=== PATIENT | male | born 1935 | race Caucasian/White ===

== ENCOUNTER 2018-05-05 16:23 | Inpatient (IN) | payer OTHER ==
--- NOTE | 2018-05-05 17:10 | PDOC ---
Attending Attestation - Resident Resident Name: Susy Witt - ED Attending Attestation I have performed the following: I have examined & evaluated the patient, The case was reviewed & discussed with the resident, I agree w/resident's findings & plan, Exceptions are as noted - HPI HPI: 05/05/18 18:12 Patient is a 82 M, with PMHx of essential tremor, DM, who presents s/p fall. Patient states that at 3:45 pm he was walking and fell on his right hip. He states that he was unable to get up on his own and called 911. Patient currently reports difficulty moving right side, secondary to pain. Pt denies any head injury, loc, neck pain, back pain, numbness/tingling/weakness, cp, sob , f/c. Allergies: NSAIDS PCP: Prince Balderas - Physicial Exam PE: 05/05/18 18:13 GENERAL: The patient is awake, alert, and fully oriented, Nontoxic - in no acute distress. HEAD: Normocephalic, atraumatic. EYES: extraocular movements intact, sclera anicteric, conjunctiva clear. NECK: Normal range of motion, supple ABDOMEN: Soft, nontender, No guarding, no rebound.No CVA tenderness EXTREMITIES: Palpable pulses. Left side --> FROM Right side --> no pain on log roll, no ttp, +pain with passive flexion/extension, no brusing noted. - Medical Decision Making 05/05/18 17:06 ham r/o fx with xray if nondiagnostic but still in pain will obtain CT 05/05/18 19:06 xray noted for femoral neck fx will admit for further management of his hip fx Heart Score/ECG Review - ECG Impressions Comment:: 05/05/18 18:18 Twelve-lead EKG was performed and reviewed by me. There is normal sinus rhythm with a normal rate. rate of 72 abnormal r wave progression no st changes suggestive of acut ischemia
[2018-05-05] MEDS ORDERED: morphine CARPU-JECT 2 MG/1 ML DISP.SYRIN IVPUSH ONE (17:11)
[2018-05-05] MEDS ORDERED: MORPHINE SULFATE 2 MG/ML VIAL ONE (17:15)
--- NOTE | 2018-05-05 17:19 | PDOC ---
History of Present Illness - General Chief Complaint: Injury Stated Complaint: INJURY Time Seen by Provider: 05/05/18 16:41 History Source: Patient Exam Limitations: No Limitations - History of Present Illness Initial Comments: 05/05/18 17:14 Pt is a 82yo m with PMH of DM and essential tremor presenting to ED because he fell on his right hip. Pt said that he was outside and fell on his right hip at a quarter to 4. He was unable to get up and so he called the ambulance. Pt said he could not move is L or R leg at the time. He denies hitting his head, losing consciousness. He denies pain in any other joint besides his R hip. He denies numbness, tingling, loss of bladder/bowel, pain in the back, neck pain, headache , knee pain, ankle pain, shortness of breath, chest pain. He attributes his fall to his tremors. He is not on any blood thinners PMH: see hpi PSH: R and L knee arthroplasty Meds: see med rec Allergies: PCN, Naprosyn, Sulindac, indomethacin, ASA Social: denies tobacco, alcohol, illicit drug use Past History - Past Medical History Allergies/Adverse Reactions: Allergies Allergy/AdvReac Type Severity Reaction Status Date / Time indomethacin Allergy Verified 05/05/18 17:05 naproxen [From Naprosyn] Allergy Verified 05/05/18 17:05 Penicillins Allergy Verified 05/05/18 17:05 sulindac Allergy Verified 05/05/18 17:05 Home Medications: Ambulatory Orders Cetyl Alc/Stearyl Alc/Pg/Sls [Cetaphil Cream] 1 applic TD BID 05/05/18 Colchicine 0.6 mg PO BID 05/05/18 Glipizide [Glipizide ER] 5 mg PO DAILY 05/05/18 Glipizide [Glipizide ER] 10 mg PO DAILY 05/05/18 Pioglitazone HCl [Actos] 30 mg PO DAILY 05/05/18 Primidone [Mysoline -] 250 mg PO HS 05/05/18 Primidone [Mysoline] 125 mg PO AM 05/05/18 Simvastatin 40 mg PO DAILY 05/05/18 Topiramate 75 mg PO BID 05/05/18 Triamterene/Hydrochlorothiazid [Triamterene-Hctz 37.5-25 mg Cp] 1 tab PO DAILY 05/05/18 COPD: No Diabetes: Yes Hypercholesterolemia: Yes Other medical history: gout, essential tremors - Suicide/Smoking/Psychosocial Hx Smoking History: Never smoked *Physical Exam - Vital Signs Last Vital Signs Temp Pulse Resp BP Pulse Ox 98.3 F 71 18 125/66 98 05/05/18 16:29 05/05/18 16:29 05/05/18 16:29 05/05/18 16:29 05/05/18 16:29 - Physical Exam Cardiovascular: positive: Regular Rhythm, Regular Rate, S1, S2 Vascular Pulses: Femoral (R): 2+, Femoral (L): 2+, Carotid (R): 2+, Carotid (L) : 2+, Dorsalis-Pedis (R): 2+, Doralis-Pedis (L): 2+ Musculoskeletal: positive: Other (R hip tenderness). negative: CVA Tenderness Extremity: positive: Normal Capillary Refill, Tender (tender to palpation in R hip joint), Pelvis Stable. negative: Normal Range of Motion (Unable to move R leg, would not let me passively move R leg) Neurologic: positive: art librarian II-XII NML intact, Fully Oriented, Normal Mood/Affect , Normal Response. negative: Motor Strength 5/5 (unable to fully evaluate R leg motor strength due to inability to move. Pt can move ankle and feet. ) Deep Tendon Reflexes: Knee (L): 2+, Knee (R): 2+ ED Treatment Course - LABORATORY CBC & Chemistry Diagram: 05/05/18 18:55 05/05/18 18:55 - RADIOLOGY Radiology Studies Ordered: Category Date Time Status HIP & PELVIS-LEFT [RAD] Stat Radiology 05/05/18 17:11 Ordered Medical Decision Making - Medical Decision Making 05/05/18 17:21 Pt is a 82yo m with PMH of DM and essential tremor presenting to ED because he fell on his right hip. Concern for hip fracture. Will order Xray Xray: femoral neck fracture. will admit ortho consulted *DC/Admit/Observation/Transfer Diagnosis at time of Disposition: Femoral neck fracture Qualifiers: Encounter type: initial encounter Fracture type: closed Laterality: left Qualified Code(s): S72.002A - Fracture of unspecified part of neck of left femur , initial encounter for closed fracture - Discharge Dispostion Decision to Admit order: Yes - Referrals - Patient Instructions - Post Discharge Activity
[2018-05-05 19:07] LABS: BASO % 0.3 % (0-2.0); EOS % 5.9 % (0-4.5); HEMATOCRIT 38.6 % (35.4-49); HEMOGLOBIN 12.8 GM/dL (11.7-16.9); LYMPH % 27.2 % (8-40); MCH 30.6 pg (25.7-33.7); MCHC 33.1 g/dl (32.0-35.9); MEAN CELL VOLUME 92.5 fl (80-96); MEAN PLT VOLUME 9.1 fl (7.5-11.1); MONO % 9.4 % (3.8-10.2); NEUT % 57.2 % (42.8-82.8); PLATELET COUNT 223 K/MM3 (134-434); RBC 4.18 M/mm3 (4.00-5.60); RDW 13.6 % (11.9-15.9); WHITE BLOOD COUNT 5.5 K/mm3 (4.0-10.0)
--- NOTE | 2018-05-05 19:39 | PN ---
Teaching Attending Note Name of Resident: Sriram Caldera ATTENDING PHYSICIAN STATEMENT I saw and evaluated the patient. I reviewed the resident's note and discussed the case with the resident. I agree with the resident's findings and plan as documented. SUBJECTIVE: Patient is an 82 year old man with PMHx of essential tremor, hyperlipidemia, ? gout, bilateral total knee replacement and NIDDM, who presents after a fall with right hip pain. Patient states that at 3:45 pm he was walking and fell on his right hip. He states that he was unable to get up on his own and called 911. Patient currently reports difficulty moving right side, secondary to pain. He denies any head injury, loc, neck pain, back pain, numbness/tingling/weakness , cp, or sob. OBJECTIVE: Alert Vital Signs Period Temp Pulse Resp BP Sys/Hill Pulse Ox Last 24 Hr 98.3 F 71 18 125/66 98 HEENT: No Jaundice, eye redness or discharge, PERRLA, EOMI. Normocephalic, atraumatic. External ears are normal and hearing is grossly intact. No nasal discharge. Neck: Supple, nontender. No palpable adenopathy or thyromegaly. No JVD Chest: Good effort. Clear to auscultation and percussion. Heart: Regular. No S3, rub or murmur Abdomen: Not distended, soft, nontender and no HSM. No rebound or guarding. Normoactive bowel sounds. Ext: External rotation of right leg. Distal sensory and motor function intact. Tender right hip and limited ROM. Peripheral pulses intact. No leg edema. Skin: Warm and dry. No petechiae, rash or ecchymosis. Neuro: Alert. Oriented x3. CN 2-12 grossly intact. Sensation grossly intact in all four extremities and DTR are symmetric. Home Medications Medication Instructions Recorded Cetyl Alc/Stearyl Alc/Pg/Sls 1 applic TD BID 05/05/18 [Cetaphil Cream] Colchicine 0.6 mg PO 05/05/18 Glipizide [Glipizide ER] 5 mg PO DAILY 05/05/18 Glipizide [Glipizide ER] 10 mg PO DAILY 05/05/18 Pioglitazone HCl [Actos] 30 mg PO DAILY 05/05/18 Primidone [Mysoline -] 250 mg PO HS 05/05/18 Simvastatin 40 mg PO DAILY 05/05/18 Topiramate 25 mg PO BID 05/05/18 Triamterene/Hydrochlorothiazid 1 tab PO DAILY 05/05/18 [Triamterene-Hctz 37.5-25 mg Cp] Abnormal Lab Results 05/05/18 18:55 Eosinophils % 5.9 H ASSESSMENT AND PLAN: 1. Fall/Right femoral neck fracture - Features consistent with a mechanical fall. Ortho consulted. Pain control with IV morphine, getting INR, CXR and EKG. NPO after midnight. Check uric acid. 2. DM - For now, we will hold the home diabetes drugs and implement sliding scale insulin regimen. Provide comprehensive diabetes care with patient teaching and counseling about the importance of euglycemia, eye care and foot care. 3. DVT prophylaxis - Lovenox 40 mg SQ q 24 hours. 4. Advance directives - Full code
[2018-05-05 20:30] LABS: ALBUMIN 3.9 g/dl (3.4-5.0); ALK PHOS 66 U/L (45-117); ANION GAP 12 MMOL/L (8-16); BILIRUBIN,TOTAL 0.2 mg/dL (0.2-1.0); BLOOD UREA NITROGEN 40 mg/dL (7-18); CHLORIDE 105 mmol/L (98-107); CO2 27 mmol/L (21-32); CREATININE 1.4 mg/dL (0.7-1.3); GLUCOSE,RANDOM 116 mg/dL (74-106); POTASSIUM 4.7 mmol/L (3.5-5.1); SGOT/AST 21 U/L (15-37); SGPT/ALT 28 U/L (12-78); SODIUM 144 mmol/L (136-145); TOT PROT 7.5 g/dl (6.4-8.2)
[2018-05-05] MEDS ORDERED: MORPHINE SULFATE 2 MG/ML VIAL IVPUSH PRN (20:38)
[2018-05-05] MEDS ORDERED: SODIUM CHLORIDE 1,000 ML IV SCH (20:45)
[2018-05-05 20:47] LABS: INR 1.04 (0.83-1.09); PROTHROMBIN TIME (PATIENT) 11.7 SEC (9.7-13.0)
--- NOTE | 2018-05-05 21:06 | HP ---
CHIEF COMPLAINT: Fall, right hip pain PCP: Dr. Balderas HISTORY OF PRESENT ILLNESS: 82 yo male with PMH NIDDM and essential tremor, presented to the ED s/p mechanical fall in the parking lot where he lives. He states he was getting out of his car around 16:00 and tripped into the grass. He was alone and the fall was unwitnessed, though he says he did not lose consciousness or hit his head. He said he landed on his right hip and states he immediate knew he "had done some damage" as he could not move the leg or get up due to pain. A neighbor noted him on the ground and came out to help. EMS was called at that time. Pt has baseline peripheral neuropathy in his feet b/l but denies any additional decreased sensation or parasthesias. He says his pain is currently a 6 out of 10 and that the morphine has helped. ER course was notable for: (1) Right Hip Radiograph noted with slightly displaced fracture of femoral neck (2) Morphine 2 mg IV (3) Recent Travel: none PAST MEDICAL HISTORY: NIDDM Essential Tremor PAST SURGICAL HISTORY: B/L knee replacements Social History: Smoking: denies Alcohol: Moderate Drugs: denies Family History: Allergies indomethacin Allergy (Verified 05/05/18 17:05) naproxen [From Naprosyn] Allergy (Verified 05/05/18 17:05) Penicillins Allergy (Verified 05/05/18 17:05) sulindac Allergy (Verified 05/05/18 17:05) HOME MEDICATIONS: Home Medications Medication Instructions Recorded Cetyl Alc/Stearyl Alc/Pg/Sls 1 applic TD BID 05/05/18 [Cetaphil Cream] Colchicine 0.6 mg PO BID 05/05/18 Glipizide [Glipizide ER] 5 mg PO DAILY 05/05/18 Glipizide [Glipizide ER] 10 mg PO DAILY 05/05/18 Pioglitazone HCl [Actos] 30 mg PO DAILY 05/05/18 Primidone [Mysoline -] 250 mg PO HS 05/05/18 Primidone [Mysoline] 125 mg PO AM 05/05/18 Simvastatin 40 mg PO DAILY 05/05/18 Topiramate 75 mg PO BID 05/05/18 Triamterene/Hydrochlorothiazid 1 tab PO DAILY 05/05/18 [Triamterene-Hctz 37.5-25 mg Cp] REVIEW OF SYSTEMS CONSTITUTIONAL: Absent: fever, chills, diaphoresis, generalized weakness, malaise, loss of appetite, weight change HEENT: Absent: rhinorrhea, nasal congestion, throat pain, throat swelling, difficulty swallowing, mouth swelling, ear pain, eye pain, visual changes CARDIOVASCULAR: Absent: chest pain, syncope, palpitations, irregular heart rate, lightheadedness , peripheral edema RESPIRATORY: Absent: cough, shortness of breath, dyspnea with exertion, orthopnea, wheezing, stridor, hemoptysis GASTROINTESTINAL: Absent: abdominal pain, abdominal distension, nausea, vomiting, diarrhea, constipation, melena, hematochezia GENITOURINARY: Absent: dysuria, frequency, urgency, hesitancy, hematuria, flank pain, genital pain MUSCULOSKELETAL: Right hip pain Absent: myalgia, arthralgia, joint swelling, back pain, neck pain SKIN: Absent: rash, itching, pallor HEMATOLOGIC/IMMUNOLOGIC: Absent: easy bleeding, easy bruising, lymphadenopathy, frequent infections ENDOCRINE: Absent: unexplained weight gain, unexplained weight loss, heat intolerance, cold intolerance NEUROLOGIC: Absent: headache, focal weakness or paresthesias, dizziness, unsteady gait, seizure, mental status changes, bladder or bowel incontinence PSYCHIATRIC: Absent: anxiety, depression, suicidal or homicidal ideation, hallucinations. PHYSICAL EXAMINATION Vital Signs - 24 hr 05/05/18 16:29 Temperature 98.3 F Pulse Rate 71 Respiratory 18 Rate Blood Pressure 125/66 O2 Sat by Pulse 98 Oximetry (%) GENERAL: A&O, no acute distress HEAD: Normocephalic, atraumatic. EYES: PERRL, EOMI, no scleral icterus EARS, NOSE, THROAT: oropharynx clear without exudates. Moist mucous membranes. NECK: supple without lymphadenopathy LUNGS: CTA b/l, no crackles or wheezes HEART: Regular rate and rhythm, normal S1 and S2 without murmur, rub or gallop. ABDOMEN: Soft, nontender to palpation, normoactive bowel sounds MUSCULOSKELETAL: Right hip pain with movement. minimal pain on palpation, Right leg externally rotated. No CVA tenderness. UPPER EXTREMITIES: 2+ pulses, warm, well-perfused. No cyanosis. No clubbing. No peripheral edema. LOWER EXTREMITIES: 2+ pulses, warm, well-perfused. No calf tenderness. No peripheral edema. Decreased sensation distal b/l legs NEUROLOGICAL: Cranial nerves II-XII grossly intact. Normal speech. 5/5 strength on LLE, RLE exam limited due to pain. PSYCHIATRIC: Cooperative. Good eye contact. Appropriate mood and affect. SKIN: Warm, dry, normal turgor, no rashes or lesions noted Laboratory Results - last 24 hr 05/05/18 05/05/18 05/05/18 18:55 18:55 19:31 WBC 5.5 RBC 4.18 Hgb 12.8 Hct 38.6 MCV 92.5 MCH 30.6 MCHC 33.1 RDW 13.6 Plt Count 223 MPV 9.1 Absolute Neuts (auto) 3.2 Neutrophils % 57.2 Lymphocytes % 27.2 Monocytes % 9.4 Eosinophils % 5.9 H Basophils % 0.3 Nucleated RBC % 0 PT with INR 11.70 INR 1.04 PTT (Actin FS) Sodium 144 Potassium 4.7 Chloride 105 Carbon Dioxide 27 Anion Gap 12 BUN 40 H Creatinine 1.4 H Creat Clearance w eGFR 48.52 Random Glucose 116 H Calcium 9.0 Total Bilirubin 0.2 AST 21 ALT 28 Alkaline Phosphatase 66 Total Protein 7.5 Albumin 3.9 05/05/18 19:55 WBC RBC Hgb Hct MCV MCH MCHC RDW Plt Count MPV Absolute Neuts (auto) Neutrophils % Lymphocytes % Monocytes % Eosinophils % Basophils % Nucleated RBC % PT with INR INR PTT (Actin FS) 25.2 Sodium Potassium Chloride Carbon Dioxide Anion Gap BUN Creatinine Creat Clearance w eGFR Random Glucose Calcium Total Bilirubin AST ALT Alkaline Phosphatase Total Protein Albumin ASSESSMENT/PLAN: 82 yo male with PMH NIDDM and essential tremor admitted to Med/Surg following Right hip fracture s/p mechanical fall. Right Hip Fracture -Pt s/p mechanical fall into the grass where he landed on his right side -Hip Radiograph noted with slightly displaced fracture of the femoral neck -ED discussed case with ortho who will place on the OR schedule for AM -Pain control with Morphine 2mg IV Q4 Preop Optimization for Surgical Repair in AM -Type and Screen -CXR noted with no acute lung pathology -ECG -Pain control with Morphine as above -NPO after midnight -Ortho consulted, will put on OR schedule for AM NIDDM -Pt has NIDDM with some peripheral neuropathy -Follow up quarterly with podiatry at [facility] for nail and foot care -unsure of pt's last A1C -A1C has never been checked here as per EMR, will order A1C ALISIA vs CKD secondary to NIDDM -BUN/Cr 40/1.4, ratio suggestive of prerenal pathophysiology -Pt with NIDDM and peripheral neuropathy could also suggest renal Hx Gout? -Pt denies any PMH other than mentioned above, though he is on Colchicine verified by pharmacy -Pt not having any acute gout flareups currently -Will check current uric acid level DVT Prophylaxis -Heparin 5000 units SQ TID FEN -Fluids: NS @ 50 cc/hr -Electrolytes: No electrolyte abnormalities, BMP in AM -Nutrition: NPO after midnight in case of elective repair in AM. Pt CAN eat tonight in ED or get a tray on the floor prior to midnight Disposition Med/Surg Visit type - Emergency Visit Emergency Visit: Yes ED Registration Date: 05/05/18 Care time: The patient presented to the Emergency Department on the above date and was hospitalized for further evaluation of their emergent condition. - New Patient This patient is new to me today: Yes Date on this admission: 05/05/18 - Critical Care Critical Care patient: No Hospitalist Screening - Colonoscopy Questionnaire Colonoscopy Questionnaire: Colonoscopy Questionnaire - Patient: 50 - 75 years old and never had a screening colonoscopy: No History of colon or rectal polyps, or CA: No History of IBD, Crohn's disease or UC: No History of abdominal radiation therapy as a child: No - Relative: 1 with colon or rectal CA, or polyps at age 60 or younger: No Colon or rectal CA diagnosed at age 45 or younger: No Multiple relatives with colon or rectal CA: No - Outcome: Screening Result: Negative Screen
[2018-05-05] MEDS: INSULIN SLIDING SCALE (NOVOLOG) 1 VIAL SQ SCH (21:58)
[2018-05-05] MEDS: HEPARIN NA (PORCINE) 5,000 UNITS/ML 1ML VIAL SQ SCH (22:08)
[2018-05-05 22:57] VITALS: BMI 23.8
[2018-05-06] MEDS ORDERED: ACETAMINOPHEN 325 MG TABLET (FP) PO ONE (00:47)
[2018-05-06 02:27] LABS: URINE APPEARANCE CLEAR; URINE BILIRUBIN NEGATIVE (<2.0 mg/dL); URINE COLOR STRAW; URINE GLUCOSE (UA) NEGATIVE (NEGATIVE); URINE KETONE NEGATIVE (NEGATIVE); URINE LEUK ESTERASE NEGATIVE (NEGATIVE); URINE NITRITE NEGATIVE (NEGATIVE); URINE PROTEIN NEGATIVE (NEGATIVE); URINE UROBILINOGEN NEGATIVE mg/dL (0.2-1.0)
[2018-05-06] MEDS: HEPARIN NA (PORCINE) 5,000 UNITS/ML 1ML VIAL SQ SCH (06:34)
[2018-05-06] MEDS: INSULIN SLIDING SCALE (NOVOLOG) 1 VIAL SQ SCH ×3 (06:36→17:23)
[2018-05-06] MEDS ORDERED: PRIMIDONE 250 MG TABLET PO SCH ×2 (07:00→22:00)
[2018-05-06 08:32] LABS: HEMATOCRIT 36.8 % (35.4-49); HEMOGLOBIN 12.1 GM/dL (11.7-16.9); MCH 30.3 pg (25.7-33.7); MCHC 32.9 g/dl (32.0-35.9); MEAN CELL VOLUME 92.2 fl (80-96); MEAN PLT VOLUME 8.8 fl (7.5-11.1); PLATELET COUNT 182 K/MM3 (134-434); RBC 3.99 M/mm3 (4.00-5.60); RDW 13.3 % (11.9-15.9); WHITE BLOOD COUNT 7.7 K/mm3 (4.0-10.0)
[2018-05-06 09:06] LABS: ANION GAP 10 MMOL/L (8-16); BLOOD UREA NITROGEN 31 mg/dL (7-18); CALCIUM 8.7 mg/dL (8.5-10.1); CHLORIDE 108 mmol/L (98-107); CO2 25 mmol/L (21-32); CREATININE 1.1 mg/dL (0.7-1.3); GLUCOSE,RANDOM 117 mg/dL (74-106); MAGNESIUM 1.8 mg/dL (1.8-2.4); PHOSPHOROUS 3.1 mg/dL (2.5-4.9); POTASSIUM 3.9 mmol/L (3.5-5.1); SODIUM 143 mmol/L (136-145)
[2018-05-06] MEDS ORDERED: COLCHICINE 0.6 MG TABLET (FP) PO SCH (10:00)
[2018-05-06] MEDS ORDERED: TRIAMTERENE AND HCTZ - 37.5 MG/25 MG CAPSULE PO SCH (10:00)
[2018-05-06] MEDS ORDERED: TOPIRAMATE 25 MG TABLET (FP) PO SCH (10:00)
--- NOTE | 2018-05-06 11:45 | CON.ORTH ---
Consult Reason for Consultation:: right hip fx - Alcohol/Substance Use Hx Alcohol Use: No - Smoking History Smoking history: Never smoked Home Medications - Allergies Allergies/Adverse Reactions: Allergies Allergy/AdvReac Type Severity Reaction Status Date / Time indomethacin Allergy Verified 05/05/18 17:05 naproxen [From Naprosyn] Allergy Verified 05/05/18 17:05 Penicillins Allergy Verified 05/05/18 17:05 sulindac Allergy Verified 05/05/18 17:05 - Home Medications Home Medications: Ambulatory Orders Cetyl Alc/Stearyl Alc/Pg/Sls [Cetaphil Cream] 1 applic TD BID 05/05/18 Colchicine 0.6 mg PO BID 05/05/18 Glipizide [Glipizide ER] 5 mg PO DAILY 05/05/18 Glipizide [Glipizide ER] 10 mg PO DAILY 05/05/18 Pioglitazone HCl [Actos] 30 mg PO DAILY 05/05/18 Primidone [Mysoline -] 250 mg PO HS 05/05/18 Primidone [Mysoline] 125 mg PO AM 05/05/18 Simvastatin 40 mg PO DAILY 05/05/18 Topiramate 75 mg PO BID 05/05/18 Triamterene/Hydrochlorothiazid [Triamterene-Hctz 37.5-25 mg Cp] 1 tab PO DAILY 05/05/18 Physical Exam for Ortho Vital Signs: Vital Signs Temperature 98.7 F 05/06/18 08:25 Pulse Rate 60 05/06/18 08:25 Respiratory Rate 20 05/06/18 08:25 Blood Pressure 122/65 05/06/18 08:25 O2 Sat by Pulse Oximetry (%) 99 05/06/18 09:00 Labs: CBC, BMP 05/06/18 07:15 05/06/18 07:15 INR, PTT INR 1.04 (0.83-1.09) 05/05/18 19:31 - Lower Extremity Hip: Yes: Right, Decreased ROM, Leg Externally Rotated, Leg Shortened, Pain, Swelling Imaging - Results X-ray: Report Reviewed, Image Reviewed Assessment/Plan 82 yo male with PMH NIDDM and essential tremor, presented to the ED s/p mechanical fall in the parking lot where he lives. He states he was getting out of his car around 16:00 and tripped into the grass. He was alone and the fall was unwitnessed, though he says he did not lose consciousness or hit his head. He said he landed on his right hip and states he immediate knew he "had done some damage" as he could not move the leg or get up due to pain. A neighbor noted him on the ground and came out to help. EMS was called at that time. Pt has baseline peripheral neuropathy in his feet b/l but denies any additional decreased sensation or parasthesias. He says his pain is currently a 6 out of 10 and that the morphine has helped. a/p right femoral neck fx Risks and benefits were d/w pt in detail OR for right hip marion surgical clearance NPO OR today d/w Dr. Gomes
--- NOTE | 2018-05-06 12:05 | EKG ---
Test Reason : Blood Pressure : / mmHG Vent. Rate : 072 BPM Atrial Rate : 072 BPM P-R Int : 190 ms QRS Dur : 078 ms QT Int : 378 ms P-R-T Axes : 055 008 038 degrees QTc Int : 413 ms NORMAL SINUS RHYTHM SEPTAL INFARCT , AGE UNDETERMINED ABNORMAL ECG NO PREVIOUS ECGS AVAILABLE Confirmed by ELAINE CAMP MD ([id number]) on 05/06/2018 12:04:58 PM Referred By: Confirmed By:ELAINE CAMP MD
[2018-05-06] MEDS ORDERED: BUPIVACAINE HCL/PF 0.5% (5MG/ML) 10 ML VIAL ONE (12:25)
[2018-05-06] MEDS ORDERED: MIDAZOLAM HCL 2 MG/2 ML SINGLE DOSE VIAL ONE (12:38)
[2018-05-06] MEDS ORDERED: PROPOFOL 20 ML ONE (12:41)
[2018-05-06] MEDS ORDERED: ceFAZolin SODIUM 1 GM VIAL IVPB ONE (13:01)
[2018-05-06] MEDS ORDERED: ROCURONIUM BROMIDE 50 MG/5 ML VIAL ONE (13:05)
[2018-05-06] MEDS ORDERED: ePHEDrine SULFATE 50 MG/1 ML AMPULE ONE (13:34)
[2018-05-06] MEDS ORDERED: VANCOMYCIN 1,000 MG VIAL (RESTRICTED TO ID ONLY) IVPB ONE (14:15)
[2018-05-06] MEDS ORDERED: SODIUM CHLORIDE 1,000 ML IV SCH (14:36)
[2018-05-06] MEDS ORDERED: ONDANSETRON 4 MG/2 ML VIAL IVPUSH PRN (14:59)
[2018-05-06] MEDS ORDERED: LACTATED RINGERS SOLUTION 1,000 ML IV SCH (15:00)
--- NOTE | 2018-05-06 15:48 | SPEC ---
DATE OF OPERATION: 05/06/2018 PREOPERATIVE DIAGNOSIS: Right displaced femoral neck fracture. POSTOPERATIVE DIAGNOSIS: Right displaced femoral neck fracture. PROCEDURE: Right hip hemiarthroplasty. SURGICAL ATTENDING: Mina Gomes MD FLORICULTURE TEACHER: DONNY Cm ANESTHESIA: General. CLOSURE: A Diana hip system with a No. 9 Accolade II femoral stem, a standard 51 bipolar, No. 1 Vicryl for fascia, 0 and 2-0 for subcutaneous and 3-0 Monocryl subcuticular, with skin glue for skin. ESTIMATED BLOOD LOSS: Less than 100 mL. COMPLICATIONS: None. CONDITION: To recovery room in stable condition. DESCRIPTION OF OPERATIVE PROCEDURE: The patient was taken to the operating room on May 05, 2018. Spinal anesthesia was administered by the anesthesiologist. IV antibiotic was administered prophylactically prior to the case. The patient was placed in the lateral decubitus position with all prominences well padded. The right hip area was prepped and draped in the usual sterile fashion. A 10- to 12-cm longitudinal incision over the posterolateral aspect of the greater trochanter Hemostasis was achieved using Bovie cautery. Sharp dissection was carried down to the level of the fascia, which was opened the entire length of the incision. The fibers of the gluteus gwen were spread in the direction of origin, exposing the greater trochanter. A Charnley retractor was placed in this layer and care was taken not to injure the sciatic nerve. The short external rotators were detached from their insertion to the greater trochanter and peeled off the capsule. A T-capsulotomy was then performed with the "T" extending down to the level of the labrum but not cutting the labrum. The femoral head was removed from the acetabulum by use of a corkscrew. It was measured to decide the appropriate size of the acetabular component. A trial reduction with the appropriate size acetabulum achieved good suction fit. Next, our attention was directed to the femur. The proximal femur was prepared using a box chisel, serial broaches and awls until the appropriate size broach achieved a good fit and fill with the appropriate version. Trial reduction with the bipolar revealed excellent stability. It was stable at 90 degrees of flexion and marked adduction. There was a positive hang test, negative telescoping and good stability in external rotation and extension. The trial component was removed. A real Accolade II stem and bipolar were then malleted into place and cold welded together. The hip was then reduced. Range of motion, stability and limb lengths were as described previously. The incision was copiously irrigated with antibiotic. Vancomycin powder was then placed into the hip joint. The capsule was then closed using 0 Vicryl suture. The fascia was then closed using no. 1 Vicryl, 0 and 2-0 subcutaneous, and 3-0 Monocryl subcuticular with skin glue for the skin. A sterile pressure dressing was applied. The patient was placed in the supine position with bilateral SCDs and an abduction pillow, and x-rays revealed excellent position of the components. The patient was transferred to recovery in stable condition. There were no complications. Estimated blood loss was less than 100 mL. Marcus CLAY/[id number]
[2018-05-06] MEDS: MORPHINE SULFATE 2 MG/ML VIAL IVPUSH PRN (16:02)
[2018-05-06] MEDS ORDERED: INSULIN SLIDING SCALE (NOVOLOG) 1 VIAL SQ SCH (16:30)
--- NOTE | 2018-05-06 16:31 | PN ---
Physical Exam: SUBJECTIVE: Patient seen and examined at bedside. No acute events overnight. Pt still complains of R hip pain due to injury. OBJECTIVE: Vital Signs Temperature 97.8 F 05/06/18 15:58 Pulse Rate 62 05/06/18 15:58 Respiratory Rate 20 18 15:58 Blood Pressure 125/71 05/06/18 15:58 O2 Sat by Pulse Oximetry (%) 97 05/06/18 15:58 GENERAL: A&O, no acute distress HEAD: Normocephalic, atraumatic. EYES: PERRL, EOMI, no scleral icterus EARS, NOSE, THROAT: oropharynx clear without exudates. Moist mucous membranes. NECK: supple without lymphadenopathy LUNGS: CTA b/l, no crackles or wheezes HEART: Regular rate and rhythm, normal S1 and S2 without murmur, rub or gallop. ABDOMEN: Soft, nontender to palpation, normoactive bowel sounds MUSCULOSKELETAL: Right hip pain with movement. minimal pain on palpation, Right leg externally rotated. No CVA tenderness. UPPER EXTREMITIES: 2+ pulses, warm, well-perfused. No cyanosis. No clubbing. No peripheral edema. LOWER EXTREMITIES: 2+ pulses, warm, well-perfused. No calf tenderness. No peripheral edema. Decreased sensation distal b/l legs NEUROLOGICAL: Cranial nerves II-XII grossly intact. Normal speech. 5/5 strength on LLE, RLE exam limited due to pain. PSYCHIATRIC: Cooperative. Good eye contact. Appropriate mood and affect. SKIN: Warm, dry, normal turgor, no rashes or lesions noted CBC, BMP 05/06/18 07:15 05/06/18 07:15 Hepatic Panel Total Bilirubin 0.2 mg/dL (0.2-1.0) 05/05/18 18:55 AST 21 U/L (15-37) 05/05/18 18:55 ALT 28 U/L (12-78) 05/05/18 18:55 Alkaline Phosphatase 66 U/L (45-117) 05/05/18 18:55 Albumin 3.9 g/dl (3.4-5.0) 05/05/18 18:55 Active Medications Aspirin (Asa -) 325 mg PO DAILY@0800 [facility] Atorvastatin Calcium (Lipitor -) 20 mg PO HS [facility] Colchicine (Colcrys -) 0.6 mg PO BID [facility] Fentanyl (Sublimaze Injection -) 50 mcg IVPUSH [id number] PRN PRN Reason: PAIN-PACU ORDER X 4 DOSES ONLY Cefazolin Sodium (Ancef 1 Gm Premixed Ivpb -) 1 gm in 50 mls @ 100 mls/hr IVPB Q8H [facility] Stop: 05/07/18 05:29 Sodium Chloride (Normal Saline -) 1,000 mls @ 50 mls/hr IV ASDIR [facility] Stop: 05/06/18 20:44 Last Admin: 05/06/18 15:22 Dose: 50 mls/hr Lactated Ringer's (Lactated Ringers Solution) 1,000 mls @ 75 mls/hr IV ASDIR [facility] Insulin Aspart (Novolog Vial Sliding Scale -) 1 vial SQ TIDAC [facility]; Protocol Morphine Sulfate (Morphine Sulfate) 2 mg IVPUSH Q4H PRN PRN Reason: PAIN LEVEL 6-10 Last Admin: 05/06/18 16:02 Dose: 2 mg Ondansetron HCl (Zofran Injection) 4 mg IVPUSH Q6H PRN PRN Reason: NAUSEA AND/OR VOMITING Primidone (Mysoline -) 125 mg PO AM [facility] Primidone (Mysoline -) 250 mg PO HS [facility] Topiramate (Topamax -) 75 mg PO BID [facility] IMAGING: R hip Xray: slightly displaced fx of femoral neck CXR: No acute lung pathology. ASSESSMENT/PLAN: 82F with PMH NIDDM and essential tremor admitted to Med/Surg following Right hip fracture s/p mechanical fall. #Right Hip Fracture; s/p R hip marion -f/u post-op surg recs -Morphine 2 mg IV Q4 for pain -PT -IS #NIDDM; Pt reports compliance with DM meds. HgbA1c 7.9% -BGMs -ISS -hold home meds #Essential Tremor -Topiramate 25 mg PO QD -Primidone 250 mg 1/2 tab qAM and 1 tab qHS #HLD -Atorvastatin 20 mg PO HS #ALISIA. 1.1 today. Resolved -BUN/Cr 40/1.4, ratio suggestive of prerenal pathophysiology -Pt with NIDDM and peripheral neuropathy could also suggest renal #DVT Prophylaxis -Heparin 5000U SQ TID #FEN -Fluids: LR @ 75 cc/hr -Electrolytes: No electrolyte abnormalities, BMP in AM -Nutrition: Diabetic diet Disposition -Med/Surg -Rehab likely after d/c Visit type - Emergency Visit Emergency Visit: Yes ED Registration Date: 05/05/18 Care time: The patient presented to the Emergency Department on the above date and was hospitalized for further evaluation of their emergent condition. - New Patient This patient is new to me today: Yes Date on this admission: 05/06/18 - Critical Care Critical Care patient: No
--- NOTE | 2018-05-06 18:13 | PN ---
Teaching Attending Note Name of Resident: Pamela Jackson ATTENDING PHYSICIAN STATEMENT I saw and evaluated the patient. I reviewed the resident's note and discussed the case with the resident. I agree with the resident's findings and plan as documented. SUBJECTIVE: No fever or chills . No abd pain , has R hip pain when he moves. denies any SOB or CP on exertion , can walk 2-3 blocks and cimb at lease 2 lfihgt of stairs without having to stop. exercises in gym and lifts weights OBJECTIVE: NAD Cv: RRR, no MRg Lungs: CTAB Ext: R hip tenderness , R LE is shorter and externally rotated. DP 2+ b/l. ASSESSMENT AND PLAN: 82 y/o man with h/o essential tremor, hyperlipidemia, possible gout, bilateral total knee replacement and Dm who presented with R hip pain after a mechanical fall. 1- R Femoral neck Fx: - pain control - to OR today - pre-op risk stratification : the patient has h/o Dm , and HLP, but has no h/ o CAD , no exertional CP, no signs of arrhythmias, ACS or CHF. his EKG shows NSR with no ischemic changes. the patient has good functional capacity and METS of 10. this procedure is an intermediate risk procedure. the patient has a low risk for robb-op cardiac complications for this intermediate risk procedure and no further cardiac w/u is indicated at this time 2- h/o DM SSI . hold po meds 3- HLP: statin therapy dispo : need rehab at dc
[2018-05-06] MEDS ORDERED: ceFAZolin SODIUM 1 GM VIAL ONE (20:41)
[2018-05-06] MEDS ORDERED: DEXTROSE 5%-WATER - 50 ML IVPB ONE (20:42)
[2018-05-06] MEDS: CEFAZOLIN 1 GM in DEXTROSE 5%-WATER - 50 ML IVPB SCH (20:45)
[2018-05-06] MEDS ORDERED: PT OWN MED DRAWER 7, Y5N ONE (20:54)
[2018-05-06] MEDS ORDERED: CEFAZOLIN 1 GM/D5W 50 ML IVPB SCH (21:00)
[2018-05-06] MEDS ORDERED: CEFAZOLIN 1 GM/D5W 1 GM/50 ML BAG IVPB SCH (21:00)
[2018-05-06] MEDS: ATORVASTATIN CA 20 MG TABLET (FP) PO SCH (21:03)
[2018-05-06] MEDS: TOPIRAMATE 25 MG TABLET (FP) PO SCH (21:03)
[2018-05-06] MEDS: COLCHICINE 0.6 MG TABLET (FP) PO SCH (21:04)
[2018-05-06] MEDS: PRIMIDONE 250 MG TABLET PO SCH (21:04)
[2018-05-06] MEDS ORDERED: ATORVASTATIN CA 20 MG TABLET (FP) PO SCH (22:00)
[2018-05-07] MEDS: MORPHINE SULFATE 2 MG/ML VIAL IVPUSH PRN ×2 (01:26→11:32)
[2018-05-07] MEDS ORDERED: DEXTROSE 5%-WATER - 50 ML IVPB ONE (05:20)
[2018-05-07] MEDS ORDERED: ceFAZolin SODIUM 1 GM VIAL ONE (05:20)
[2018-05-07] MEDS: CEFAZOLIN 1 GM in DEXTROSE 5%-WATER - 50 ML IVPB SCH (05:24)
[2018-05-07] MEDS ORDERED: PT OWN MED DRAWER 7, Y5N ONE ×2 (06:37→20:56)
[2018-05-07] MEDS: PRIMIDONE 250 MG TABLET PO SCH ×2 (06:42→21:13)
[2018-05-07] MEDS: INSULIN SLIDING SCALE (NOVOLOG) 1 VIAL SQ SCH ×3 (06:43→17:16)
[2018-05-07] MEDS ORDERED: ASPIRIN 325 MG TABLET PO SCH (08:00)
[2018-05-07] MEDS: ASPIRIN 325 MG TABLET PO SCH (08:29)
[2018-05-07] MEDS: HEPARIN NA (PORCINE) 5,000 UNITS/ML 1ML VIAL SQ SCH ×3 (08:29→21:12)
[2018-05-07 08:31] LABS: HEMATOCRIT 35.8 % (35.4-49); HEMOGLOBIN 11.7 GM/dL (11.7-16.9); MCH 30.2 pg (25.7-33.7); MCHC 32.8 g/dl (32.0-35.9); MEAN CELL VOLUME 92.3 fl (80-96); MEAN PLT VOLUME 8.6 fl (7.5-11.1); PLATELET COUNT 168 K/MM3 (134-434); RBC 3.88 M/mm3 (4.00-5.60); RDW 13.5 % (11.9-15.9); WHITE BLOOD COUNT 8.9 K/mm3 (4.0-10.0)
[2018-05-07 09:04] LABS: ANION GAP 2 MMOL/L (8-16); BLOOD UREA NITROGEN 19 mg/dL (7-18); CALCIUM 8.3 mg/dL (8.5-10.1); CHLORIDE 106 mmol/L (98-107); CO2 30 mmol/L (21-32); CREATININE 1.3 mg/dL (0.7-1.3); GLUCOSE,RANDOM 185 mg/dL (74-106); POTASSIUM 4.3 mmol/L (3.5-5.1); SODIUM 138 mmol/L (136-145)
[2018-05-07] MEDS: TOPIRAMATE 25 MG TABLET (FP) PO SCH ×2 (10:29→21:12)
[2018-05-07] MEDS: COLCHICINE 0.6 MG TABLET (FP) PO SCH ×2 (10:29→21:12)
--- NOTE | 2018-05-07 12:19 | PN ---
Progress Note, Physician Chief Complaint: day #1 s/p right hip hemiarthroplasty - Current Medication List Current Medications: Active Medications Aspirin (Asa -) 325 mg PO DAILY@0800 [facility] Last Admin: 05/07/18 08:29 Dose: 325 mg Atorvastatin Calcium (Lipitor -) 20 mg PO HS [facility] Last Admin: 05/06/18 21:03 Dose: 20 mg Colchicine (Colcrys -) 0.6 mg PO BID [facility] Last Admin: 05/07/18 10:29 Dose: 0.6 mg Fentanyl (Sublimaze Injection -) 50 mcg IVPUSH [id number] PRN PRN Reason: PAIN-PACU ORDER X 4 DOSES ONLY Heparin Sodium (Porcine) (Heparin -) 5,000 unit SQ TID [facility] Last Admin: 05/07/18 08:29 Dose: 5,000 unit Insulin Aspart (Novolog Vial Sliding Scale -) 1 vial SQ TIDAC [facility]; Protocol Last Admin: 05/07/18 11:38 Dose: 1 units Morphine Sulfate (Morphine Sulfate) 2 mg IVPUSH Q4H PRN PRN Reason: PAIN LEVEL 6-10 Last Admin: 05/07/18 11:32 Dose: 2 mg Ondansetron HCl (Zofran Injection) 4 mg IVPUSH Q6H PRN PRN Reason: NAUSEA AND/OR VOMITING Primidone (Mysoline -) 125 mg PO AM [facility] Last Admin: 05/07/18 06:42 Dose: 125 mg Primidone (Mysoline -) 250 mg PO HS [facility] Last Admin: 05/06/18 21:04 Dose: 250 mg Topiramate (Topamax -) 75 mg PO BID [facility] Last Admin: 05/07/18 10:29 Dose: 75 mg - Objective Vital Signs: Vital Signs Temperature 97.8 F 05/07/18 08:00 Pulse Rate 77 05/07/18 08:00 Respiratory Rate 16 05/07/18 08:00 Blood Pressure 115/65 05/07/18 08:00 O2 Sat by Pulse Oximetry (%) 98 05/07/18 09:00 Labs: CBC, BMP 05/07/18 07:50 05/07/18 07:50 INR, PTT INR 1.04 (0.83-1.09) 05/05/18 19:31 Assessment/Plan doing well s/p GA for right hip surgery. Pain has been under good control with morphine; no anesthetic issues/complications
--- NOTE | 2018-05-07 12:30 | PN ---
Progress Note (short form) - Note Progress Note: Pt seen and examined. He is on POD #1 s/p right hip marion. Doing well. Some pain , not severe. AVSS H/H stable PE RLE looks good, dressing CDI NVI, good ROM at the right toes, foot, ankle. Imp Overall doing well on POD #1 s/p right hip marion surgery Rec P.T. PWB right LE DC planning, SNF likely F/U as an out pt
--- NOTE | 2018-05-07 16:43 | PN ---
Physical Exam: SUBJECTIVE: Patient seen and examined at bedside. No acute events overnight. Pt complains of pain in R leg, but pain has been controlled overnight. OBJECTIVE: Vital Signs Temperature 100.6 F H 05/07/18 14:57 Pulse Rate 83 05/07/18 14:57 Respiratory Rate 16 05/07/18 14:57 Blood Pressure 119/60 05/07/18 14:57 O2 Sat by Pulse Oximetry (%) 98 05/07/18 09:00 GENERAL: A&O, no acute distress HEAD: Normocephalic, atraumatic. EYES: PERRL, EOMI, no scleral icterus EARS, NOSE, THROAT: oropharynx clear without exudates. Moist mucous membranes. NECK: supple without lymphadenopathy LUNGS: CTA b/l, no crackles or wheezes HEART: Regular rate and rhythm, normal S1 and S2 without murmur, rub or gallop. ABDOMEN: Soft, nontender to palpation, normoactive bowel sounds MUSCULOSKELETAL: Right hip pain with movement. minimal pain on palpation, Right leg externally rotated. No CVA tenderness. UPPER EXTREMITIES: 2+ pulses, warm, well-perfused. No cyanosis. No clubbing. No peripheral edema. LOWER EXTREMITIES: 2+ pulses, warm, well-perfused. No calf tenderness. No peripheral edema. Decreased sensation distal b/l legs. Surgical dressing on R hip c/d/i with no drainage or bleeding. NEUROLOGICAL: Cranial nerves II-XII grossly intact. Normal speech. 5/5 strength on LLE, RLE exam limited due to pain. PSYCHIATRIC: Cooperative. Good eye contact. Appropriate mood and affect. SKIN: Warm, dry, normal turgor, no rashes or lesions noted CBC, BMP 05/07/18 07:50 05/07/18 07:50 Active Medications Aspirin (Asa -) 325 mg PO DAILY@0800 [facility] Last Admin: 05/07/18 08:29 Dose: 325 mg Atorvastatin Calcium (Lipitor -) 20 mg PO HS [facility] Last Admin: 05/06/18 21:03 Dose: 20 mg Colchicine (Colcrys -) 0.6 mg PO BID [facility] Last Admin: 05/07/18 10:29 Dose: 0.6 mg Fentanyl (Sublimaze Injection -) 50 mcg IVPUSH [id number] PRN PRN Reason: PAIN-PACU ORDER X 4 DOSES ONLY Heparin Sodium (Porcine) (Heparin -) 5,000 unit SQ TID [facility] Last Admin: 05/07/18 13:41 Dose: 5,000 unit Insulin Aspart (Novolog Vial Sliding Scale -) 1 vial SQ TIDAC [facility]; Protocol Last Admin: 05/07/18 11:38 Dose: 1 units Morphine Sulfate (Morphine Sulfate) 2 mg IVPUSH Q4H PRN PRN Reason: PAIN LEVEL 6-10 Last Admin: 05/07/18 11:32 Dose: 2 mg Ondansetron HCl (Zofran Injection) 4 mg IVPUSH Q6H PRN PRN Reason: NAUSEA AND/OR VOMITING Primidone (Mysoline -) 125 mg PO AM [facility] Last Admin: 05/07/18 06:42 Dose: 125 mg Primidone (Mysoline -) 250 mg PO HS [facility] Last Admin: 05/06/18 21:04 Dose: 250 mg Topiramate (Topamax -) 75 mg PO BID [facility] Last Admin: 05/07/18 10:29 Dose: 75 mg IMAGING: R hip Xray: slightly displaced fx of femoral neck CXR: No acute lung pathology. ASSESSMENT/PLAN: 82F with PMH NIDDM and essential tremor admitted to Med/Surg following Right hip fx, s/p R hip marion, POD #1. #Right Hip Fracture; s/p R hip marion, POD #1. -f/u post-op surg recs -Morphine 2 mg IV Q4 for pain -PT -IS #NIDDM; Pt reports compliance with DM meds. HgbA1c 7.9% -BGMs -ISS -hold home meds #Essential Tremor -Topiramate 25 mg PO QD -Primidone 250 mg 1/2 tab qAM and 1 tab qHS #HLD -Atorvastatin 20 mg PO HS #ALISIA. Resolved -BUN/Cr 40/1.4, ratio suggestive of prerenal pathophysiology -encourage oral hydration #hx of gout -colchicine 0.6 mg BID #DVT Prophylaxis -Heparin 5000U SQ TID #FEN -Fluids: LR @ 75 cc/hr -Electrolytes: No electrolyte abnormalities, BMP in AM -Nutrition: Diabetic diet Disposition -Med/Surg -Rehab likely after d/c Visit type - Emergency Visit Emergency Visit: Yes ED Registration Date: 05/05/18 Care time: The patient presented to the Emergency Department on the above date and was hospitalized for further evaluation of their emergent condition. - New Patient This patient is new to me today: No - Critical Care Critical Care patient: No
--- NOTE | 2018-05-07 16:56 | PN ---
Teaching Attending Note Name of Resident: Pamela Jackson ATTENDING PHYSICIAN STATEMENT I saw and evaluated the patient. I reviewed the resident's note and discussed the case with the resident. I agree with the resident's findings and plan as documented. SUBJECTIVE: No fever or chills . No abd pain . no SOB. NO CP. pain in R hip when moved OBJECTIVE: NAD Cv: RRR, no MRg Lungs: CTAB Ext: R hip tenderness , R LE is shorter and externally rotated. DP 2+ b/l. ASSESSMENT AND PLAN: 82 y/o man with h/o essential tremor, hyperlipidemia, possible gout, bilateral total knee replacement and Dm who presented with R hip pain after a mechanical fall. 1- R Femoral neck Fx: s/p R hip hemiarthroplasty - pain control , add tylenol and oxy in addition to morphine. dc morphine in am - PT - DVT px - fever this am , likely post op . monitor 2- ALISIA: improved . dc IVF . asha hydration 3-h/o DM SSI . hold po meds 4- HLP: statin therapy dispo :can dc when rehab bed is available .
[2018-05-07] MEDS ORDERED: ACETAMINOPHEN 325 MG TABLET (FP) PO PRN (16:59)
[2018-05-07] MEDS ORDERED: MORPHINE SULFATE 2 MG/ML VIAL IVPUSH PRN (17:00)
[2018-05-07] MEDS: ATORVASTATIN CA 20 MG TABLET (FP) PO SCH (21:12)
[2018-05-08] MEDS: PRIMIDONE 250 MG TABLET PO SCH ×2 (06:32→21:56)
[2018-05-08] MEDS: HEPARIN NA (PORCINE) 5,000 UNITS/ML 1ML VIAL SQ SCH ×3 (06:33→21:53)
[2018-05-08] MEDS: oxyCODONE HCL 5 MG TABLET PO PRN ×2 (06:33→21:57)
[2018-05-08] MEDS: INSULIN SLIDING SCALE (NOVOLOG) 1 VIAL SQ SCH ×3 (07:00→16:19)
[2018-05-08 07:38] LABS: HEMATOCRIT 35.5 % (35.4-49); HEMOGLOBIN 11.7 GM/dL (11.7-16.9); MCH 30.2 pg (25.7-33.7); MCHC 32.9 g/dl (32.0-35.9); MEAN PLT VOLUME 8.3 fl (7.5-11.1); PLATELET COUNT 167 K/MM3 (134-434); RBC 3.86 M/mm3 (4.00-5.60); RDW 13.3 % (11.9-15.9); WHITE BLOOD COUNT 10.5 K/mm3 (4.0-10.0)
[2018-05-08] MEDS: ASPIRIN 325 MG TABLET PO SCH (08:40)
[2018-05-08] MEDS: TOPIRAMATE 25 MG TABLET (FP) PO SCH ×2 (09:49→21:53)
[2018-05-08] MEDS: COLCHICINE 0.6 MG TABLET (FP) PO SCH ×2 (09:50→21:53)
--- NOTE | 2018-05-08 15:27 | PN ---
Progress Note (short form) - Note Progress Note: Subjective: fever , no chills. pain is better. No cough . Objective: Vital Signs: Last Vital Signs Temp Pulse Resp BP Pulse Ox 98.2 F 74 17 118/50 98 05/08/18 08:27 05/08/18 08:27 05/08/18 08:27 05/08/18 08:27 05/08/18 09:00 Laboratory Results - last 24 hr 05/07/18 05/07/18 05/08/18 16:23 21:23 06:05 WBC RBC Hgb Hct MCV MCH MCHC RDW Plt Count MPV POC Glucometer 190 210 171 05/08/18 05/08/18 07:00 11:29 WBC 10.5 H RBC 3.86 L Hgb 11.7 Hct 35.5 MCV 92.0 MCH 30.2 MCHC 32.9 RDW 13.3 Plt Count 167 MPV 8.3 POC Glucometer 271 Physical Exam: NAD Cv: RRR, 2/6 SM at RUSB. Lungs: CTAB Ext: R hip tenderness, surgical dressing on R lateral hip. DP 2+ DP 2+ b/l. ASSESSMENT AND PLAN: 82 y/o man with h/o essential tremor, hyperlipidemia, possible gout, bilateral total knee replacement and Dm who presented with R hip pain after a mechanical fall. 1- R Femoral neck Fx: s/p R hip hemiarthroplasty - pain control ,dc morphine . cont tylenol and oxycodone - PT - fever > 24 hr after sx., check UA and cxray . check US to r/o DVT - DVT PX 2- ALISIA: improved . oral hydration 3-H/o DM SSI . hold po meds. 4- HLP: statin therapy dispo : Monitor for fever . Cm to arrange for rehab when stable Visit type - Emergency Visit Emergency Visit: Yes ED Registration Date: 05/05/18 Care time: The patient presented to the Emergency Department on the above date and was hospitalized for further evaluation of their emergent condition. - New Patient This patient is new to me today: No - Critical Care Critical Care patient: No
[2018-05-08] MEDS: ATORVASTATIN CA 20 MG TABLET (FP) PO SCH (21:53)
[2018-05-08] MEDS ORDERED: PT OWN MED DRAWER 7, Y5N ONE (21:56)
[2018-05-08] MEDS: DOCUSATE SODIUM 100 MG CAPSULE (FP) PO PRN (22:03)
[2018-05-08 22:12] LABS: URINE APPEARANCE CLEAR; URINE BILIRUBIN NEGATIVE (<2.0 mg/dL); URINE COLOR YELLOW; URINE GLUCOSE (UA) 1+ (NEGATIVE); URINE KETONE NEGATIVE (NEGATIVE); URINE LEUK ESTERASE NEGATIVE (NEGATIVE); URINE NITRITE NEGATIVE (NEGATIVE); URINE UROBILINOGEN NEGATIVE mg/dL (0.2-1.0)
[2018-05-08 22:14] LABS: URINE PROTEIN 1+ (NEGATIVE)
[2018-05-08 22:15] LABS: URINE MUCUS RARE
[2018-05-08] MEDS: ACETAMINOPHEN 325 MG TABLET (FP) PO PRN (22:30)
[2018-05-09] MEDS: oxyCODONE HCL 5 MG TABLET PO PRN (05:55)
[2018-05-09] MEDS: HEPARIN NA (PORCINE) 5,000 UNITS/ML 1ML VIAL SQ SCH ×3 (05:56→21:16)
[2018-05-09] MEDS: INSULIN SLIDING SCALE (NOVOLOG) 1 VIAL SQ SCH ×4 (06:27→21:16)
[2018-05-09] MEDS: PRIMIDONE 250 MG TABLET PO SCH ×2 (06:28→21:16)
[2018-05-09 07:52] LABS: BASO % 0.3 % (0-2.0); EOS % 1.7 % (0-4.5); HEMATOCRIT 31.3 % (35.4-49); HEMOGLOBIN 10.4 GM/dL (11.7-16.9); LYMPH % 13.9 % (8-40); MCH 30.3 pg (25.7-33.7); MEAN CELL VOLUME 91.8 fl (80-96); MONO % 10.4 % (3.8-10.2); NEUT % 73.7 % (42.8-82.8); PLATELET COUNT 159 K/MM3 (134-434); RBC 3.41 M/mm3 (4.00-5.60); RDW 13.2 % (11.9-15.9); WHITE BLOOD COUNT 9.2 K/mm3 (4.0-10.0)
[2018-05-09] MEDS: ASPIRIN 325 MG TABLET PO SCH (08:09)
[2018-05-09 08:31] LABS: ANION GAP 10 MMOL/L (8-16); BLOOD UREA NITROGEN 28 mg/dL (7-18); CHLORIDE 106 mmol/L (98-107); CO2 25 mmol/L (21-32); CREATININE 1.4 mg/dL (0.7-1.3); GLUCOSE,RANDOM 189 mg/dL (74-106); POTASSIUM 3.7 mmol/L (3.5-5.1); SODIUM 141 mmol/L (136-145)
[2018-05-09] MEDS: COLCHICINE 0.6 MG TABLET (FP) PO SCH ×2 (09:36→23:00)
[2018-05-09] MEDS: TOPIRAMATE 25 MG TABLET (FP) PO SCH ×2 (09:36→21:16)
[2018-05-09] MEDS: ACETAMINOPHEN 325 MG TABLET (FP) PO PRN ×2 (09:40→21:15)
[2018-05-09] MEDS ORDERED: SODIUM CHLORIDE 1,000 ML IV SCH (11:45)
[2018-05-09] MEDS: POLYETHYLENE GLYCOL 3350 119 GM BTL PO SCH (12:19)
--- NOTE | 2018-05-09 13:51 | PN ---
Physical Exam: SUBJECTIVE: Patient seen and examined at bedside, appears slightly confused. Fever to 102.9 overnight Hip/surgical pain under control. Now complains of left sacral pain. OBJECTIVE: Vital Signs Period Temp Pulse Resp BP Sys/Hill Pulse Ox Last 24 Hr 98.6 F-102.9 F 73-90 18-20 92-123/54-68 98 GENERAL: A&Ox3, NAD HEAD: NC/AT EYES: PERRLA, EOMI, no scleral icterus EARS, NOSE, THROAT: oropharynx clear without exudates. Moist mucous membranes. NECK: supple without lymphadenopathy LUNGS: CTA b/l, no crackles or wheezes HEART: Regular rate and rhythm, S1S2, mild systolic murmur at right sternal border ABDOMEN: Soft, NT/ND, normoactive bowel sounds MUSCULOSKELETAL: Right hip pain with movement, minimal pain on palpation, right leg externally rotated. No sacral ulcer. UPPER EXTREMITIES: 2+ pulses, warm, well-perfused. No cyanosis. No clubbing. No peripheral edema. LOWER EXTREMITIES: 2+ pulses, warm, well-perfused. No calf tenderness. No peripheral edema. Decreased sensation distal b/l legs. Surgical dressing on R hip c/d/i with no drainage or bleeding NEUROLOGICAL: CN II-XII grossly intact. Normal speech. 5/5 strength x RUE, LUE , LLE; RLE exam limited due to pain. PSYCHIATRIC: Cooperative. Good eye contact. Appropriate mood and affect. Slightly confused. SKIN: Warm, dry, normal turgor, no rashes or lesions noted Laboratory Results - last 24 hr 05/08/18 05/08/18 05/08/18 16:15 21:45 22:01 WBC RBC Hgb Hct MCV MCH MCHC RDW Plt Count MPV Absolute Neuts (auto) Neutrophils % Lymphocytes % Monocytes % Eosinophils % Basophils % Nucleated RBC % Sodium Potassium Chloride Carbon Dioxide Anion Gap BUN Creatinine Creat Clearance w eGFR POC Glucometer 239 210 Random Glucose Calcium Urine Color Yellow Urine Appearance Clear Urine pH 5.0 D Ur Specific [place] 1.025 Urine Protein 1+ H Urine Glucose (UA) 1+ H Urine Ketones Negative Urine Blood 1+ H Urine Nitrite Negative Urine Bilirubin Negative Urine Urobilinogen Negative Ur Leukocyte Esterase Negative Urine WBC (Auto) <1 Urine RBC (Auto) 1 Urine Mucus Rare 05/09/18 05/09/18 05/09/18 05:45 07:00 07:00 WBC 9.2 RBC 3.41 L Hgb 10.4 L Hct 31.3 L MCV 91.8 MCH 30.3 MCHC 33.0 RDW 13.2 Plt Count 159 MPV 9.0 Absolute Neuts (auto) 6.8 Neutrophils % 73.7 D Lymphocytes % 13.9 D Monocytes % 10.4 H Eosinophils % 1.7 Basophils % 0.3 Nucleated RBC % 0 Sodium 141 Potassium 3.7 Chloride 106 Carbon Dioxide 25 Anion Gap 10 BUN 28 H Creatinine 1.4 H Creat Clearance w eGFR 48.52 POC Glucometer 182 Random Glucose 189 H Calcium 8.0 L Urine Color Urine Appearance Urine pH Ur Specific [place] Urine Protein Urine Glucose (UA) Urine Ketones Urine Blood Urine Nitrite Urine Bilirubin Urine Urobilinogen Ur Leukocyte Esterase Urine WBC (Auto) Urine RBC (Auto) Urine Mucus 05/09/18 11:40 WBC RBC Hgb Hct MCV MCH MCHC RDW Plt Count MPV Absolute Neuts (auto) Neutrophils % Lymphocytes % Monocytes % Eosinophils % Basophils % Nucleated RBC % Sodium Potassium Chloride Carbon Dioxide Anion Gap BUN Creatinine Creat Clearance w eGFR POC Glucometer 305 Random Glucose Calcium Urine Color Urine Appearance Urine pH Ur Specific [place] Urine Protein Urine Glucose (UA) Urine Ketones Urine Blood Urine Nitrite Urine Bilirubin Urine Urobilinogen Ur Leukocyte Esterase Urine WBC (Auto) Urine RBC (Auto) Urine Mucus Active Medications Generic Name Dose Route Start Last Admin Trade Name Rober PRN Reason Stop Dose Admin Acetaminophen 650 mg 05/08/18 22:37 05/09/18 09:40 Tylenol - PO 650 mg Q6H PRN Administration PAIN OR FEVER Aspirin 325 mg 05/07/18 08:00 05/09/18 08:09 Asa - PO 325 mg DAILY@0800 [facility] Administration Atorvastatin Calcium 20 mg 05/06/18 22:00 05/08/18 21:53 Lipitor - PO 20 mg HS [facility] Administration Colchicine 0.6 mg 05/06/18 22:00 05/09/18 09:36 Colcrys - PO 0.6 mg BID [facility] Administration Docusate Sodium 100 mg 05/07/18 17:00 05/08/18 22:03 Colace - PO 100 mg Q12H PRN Administration CONSTIPATION Fentanyl 50 mcg 05/06/18 14:59 Sublimaze Injection - IVPUSH [id number] PRN PAIN-PACU ORDER X 4 DOSES ONLY Heparin Sodium (Porcine) 5,000 unit 05/07/18 08:00 05/09/18 05:56 Heparin - SQ 5,000 unit TID [facility] Administration Sodium Chloride 1,000 mls @ 100 mls/hr 05/09/18 11:45 05/09/18 12:18 Normal Saline - IV 100 mls/hr ASDIR [facility] Administration Sodium Chloride 1,000 mls @ 75 mls/hr 05/09/18 14:00 Normal Saline - IV ASDIR [facility] Insulin Aspart 1 vial 05/06/18 16:30 05/09/18 11:52 Novolog Vial Sliding Scale - SQ 6 units TIDAC [facility] Administration Protocol Oxycodone HCl 5 mg 05/07/18 16:59 05/09/18 05:55 Roxicodone - PO 5 mg Q4H PRN Administration PAIN LEVEL 4 - 6 Polyethylene Glycol 17 gm 05/09/18 11:45 05/09/18 12:19 Miralax (For Daily Use) - PO 17 gm DAILY [facility] Administration Primidone 125 mg 05/07/18 07:00 05/09/18 06:28 Mysoline - PO 125 mg AM [facility] Administration Primidone 250 mg 05/06/18 22:00 05/08/18 21:56 Mysoline - PO 250 mg HS [facility] Administration Senna 2 tab 05/09/18 11:41 Senna - PO HS PRN CONSTIPATION Topiramate 75 mg 05/06/18 22:00 05/09/18 09:36 Topamax - PO 75 mg BID [facility] Administration ASSESSMENT/PLAN: 82 y/o M w/ PMHx NIDDM, essential tremor admitted 2/2 R hip fx, s/p R hip marion, POD #3. #Right Hip Fracture; s/p R hip marion, POD #3. - f/u post-op surg recs - oxycodone 2 mg IV Q4 for pain - PT - IS - d/c will be to SNF, SW is on board and facility placement ready - spiking intermittent fevers, BCx and UCx sent #NIDDM - POC glucose at 305 - repeat HbA1c pending - BGMs - ISS - hold home meds #Essential Tremor - Topiramate 25 mg PO QD - Primidone 250 mg 1/2 tab qAM and 1 tab qHS #HLD - Atorvastatin 20 mg PO HS #ALISIA - Cr 1.4 --> 1.1 --> 1.3 --> 1.4 - NS @ 75 - encourage oral hydration #hx of gout -colchicine 0.6 mg BID #DVT Prophylaxis - Heparin 5000U SQ TID #FEN - Fluids: NS @ 75 cc/hr - Electrolytes: No electrolyte abnormalities, BMP in AM - Nutrition: Diabetic diet #Dispo - Med/Surg - SNF after d/c, SW is on board and facility placement ready Visit type - Emergency Visit Emergency Visit: No - New Patient This patient is new to me today: Yes Date on this admission: 05/09/18 - Critical Care Critical Care patient: No
[2018-05-09] MEDS: SODIUM CHLORIDE 1,000 ML IV SCH (14:23)
--- NOTE | 2018-05-09 17:52 | PN ---
Teaching Attending Note Name of Resident: Teodoro Dixon ATTENDING PHYSICIAN STATEMENT I saw and evaluated the patient. I reviewed the resident's note and discussed the case with the resident. I agree with the resident's findings and plan as documented. SUBJECTIVE: cont to have fever. no abd pain, dysuria, [place], or diarrhea. has constipation OBJECTIVE: NAD. MMM Cv: RRR, 2/6 SM at RUSB. Lungs: CTAB Ext: R hip tenderness, surgical dressing on R lateral hip. DP 2+ DP 2+ b/l. ASSESSMENT AND PLAN: 82 y/o man with h/o essential tremor, hyperlipidemia, possible gout, bilateral total knee replacement and Dm who presented with R hip pain after a mechanical fall. 1- R Femoral neck Fx: s/p R hip hemiarthroplasty - pain control . cont tylenol and oxycodone - PT - for fever : UA and cxray neg, NO DVT on US. snet blood cx - DVT PX 2- ALISIA: resume IVF 3-H/o DM : increase SSI dose and ass HS coverage . check A1c 4- HLP: statin therapy Dispo: for SNF when ready for dc pending resolution of fever and prelim blood cx
[2018-05-09] MEDS ORDERED: PT OWN MED DRAWER 7, Y5N ONE (21:14)
[2018-05-09] MEDS: ATORVASTATIN CA 20 MG TABLET (FP) PO SCH (21:16)
[2018-05-10] MEDS ORDERED: PT OWN MED DRAWER 7, Y5N ONE ×4 (06:20→21:37)
[2018-05-10] MEDS: INSULIN SLIDING SCALE (NOVOLOG) 1 VIAL SQ SCH ×4 (06:51→21:48)
[2018-05-10] MEDS: HEPARIN NA (PORCINE) 5,000 UNITS/ML 1ML VIAL SQ SCH ×3 (06:52→21:49)
[2018-05-10] MEDS: PRIMIDONE 250 MG TABLET PO SCH ×2 (06:52→21:49)
[2018-05-10 07:46] LABS: ANION GAP 8 MMOL/L (8-16); BLOOD UREA NITROGEN 30 mg/dL (7-18); CALCIUM 7.8 mg/dL (8.5-10.1); CHLORIDE 105 mmol/L (98-107); CO2 26 mmol/L (21-32); GLUCOSE,RANDOM 193 mg/dL (74-106); POTASSIUM 3.8 mmol/L (3.5-5.1); SODIUM 139 mmol/L (136-145)
[2018-05-10 07:49] LABS: CREATININE 1.3 mg/dL (0.7-1.3)
[2018-05-10 08:07] LABS: BASO % 0.6 % (0-2.0); EOS % 3.8 % (0-4.5); HEMATOCRIT 26.2 % (35.4-49); HEMOGLOBIN 8.6 GM/dL (11.7-16.9); LYMPH % 19.5 % (8-40); MCH 30.1 pg (25.7-33.7); MCHC 32.6 g/dl (32.0-35.9); MEAN CELL VOLUME 92.2 fl (80-96); MEAN PLT VOLUME 8.8 fl (7.5-11.1); MONO % 10.6 % (3.8-10.2); NEUT % 65.5 % (42.8-82.8); PLATELET COUNT 166 K/MM3 (134-434); RBC 2.85 M/mm3 (4.00-5.60); RDW 13.5 % (11.9-15.9); WHITE BLOOD COUNT 7.6 K/mm3 (4.0-10.0)
[2018-05-10] MEDS: ASPIRIN 325 MG TABLET PO SCH (09:38)
[2018-05-10] MEDS: TOPIRAMATE 25 MG TABLET (FP) PO SCH ×2 (09:38→21:49)
[2018-05-10] MEDS: COLCHICINE 0.6 MG TABLET (FP) PO SCH ×2 (09:39→21:50)
[2018-05-10] MEDS: POLYETHYLENE GLYCOL 3350 119 GM BTL PO SCH ×2 (09:39→21:52)
[2018-05-10] MEDS: oxyCODONE HCL 5 MG TABLET PO PRN (10:07)
[2018-05-10] MEDS ORDERED: BISACODYL 10 MG SUPP.RECT RC ONE (12:06)
--- NOTE | 2018-05-10 14:32 | CON.ID ---
Consult Consult Specialty:: infectious diseases Reason for Consultation:: fevers - History of Present Illness Chief Complaint: fall,rt hip pain History of Present Illness: 82 yo male with PMH NIDDM and essential tremor, presented to the ED s/p mechanical fall in the parking lot where he lives. patient was found to have a fracture of the right hip and was brought to the hospital patient was found to have hip fracture and was seen by ortho. patient was then taken to the OR and patient underwent rt hip replacement post op patient was dooing well and i was called to see the patient for ongoing fevers,which the patient has been having for last couple of days patient feels well and has no complaints he is spiking a fever once or twice and then he remains normal patient has no complaints and is very cheerful - History Source History Provided By: Patient Limitations to Obtaining History: No Limitations - Alcohol/Substance Use Hx Alcohol Use: No - Smoking History Smoking history: Never smoked Home Medications - Allergies Allergies/Adverse Reactions: Allergies Allergy/AdvReac Type Severity Reaction Status Date / Time indomethacin Allergy Verified 05/05/18 17:05 naproxen [From Naprosyn] Allergy Verified 05/05/18 17:05 Penicillins Allergy Verified 05/05/18 17:05 sulindac Allergy Verified 05/05/18 17:05 - Home Medications Home Medications: Ambulatory Orders Glipizide [Glipizide ER] 5 mg PO DAILY 05/05/18 Glipizide [Glipizide ER] 10 mg PO DAILY 05/05/18 Pioglitazone HCl [Actos] 30 mg PO DAILY 05/05/18 Primidone [Mysoline] 125 mg PO AM 05/05/18 RX: Colchicine 0.6 mg PO BID 05/05/18 RX: Primidone [Mysoline -] 250 mg PO HS 05/05/18 RX: Simvastatin 40 mg PO DAILY 05/05/18 RX: Topiramate 75 mg PO BID 05/05/18 Triamterene/Hydrochlorothiazid [Triamterene-Hctz 37.5-25 mg Cp] 1 tab PO DAILY 05/05/18 Review of Systems - Review of Systems Constitutional: reports: Fever Eyes: reports: No Symptoms HENT: reports: No Symptoms, Ocular Prosthesis Cardiovascular: reports: No Symptoms Respiratory: reports: No Symptoms Gastrointestinal: reports: No Symptoms Genitourinary: reports: No Symptoms Musculoskeletal: reports: Joint Pain (rt hip) Integumentary: reports: No Symptoms Neurological: reports: No Symptoms Endocrine: reports: No Symptoms Hematology/Lymphatic: reports: No Symptoms Psychiatric: reports: No Symptoms Physical Exam Vital Signs: Vital Signs Temperature 99.6 F 05/10/18 06:00 Pulse Rate 79 05/10/18 06:00 Respiratory Rate 20 05/10/18 06:00 Blood Pressure 116/58 05/10/18 06:00 O2 Sat by Pulse Oximetry (%) 98 05/08/18 21:00 Constitutional: Yes: Well Nourished, No Distress, Calm Eyes: Yes: Conjunctiva Clear Cardiovascular: Yes: Regular Rate and Rhythm Respiratory: Yes: Regular, Poor Air Entry (left side), Other Gastrointestinal: Yes: Normal Bowel Sounds, Soft Musculoskeletal: Yes: WNL Extremities: Yes: Other Integumentary: Yes: Other Wound/Incision: Yes: Dressing Dry and Intact Neurological: Yes: Alert, Oriented Psychiatric: Yes: Alert, Oriented Labs: CBC, BMP 05/10/18 06:00 Imaging - Results Chest X-ray: Report Reviewed, Image Reviewed Ultrasound: Report Reviewed, Image Reviewed Assessment/Plan spiking fevers ,after looking and examining the patient i do not see any overt infection in the patient patient is maintaining normal vitals and wbc. this could be due poor inspiratory effort but he has good air entry rt hip fracture dm hld fever plan will not start any abx at this time continue to monitor his fever watch for any signs of wound infection incentive yeni if he continues to ahve fever then will have to see next steps
[2018-05-10 14:36] LABS: HEMATOCRIT 26.6 % (35.4-49); HEMOGLOBIN 8.7 GM/dL (11.7-16.9); MCH 30.5 pg (25.7-33.7); MCHC 32.9 g/dl (32.0-35.9); MEAN CELL VOLUME 92.6 fl (80-96); MEAN PLT VOLUME 8.9 fl (7.5-11.1); PLATELET COUNT 206 K/MM3 (134-434); RBC 2.87 M/mm3 (4.00-5.60); RDW 13.4 % (11.9-15.9); WHITE BLOOD COUNT 6.6 K/mm3 (4.0-10.0)
--- NOTE | 2018-05-10 15:26 | PN ---
Physical Exam: SUBJECTIVE: Patient seen and examined at bedside. Fever to 101.5 yesterday, pain controlled. Complains of constipation x 1 week. Denies n/v, cp, sob. OBJECTIVE: Vital Signs Period Temp Pulse Resp BP Sys/Hill Pulse Ox Last 24 Hr 98.2 F-101.5 F 79-102 20-20 116-143/58-84 GENERAL: A&Ox3, NAD HEAD: NC/AT EYES: PERRLA, EOMI, no scleral icterus EARS, NOSE, THROAT: oropharynx clear without exudates. Moist mucous membranes. NECK: supple without lymphadenopathy LUNGS: CTA b/l, no crackles or wheezes HEART: Regular rate and rhythm, S1S2, mild systolic murmur at right sternal border ABDOMEN: Soft, NT/ND, normoactive bowel sounds MUSCULOSKELETAL: Right hip pain with movement, minimal pain on palpation, right leg externally rotated. No sacral ulcer. UPPER EXTREMITIES: 2+ pulses, warm, well-perfused. No cyanosis. No clubbing. No peripheral edema. LOWER EXTREMITIES: 2+ pulses, warm, well-perfused. No calf tenderness. No peripheral edema. Surgical dressing on R hip c/d/i with no drainage or bleeding NEUROLOGICAL: CN II-XII grossly intact. Normal speech. 5/5 strength x RUE, LUE , LLE; RLE exam limited due to pain. PSYCHIATRIC: Cooperative. Good eye contact. Appropriate mood and affect. Slightly confused. SKIN: Warm, dry, normal turgor, no rashes or lesions noted Laboratory Results - last 24 hr 05/09/18 05/09/18 05/09/18 07:00 16:40 21:07 WBC RBC Hgb Hct MCV MCH MCHC RDW Plt Count MPV Absolute Neuts (auto) Neutrophils % Lymphocytes % Monocytes % Eosinophils % Basophils % Nucleated RBC % Sodium Potassium Chloride Carbon Dioxide Anion Gap BUN Creatinine Creat Clearance w eGFR POC Glucometer 277 280 Random Glucose Hemoglobin A1c % 7.5 H D Calcium 05/10/18 05/10/18 05/10/18 06:00 06:00 06:49 WBC 7.6 RBC 2.85 L Hgb 8.6 L Hct 26.2 L D MCV 92.2 MCH 30.1 MCHC 32.6 RDW 13.5 Plt Count 166 MPV 8.8 Absolute Neuts (auto) 5.0 Neutrophils % 65.5 Lymphocytes % 19.5 D Monocytes % 10.6 H Eosinophils % 3.8 D Basophils % 0.6 Nucleated RBC % 0 Sodium 139 Potassium 3.8 Chloride 105 Carbon Dioxide 26 Anion Gap 8 BUN 30 H Creatinine 1.3 Creat Clearance w eGFR 52.85 POC Glucometer 202 Random Glucose 193 H Hemoglobin A1c % Calcium 7.8 L 05/10/18 05/10/18 11:57 14:20 WBC 6.6 RBC 2.87 L Hgb 8.7 L Hct 26.6 L MCV 92.6 MCH 30.5 MCHC 32.9 RDW 13.4 Plt Count 206 D MPV 8.9 Absolute Neuts (auto) Neutrophils % Lymphocytes % Monocytes % Eosinophils % Basophils % Nucleated RBC % Sodium Potassium Chloride Carbon Dioxide Anion Gap BUN Creatinine Creat Clearance w eGFR POC Glucometer 237 Random Glucose Hemoglobin A1c % Calcium Active Medications Generic Name Dose Route Start Last Admin Trade Name Freq PRN Reason Stop Dose Admin Acetaminophen 650 mg 05/08/18 22:37 05/09/18 21:15 Tylenol - PO 650 mg Q6H PRN Administration PAIN OR FEVER Aspirin 325 mg 05/07/18 08:00 05/10/18 09:38 Asa - PO 325 mg DAILY@0800 DAYAMI Administration Atorvastatin Calcium 20 mg 05/06/18 22:00 05/09/18 21:16 Lipitor - PO 20 mg HS DAYAMI Administration Colchicine 0.6 mg 05/06/18 22:00 05/10/18 09:39 Colcrys - PO 0.6 mg BID DAYAMI Administration Docusate Sodium 100 mg 05/07/18 17:00 05/08/18 22:03 Colace - PO 100 mg Q12H PRN Administration CONSTIPATION Heparin Sodium (Porcine) 5,000 unit 05/07/18 08:00 05/10/18 14:57 Heparin - SQ 5,000 unit TID DAYAMI Administration Sodium Chloride 1,000 mls @ 75 mls/hr 05/09/18 14:00 05/09/18 14:23 Normal Saline - IV 75 mls/hr ASDIR DAYAMI Administration Insulin Aspart 1 vial 05/09/18 22:00 05/10/18 11:58 Novolog Vial Sliding Scale - SQ 4 units ACHS DAYAMI Administration Protocol Oxycodone HCl 5 mg 05/07/18 16:59 05/10/18 10:07 Roxicodone - PO 5 mg Q4H PRN Administration PAIN LEVEL 4 - 6 Polyethylene Glycol 17 gm 05/10/18 22:00 Miralax (For Daily Use) - PO BID DAYAMI Primidone 125 mg 05/07/18 07:00 05/10/18 06:52 Mysoline - PO 125 mg AM DAYAMI Administration Primidone 250 mg 05/06/18 22:00 05/09/18 21:16 Mysoline - PO 250 mg HS DAYAMI Administration Senna 2 tab 05/09/18 11:41 Senna - PO HS PRN CONSTIPATION Topiramate 75 mg 05/06/18 22:00 05/10/18 09:38 Topamax - PO 75 mg BID DAYAMI Administration ASSESSMENT/PLAN: 82 y/o M w/ PMHx NIDDM, essential tremor admitted 2/2 R hip fx, s/p R hip marion, POD #4. #Right Hip Fracture; s/p R hip marion, POD #4. - spiking intermittent fevers, 101.5 yesterday - BCx and UCx sent - oxycodone 2 mg IV Q4 for pain - ID consulted (Dr. Bryant) - d/c will be to SNF, SW is on board and facility placement ready #anemia - Hgb fell to 8.6 from 10.4 yesterday, afternoon repeat Hgb 8.7 - constipation may be concealing LGIB - requesting re-evaluation by Dr. Goems for bleeding at surgical site - FOBT pending #constipation - no BM x 7 days - miralax BID - bisacodyl suppository #NIDDM - repeat HbA1c = 7.5 - BGMs - ISS - hold home meds #Essential Tremor - Topiramate 25 mg PO QD - Primidone 250 mg 1/2 tab qAM and 1 tab qHS #HLD - Atorvastatin 20 mg PO HS #ALISIA - Cr 1.4 --> 1.1 --> 1.3 --> 1.4 - NS @ 75 - encourage oral hydration #hx of gout -colchicine 0.6 mg BID #DVT Prophylaxis - Heparin 5000U SQ TID #FEN - Fluids: NS @ 75 cc/hr - Electrolytes: No electrolyte abnormalities, BMP in AM - Nutrition: Diabetic diet #Dispo - Med/Surg - SNF after d/c, SW is on board and facility placement ready Visit type - Emergency Visit Emergency Visit: No - New Patient This patient is new to me today: No - Critical Care Critical Care patient: No
--- NOTE | 2018-05-10 16:20 | PN ---
Progress Note (short form) - Note Progress Note: AFEBRILE, VSS COMFORTABLE BANDAGES DRY AND INTACT CALF SOFT AND NT NVI IMP: DOING WELL PLAN: DC TO SNF WHEN MEDICALLY OK FOR PT
--- NOTE | 2018-05-10 18:05 | PN ---
Teaching Attending Note Name of Resident: Teodoro Dixon ATTENDING PHYSICIAN STATEMENT I saw and evaluated the patient. I reviewed the resident's note and discussed the case with the resident. I agree with the resident's findings and plan as documented. SUBJECTIVE: last fever 10 pm . No cogh , pain is manageable. OBJECTIVE: NAD. MMM Cv: RRR, 2/6 SM at RUSB. Lungs: CTAB Ext: R hip tenderness, surgical dressing on R lateral hip. DP 2+ DP 2+ b/l. ASSESSMENT AND PLAN: 82 y/o man with h/o essential tremor, hyperlipidemia, possible gout, bilateral total knee replacement and Dm who presented with R hip pain after a mechanical fall. 1- R Femoral neck Fx: s/p R hip hemiarthroplasty - cont tylenol and oxycodone. - PT - for fever : no evidence of infection so far. follow blood cx . ID consult - DVT PX 2- ALISIA: cont IVF 3-H/o DM: cont SSI A1c 7.5 4- HLP: statin therapy Dispo: for SNF when ready for dc pending resolution of fever and blood cx. hopefully tomorrow
[2018-05-10] MEDS: SODIUM CHLORIDE 1,000 ML IV SCH (18:22)
[2018-05-10] MEDS ORDERED: INSULIN (NOVOLOG) ASPART 100 UNITS/ML 10ML VIAL ONE (21:38)
[2018-05-10] MEDS: ACETAMINOPHEN 325 MG TABLET (FP) PO PRN (21:47)
[2018-05-10] MEDS: SENNOSIDES 8.6MG TABLET (FP) PO PRN (21:48)
[2018-05-10] MEDS: ATORVASTATIN CA 20 MG TABLET (FP) PO SCH (21:50)
[2018-05-11] MEDS: HEPARIN NA (PORCINE) 5,000 UNITS/ML 1ML VIAL SQ SCH ×3 (06:10→23:11)
[2018-05-11] MEDS: INSULIN SLIDING SCALE (NOVOLOG) 1 VIAL SQ SCH ×4 (06:10→23:11)
[2018-05-11] MEDS: PRIMIDONE 250 MG TABLET PO SCH ×2 (06:10→23:10)
[2018-05-11 07:52] LABS: BASO % 0.6 % (0-2.0); EOS % 6.4 % (0-4.5); HEMATOCRIT 23.1 % (35.4-49); HEMOGLOBIN 7.7 GM/dL (11.7-16.9); LYMPH % 20.2 % (8-40); MCH 30.3 pg (25.7-33.7); MCHC 33.2 g/dl (32.0-35.9); MEAN CELL VOLUME 91.2 fl (80-96); MEAN PLT VOLUME 8.9 fl (7.5-11.1); MONO % 7.6 % (3.8-10.2); NEUT % 65.2 % (42.8-82.8); PLATELET COUNT 187 K/MM3 (134-434); RBC 2.54 M/mm3 (4.00-5.60); RDW 13.3 % (11.9-15.9); WHITE BLOOD COUNT 6.8 K/mm3 (4.0-10.0)
[2018-05-11] MEDS: ASPIRIN 325 MG TABLET PO SCH (08:24)
[2018-05-11 08:40] LABS: ANION GAP 11 MMOL/L (8-16); BLOOD UREA NITROGEN 30 mg/dL (7-18); CALCIUM 7.8 mg/dL (8.5-10.1); CHLORIDE 106 mmol/L (98-107); CO2 23 mmol/L (21-32); CREATININE 1.1 mg/dL (0.7-1.3); GLUCOSE,RANDOM 239 mg/dL (74-106); POTASSIUM 3.7 mmol/L (3.5-5.1); SODIUM 140 mmol/L (136-145)
--- NOTE | 2018-05-11 09:05 | PN ---
Teaching Attending Note Name of Resident: Teodoro Dixon ATTENDING PHYSICIAN STATEMENT I saw and evaluated the patient. I reviewed the resident's note and discussed the case with the resident. I agree with the resident's findings and plan as documented. SUBJECTIVE: Patient is comfortable with no acute distress, no shortness of breath. nO headache , no nausea or vomiting. OBJECTIVE: Vital Signs Temperature 99.6 F 05/11/18 07:44 Pulse Rate 81 05/11/18 07:44 Respiratory Rate 20 05/11/18 07:44 Blood Pressure 108/53 05/11/18 07:44 O2 Sat by Pulse Oximetry (%) 98 05/08/18 21:00 CBCD WBC 6.8 K/mm3 (4.0-10.0) 05/11/18 06:30 RBC 2.54 M/mm3 (4.00-5.60) L 05/11/18 06:30 Hgb 7.7 GM/dL (11.7-16.9) L 05/11/18 06:30 Hct 23.1 % (35.4-49) L 05/11/18 06:30 MCV 91.2 fl (80-96) 05/11/18 06:30 MCHC 33.2 g/dl (32.0-35.9) 05/11/18 06:30 RDW 13.3 % (11.9-15.9) 05/11/18 06:30 Plt Count 187 K/MM3 (134-434) 05/11/18 06:30 MPV 8.9 fl (7.5-11.1) 05/11/18 06:30 CMP Sodium 140 mmol/L (136-145) 05/11/18 06:30 Potassium 3.7 mmol/L (3.5-5.1) 05/11/18 06:30 Chloride 106 mmol/L (98-107) 05/11/18 06:30 Carbon Dioxide 23 mmol/L (21-32) 05/11/18 06:30 Anion Gap 11 MMOL/L (8-16) 05/11/18 06:30 BUN 30 mg/dL (7-18) H 05/11/18 06:30 Creatinine 1.1 mg/dL (0.7-1.3) 05/11/18 06:30 Creat Clearance w eGFR > 60 (>60) 05/11/18 06:30 Random Glucose 239 mg/dL (74-106) H D 05/11/18 06:30 Calcium 7.8 mg/dL (8.5-10.1) L 05/11/18 06:30 Total Bilirubin 0.2 mg/dL (0.2-1.0) 05/05/18 18:55 AST 21 U/L (15-37) 05/05/18 18:55 ALT 28 U/L (12-78) 05/05/18 18:55 Alkaline Phosphatase 66 U/L (45-117) 05/05/18 18:55 Total Protein 7.5 g/dl (6.4-8.2) 05/05/18 18:55 Albumin 3.9 g/dl (3.4-5.0) 05/05/18 18:55 CARDIAC ENZYMES Creatine Kinase 146 IU/L (39-308) 05/06/18 07:15 Current Medications Generic Name Dose Route Start Last Admin Trade Name Freq PRN Reason Stop Dose Admin Acetaminophen 650 mg 05/08/18 22:37 05/10/18 21:47 Tylenol - PO 650 mg Q6H PRN Administration PAIN OR FEVER Aspirin 325 mg 05/07/18 08:00 05/11/18 08:24 Asa - PO 325 mg DAILY@0800 DAYAMI Administration Atorvastatin Calcium 20 mg 05/06/18 22:00 05/10/18 21:50 Lipitor - PO 20 mg HS DAYAMI Administration Colchicine 0.6 mg 05/06/18 22:00 05/10/18 21:50 Colcrys - PO 0.6 mg BID DAYAMI Administration Docusate Sodium 100 mg 05/07/18 17:00 05/08/18 22:03 Colace - PO 100 mg Q12H PRN Administration CONSTIPATION Heparin Sodium (Porcine) 5,000 unit 05/07/18 08:00 05/11/18 06:10 Heparin - SQ 5,000 unit TID DAYAMI Administration Sodium Chloride 1,000 mls @ 75 mls/hr 05/09/18 14:00 05/10/18 18:22 Normal Saline - IV 75 mls/hr ASDIR DAYAMI Administration Insulin Aspart 1 vial 05/09/18 22:00 05/11/18 06:10 Novolog Vial Sliding Scale - SQ 6 units ACHS DAYAMI Administration Protocol Polyethylene Glycol 17 gm 05/10/18 22:00 05/10/18 21:52 Miralax (For Daily Use) - PO 17 grams BID DAYAMI Administration Primidone 125 mg 05/07/18 07:00 05/11/18 06:10 Mysoline - PO 125 mg AM DAYAMI Administration Primidone 250 mg 05/06/18 22:00 05/10/18 21:49 Mysoline - PO 250 mg HS DAYAMI Administration Senna 2 tab 05/09/18 11:41 05/10/18 21:48 Senna - PO 2 tab HS PRN Administration CONSTIPATION Topiramate 75 mg 05/06/18 22:00 05/10/18 21:49 Topamax - PO 75 mg BID DAYAMI Administration Home Medications Medication Instructions Recorded Colchicine 0.6 mg PO BID 05/05/18 Glipizide [Glipizide ER] 5 mg PO DAILY 05/05/18 Glipizide [Glipizide ER] 10 mg PO DAILY 05/05/18 Pioglitazone HCl [Actos] 30 mg PO DAILY 05/05/18 Primidone [Mysoline -] 250 mg PO HS 05/05/18 Primidone [Mysoline] 125 mg PO AM 05/05/18 Simvastatin 40 mg PO DAILY 05/05/18 Topiramate 75 mg PO BID 05/05/18 Triamterene/Hydrochlorothiazid 1 tab PO DAILY 05/05/18 [Triamterene-Hctz 37.5-25 mg Cp] Microbiology 05/09/18 12:25 Blood - Peripheral Venous Blood Culture - Preliminary NO GROWTH OBTAINED AFTER 24 HOURS, INCUBATION TO CONTINUE FOR 4 DAYS. 05/09/18 12:40 Blood - Peripheral Venous Blood Culture - Preliminary NO GROWTH OBTAINED AFTER 24 HOURS, INCUBATION TO CONTINUE FOR 4 DAYS. PE: per resident's note ASSESSMENT AND PLAN: 82 y/o man with h/o essential tremor, hyperlipidemia, possible gout, bilateral total knee replacement and Dm who presented with R hip pain after a mechanical fall. # Acute Right Femoral neck Fx: s/p R hip hemiarthroplasty continue pain control with tylenol and oxycodone. PT evaluation # Anemia will monitor , Iron studies to evaluate the patient. # ALISIA: improving 1.4-->1.0 now s/p IVF # Essential Tremor: On Mysoline continue #H/o DM: cont SSI , hGA1c 7.5 , will place him back to his home meds. Glipizide and Actos # HLP: statin therapy continue with Lipitor # Hx of Gout on colchicine continue Dispo: for SNF when ready medically DVT PX: Heparin sq
--- NOTE | 2018-05-11 09:14 | PN ---
Progress Note (short form) - Note Progress Note: AFEBRILE NOW. WAS 102 AT 10PM BUT AFEBRILE THE REST OF THE DAY. WBC WNL BANDAGES DRY AND INTACT CALF SOFT AND NT NVI IMP: DOING WELL PLAN: DC TO SNF IDF CLEARED BY MEDICINE
[2018-05-11] MEDS: TOPIRAMATE 25 MG TABLET (FP) PO SCH ×2 (10:18→23:11)
[2018-05-11] MEDS: COLCHICINE 0.6 MG TABLET (FP) PO SCH ×2 (10:18→23:10)
[2018-05-11] MEDS: POLYETHYLENE GLYCOL 3350 119 GM BTL PO SCH ×2 (10:19→23:11)
[2018-05-11] MEDS ORDERED: INSULIN (NOVOLOG) ASPART 100 UNITS/ML 10ML VIAL ONE (11:11)
--- NOTE | 2018-05-11 12:49 | PN ---
Physical Exam: SUBJECTIVE: Patient seen and examined at bedside. Fever to 102 last night. Pain controlled. First BM in 8 days this morning, Pt did not examine for blood. Denies n/v, cp, sob. OBJECTIVE: Vital Signs Period Temp Pulse Resp BP Sys/Hill Pulse Ox Last 24 Hr 98.2 F-102 F 81-102 20-20 105-143/53-84 GENERAL: A&Ox3, NAD HEAD: NC/AT EYES: PERRLA, EOMI, no scleral icterus EARS, NOSE, THROAT: oropharynx clear without exudates. Moist mucous membranes. NECK: supple without lymphadenopathy LUNGS: CTA b/l, no crackles or wheezes HEART: Regular rate and rhythm, S1S2, mild systolic murmur at right sternal border ABDOMEN: Soft, NT/ND, normoactive bowel sounds MUSCULOSKELETAL: Right hip pain with movement, minimal pain on palpation, right leg externally rotated. No sacral ulcer. UPPER EXTREMITIES: 2+ pulses, warm, well-perfused. No cyanosis. No clubbing. No peripheral edema. LOWER EXTREMITIES: 2+ pulses, warm, well-perfused. No calf tenderness. No peripheral edema. Surgical dressing on R hip c/d/i with no drainage or bleeding NEUROLOGICAL: CN II-XII grossly intact. Normal speech. 5/5 strength x RUE, LUE , LLE; RLE exam limited due to pain. PSYCHIATRIC: Cooperative. Good eye contact. Appropriate mood and affect. Slightly confused. SKIN: Warm, dry, normal turgor, no rashes or lesions noted Laboratory Results - last 24 hr 05/10/18 05/10/18 05/10/18 14:20 17:15 21:42 WBC 6.6 RBC 2.87 L Hgb 8.7 L Hct 26.6 L MCV 92.6 MCH 30.5 MCHC 32.9 RDW 13.4 Plt Count 206 D MPV 8.9 Absolute Neuts (auto) Neutrophils % Lymphocytes % Monocytes % Eosinophils % Basophils % Nucleated RBC % Sodium Potassium Chloride Carbon Dioxide Anion Gap BUN Creatinine Creat Clearance w eGFR POC Glucometer 251 345 Random Glucose Calcium 05/11/18 05/11/18 05/11/18 05:52 06:30 06:30 WBC 6.8 RBC 2.54 L Hgb 7.7 L Hct 23.1 L MCV 91.2 MCH 30.3 MCHC 33.2 RDW 13.3 Plt Count 187 MPV 8.9 Absolute Neuts (auto) 4.5 Neutrophils % 65.2 Lymphocytes % 20.2 Monocytes % 7.6 Eosinophils % 6.4 H Basophils % 0.6 Nucleated RBC % 0 Sodium 140 Potassium 3.7 Chloride 106 Carbon Dioxide 23 Anion Gap 11 BUN 30 H Creatinine 1.1 Creat Clearance w eGFR > 60 POC Glucometer 289 Random Glucose 239 H D Calcium 7.8 L 05/11/18 11:23 WBC RBC Hgb Hct MCV MCH MCHC RDW Plt Count MPV Absolute Neuts (auto) Neutrophils % Lymphocytes % Monocytes % Eosinophils % Basophils % Nucleated RBC % Sodium Potassium Chloride Carbon Dioxide Anion Gap BUN Creatinine Creat Clearance w eGFR POC Glucometer 226 Random Glucose Calcium Active Medications Generic Name Dose Route Start Last Admin Trade Name Freq PRN Reason Stop Dose Admin Acetaminophen 650 mg 05/08/18 22:37 05/10/18 21:47 Tylenol - PO 650 mg Q6H PRN Administration PAIN OR FEVER Aspirin 325 mg 05/07/18 08:00 05/11/18 08:24 Asa - PO 325 mg DAILY@0800 DAYAMI Administration Atorvastatin Calcium 20 mg 05/06/18 22:00 05/10/18 21:50 Lipitor - PO 20 mg HS DAYAMI Administration Colchicine 0.6 mg 05/06/18 22:00 05/11/18 10:18 Colcrys - PO 0.6 mg BID DAYAMI Administration Docusate Sodium 100 mg 05/07/18 17:00 05/08/18 22:03 Colace - PO 100 mg Q12H PRN Administration CONSTIPATION Heparin Sodium (Porcine) 5,000 unit 05/07/18 08:00 05/11/18 06:10 Heparin - SQ 5,000 unit TID DAYAMI Administration Sodium Chloride 1,000 mls @ 75 mls/hr 05/09/18 14:00 05/10/18 18:22 Normal Saline - IV 75 mls/hr ASDIR DAYAMI Administration Insulin Aspart 1 vial 05/09/18 22:00 05/11/18 11:23 Novolog Vial Sliding Scale - SQ 4 units ACHS DAYAMI Administration Protocol Oxycodone HCl 5 mg 05/11/18 11:49 Roxicodone - PO Q4H PRN PAIN LEVEL 4 - 6 Polyethylene Glycol 17 gm 05/10/18 22:00 05/11/18 10:19 Miralax (For Daily Use) - PO Not Given BID DAYAMI Primidone 125 mg 05/07/18 07:00 05/11/18 06:10 Mysoline - PO 125 mg AM DAYAMI Administration Primidone 250 mg 05/06/18 22:00 05/10/18 21:49 Mysoline - PO 250 mg HS DAYAMI Administration Senna 2 tab 05/09/18 11:41 05/10/18 21:48 Senna - PO 2 tab HS PRN Administration CONSTIPATION Topiramate 75 mg 05/06/18 22:00 05/11/18 10:18 Topamax - PO 75 mg BID DAYAMI Administration ASSESSMENT/PLAN: 82 y/o M w/ PMHx NIDDM, essential tremor admitted 2/2 R hip fx, s/p R hip marion, POD #4. #Right Hip Fracture; s/p R hip marion, POD #5. - spiking intermittent fevers, 102 yesterday - No growth yet on BCx - oxycodone 5 mg PO Q4 for pain - ID consulted (Dr. Bryant) - UCx re-sent and R hip radiograph per Dr. Bryant - d/c will be to SNF, SW is on board and facility placement ready #anemia - Hgb fell to 7.7, afternoon repeat pending, transfuse if <7 - constipation may be concealing LGIB - no intervention from orthopedics - FOBT pending #constipation - 1st BM in 8 days this morning - miralax BID #NIDDM - repeat HbA1c = 7.5 - BGMs - ISS - hold home meds #Essential Tremor - Topiramate 25 mg PO QD - Primidone 250 mg 1/2 tab qAM and 1 tab qHS #HLD - Atorvastatin 20 mg PO HS #ALISIA - Cr 1.1, stable/resolved - NS @ 75 - encourage oral hydration #hx of gout -colchicine 0.6 mg BID #DVT Prophylaxis - Heparin 5000U SQ TID #FEN - Fluids: NS @ 75 cc/hr - Electrolytes: No electrolyte abnormalities, BMP in AM - Nutrition: Diabetic diet #Dispo - Med/Surg - SNF after d/c, SW is on board and facility placement ready Visit type - Emergency Visit Emergency Visit: No - New Patient This patient is new to me today: No - Critical Care Critical Care patient: No
[2018-05-11] MEDS: oxyCODONE HCL 5 MG TABLET PO PRN (13:04)
[2018-05-11] MEDS: ACETAMINOPHEN 325 MG TABLET (FP) PO PRN ×2 (13:05→23:10)
--- NOTE | 2018-05-11 14:07 | PN ---
Progress Note, Physician History of Present Illness: patient spiked fever again clinically looks very stable still no specific cause why patient is spiking no issues - Current Medication List Current Medications: Active Medications Acetaminophen (Tylenol -) 650 mg PO Q6H PRN PRN Reason: PAIN OR FEVER Last Admin: 05/11/18 13:05 Dose: 650 mg Aspirin (Asa -) 325 mg PO DAILY@0800 [facility] Last Admin: 05/11/18 08:24 Dose: 325 mg Atorvastatin Calcium (Lipitor -) 20 mg PO HS [facility] Last Admin: 05/10/18 21:50 Dose: 20 mg Colchicine (Colcrys -) 0.6 mg PO BID [facility] Last Admin: 05/11/18 10:18 Dose: 0.6 mg Docusate Sodium (Colace -) 100 mg PO Q12H PRN PRN Reason: CONSTIPATION Last Admin: 05/08/18 22:03 Dose: 100 mg Heparin Sodium (Porcine) (Heparin -) 5,000 unit SQ TID [facility] Last Admin: 05/11/18 06:10 Dose: 5,000 unit Sodium Chloride (Normal Saline -) 1,000 mls @ 75 mls/hr IV ASDIR [facility] Last Admin: 05/10/18 18:22 Dose: 75 mls/hr Insulin Aspart (Novolog Vial Sliding Scale -) 1 vial SQ ACHS [facility]; Protocol Last Admin: 05/11/18 11:23 Dose: 4 units Oxycodone HCl (Roxicodone -) 5 mg PO Q4H PRN PRN Reason: PAIN LEVEL 4 - 6 Last Admin: 05/11/18 13:04 Dose: 5 mg Polyethylene Glycol (Miralax (For Daily Use) -) 17 gm PO BID [facility] Last Admin: 05/11/18 10:19 Dose: Not Given Primidone (Mysoline -) 125 mg PO AM [facility] Last Admin: 05/11/18 06:10 Dose: 125 mg Primidone (Mysoline -) 250 mg PO HS [facility] Last Admin: 05/10/18 21:49 Dose: 250 mg Senna (Senna -) 2 tab PO HS PRN PRN Reason: CONSTIPATION Last Admin: 05/10/18 21:48 Dose: 2 tab Topiramate (Topamax -) 75 mg PO BID [facility] Last Admin: 05/11/18 10:18 Dose: 75 mg - Objective Vital Signs: Vital Signs Temperature 98.8 F 05/11/18 09:00 Pulse Rate 52 L 05/11/18 09:00 Respiratory Rate 20 05/11/18 09:00 Blood Pressure 106/57 05/11/18 09:00 O2 Sat by Pulse Oximetry (%) 96 05/11/18 09:00 Constitutional: Yes: No Distress, Calm Cardiovascular: Yes: Regular Rate and Rhythm Respiratory: Yes: Regular, CTA Bilaterally Gastrointestinal: Yes: Normal Bowel Sounds, Soft Musculoskeletal: Yes: WNL Extremities: Yes: Other Wound/Incision: Yes: Dressing Dry and Intact Neurological: Yes: Alert, Oriented Psychiatric: Yes: Alert, Oriented Labs: CBC, BMP 05/11/18 06:30 05/11/18 06:30 INR, PTT INR 1.04 (0.83-1.09) 05/05/18 19:31 - ....Imaging Chest X-ray: Report Reviewed, Image Reviewed Assessment/Plan patient still spiking clinically no evidence signs of infection 82F with PMH NIDDM and essential tremor admitted to Med/Surg following Right hip fx, s/p R hip marion, POD #1. rt hip fracture dm hld fever plan i think we should do urine on the patient and also imaging study of the operated hip continue incentive yeni rest as per the team will not start any abx at this time patient needs to be afebrile
[2018-05-11] MEDS: SODIUM CHLORIDE 1,000 ML IV SCH (16:32)
[2018-05-11 17:10] LABS: BASO % 0.4 % (0-2.0); EOS % 7.8 % (0-4.5); HEMATOCRIT 23.3 % (35.4-49); HEMOGLOBIN 7.9 GM/dL (11.7-16.9); LYMPH % 15.6 % (8-40); MCH 30.9 pg (25.7-33.7); MCHC 33.7 g/dl (32.0-35.9); MEAN CELL VOLUME 91.7 fl (80-96); MEAN PLT VOLUME 9.1 fl (7.5-11.1); MONO % 9.8 % (3.8-10.2); NEUT % 66.4 % (42.8-82.8); PLATELET COUNT 198 K/MM3 (134-434); RBC 2.54 M/mm3 (4.00-5.60); RDW 13.4 % (11.9-15.9); WHITE BLOOD COUNT 6.4 K/mm3 (4.0-10.0)
[2018-05-11] MEDS ORDERED: PT OWN MED DRAWER 7, Y5N ONE (21:10)
[2018-05-11] MEDS: DOCUSATE SODIUM 100 MG CAPSULE (FP) PO PRN (23:10)
[2018-05-11] MEDS: SENNOSIDES 8.6MG TABLET (FP) PO PRN (23:10)
[2018-05-11] MEDS: ATORVASTATIN CA 20 MG TABLET (FP) PO SCH (23:11)
[2018-05-12] MEDS ORDERED: PT OWN MED DRAWER 7, Y5N ONE ×2 (06:34→21:51)
[2018-05-12] MEDS: PRIMIDONE 250 MG TABLET PO SCH ×2 (06:53→22:27)
[2018-05-12] MEDS: HEPARIN NA (PORCINE) 5,000 UNITS/ML 1ML VIAL SQ SCH ×3 (06:53→22:25)
[2018-05-12] MEDS: SODIUM CHLORIDE 1,000 ML IV SCH (06:53)
[2018-05-12] MEDS: INSULIN SLIDING SCALE (NOVOLOG) 1 VIAL SQ SCH ×4 (06:59→22:34)
[2018-05-12 07:22] LABS: BASO % 0.3 % (0-2.0); EOS % 7.6 % (0-4.5); HEMATOCRIT 24.6 % (35.4-49); HEMOGLOBIN 8.1 GM/dL (11.7-16.9); LYMPH % 11.4 % (8-40); MCH 30.2 pg (25.7-33.7); MCHC 32.9 g/dl (32.0-35.9); MEAN CELL VOLUME 91.8 fl (80-96); MEAN PLT VOLUME 8.8 fl (7.5-11.1); MONO % 8.5 % (3.8-10.2); NEUT % 72.2 % (42.8-82.8); PLATELET COUNT 221 K/MM3 (134-434); RBC 2.68 M/mm3 (4.00-5.60); RDW 13.6 % (11.9-15.9); WHITE BLOOD COUNT 8.6 K/mm3 (4.0-10.0)
[2018-05-12] MEDS: ASPIRIN 325 MG TABLET PO SCH (08:00)
[2018-05-12 08:21] LABS: CHLORIDE 109 mmol/L (98-107); POTASSIUM 4.6 mmol/L (3.5-5.1); SODIUM 139 mmol/L (136-145)
--- NOTE | 2018-05-12 08:27 | PN ---
Teaching Attending Note Name of Resident: Teodoro Dixon ATTENDING PHYSICIAN STATEMENT I saw and evaluated the patient. I reviewed the resident's note and discussed the case with the resident. I agree with the resident's findings and plan as documented. SUBJECTIVE: Patient is feeling better today. No further fever noted. all the w/u is negative so far. OBJECTIVE: Vital Signs Temperature 99.9 F H 05/12/18 05:00 Pulse Rate 78 05/12/18 05:00 Respiratory Rate 20 05/12/18 05:00 Blood Pressure 100/44 05/12/18 05:00 O2 Sat by Pulse Oximetry (%) 96 05/11/18 21:00 CBCD WBC 8.6 K/mm3 (4.0-10.0) 05/12/18 06:30 RBC 2.68 M/mm3 (4.00-5.60) L 05/12/18 06:30 Hgb 8.1 GM/dL (11.7-16.9) L 05/12/18 06:30 Hct 24.6 % (35.4-49) L 05/12/18 06:30 MCV 91.8 fl (80-96) 05/12/18 06:30 MCHC 32.9 g/dl (32.0-35.9) 05/12/18 06:30 RDW 13.6 % (11.9-15.9) 05/12/18 06:30 Plt Count 221 K/MM3 (134-434) 05/12/18 06:30 MPV 8.8 fl (7.5-11.1) 05/12/18 06:30 CMP Sodium 140 mmol/L (136-145) 05/11/18 06:30 Potassium 3.7 mmol/L (3.5-5.1) 05/11/18 06:30 Chloride 106 mmol/L (98-107) 05/11/18 06:30 Carbon Dioxide 23 mmol/L (21-32) 05/11/18 06:30 Anion Gap 11 MMOL/L (8-16) 05/11/18 06:30 BUN 30 mg/dL (7-18) H 05/11/18 06:30 Creatinine 1.1 mg/dL (0.7-1.3) 05/11/18 06:30 Creat Clearance w eGFR > 60 (>60) 05/11/18 06:30 Random Glucose 239 mg/dL (74-106) H D 05/11/18 06:30 Calcium 7.8 mg/dL (8.5-10.1) L 05/11/18 06:30 Total Bilirubin 0.2 mg/dL (0.2-1.0) 05/05/18 18:55 AST 21 U/L (15-37) 05/05/18 18:55 ALT 28 U/L (12-78) 05/05/18 18:55 Alkaline Phosphatase 66 U/L (45-117) 05/05/18 18:55 Total Protein 7.5 g/dl (6.4-8.2) 05/05/18 18:55 Albumin 3.9 g/dl (3.4-5.0) 05/05/18 18:55 CARDIAC ENZYMES Creatine Kinase 146 IU/L (39-308) 05/06/18 07:15 Current Medications Generic Name Dose Route Start Last Admin Trade Name Freq PRN Reason Stop Dose Admin Acetaminophen 650 mg 05/08/18 22:37 05/11/18 23:10 Tylenol - PO 650 mg Q6H PRN Administration PAIN OR FEVER Aspirin 325 mg 05/07/18 08:00 05/11/18 08:24 Asa - PO 325 mg DAILY@0800 DAYAMI Administration Atorvastatin Calcium 20 mg 05/06/18 22:00 05/11/18 23:11 Lipitor - PO 20 mg HS DAYAMI Administration Colchicine 0.6 mg 05/06/18 22:00 05/11/18 23:10 Colcrys - PO 0.6 mg BID DAYAMI Administration Docusate Sodium 100 mg 05/07/18 17:00 05/11/18 23:10 Colace - PO 100 mg Q12H PRN Administration CONSTIPATION Heparin Sodium (Porcine) 5,000 unit 05/07/18 08:00 05/12/18 06:53 Heparin - SQ 5,000 unit TID DAYAMI Administration Sodium Chloride 1,000 mls @ 75 mls/hr 05/09/18 14:00 05/12/18 06:53 Normal Saline - IV 75 mls/hr ASDIR DAYAMI Administration Insulin Aspart 1 vial 05/09/18 22:00 05/12/18 06:59 Novolog Vial Sliding Scale - SQ 6 units ACHS DAYAMI Administration Protocol Oxycodone HCl 5 mg 05/11/18 11:49 05/11/18 13:04 Roxicodone - PO 5 mg Q4H PRN Administration PAIN LEVEL 4 - 6 Polyethylene Glycol 17 gm 05/10/18 22:00 05/11/18 23:11 Miralax (For Daily Use) - PO 17 grams BID DAYAMI Administration Primidone 125 mg 05/07/18 07:00 05/12/18 06:53 Mysoline - PO 125 mg AM DAYAMI Administration Primidone 250 mg 05/06/18 22:00 05/11/18 23:10 Mysoline - PO 250 mg HS DAYAMI Administration Senna 2 tab 05/09/18 11:41 05/11/18 23:10 Senna - PO 2 tab HS PRN Administration CONSTIPATION Topiramate 75 mg 05/06/18 22:00 05/11/18 23:11 Topamax - PO 75 mg BID DAYAMI Administration Home Medications Medication Instructions Recorded Colchicine 0.6 mg PO BID 05/05/18 Glipizide [Glipizide ER] 5 mg PO DAILY 05/05/18 Glipizide [Glipizide ER] 10 mg PO DAILY 05/05/18 Pioglitazone HCl [Actos] 30 mg PO DAILY 05/05/18 Primidone [Mysoline -] 250 mg PO HS 05/05/18 Primidone [Mysoline] 125 mg PO AM 05/05/18 Simvastatin 40 mg PO DAILY 05/05/18 Topiramate 75 mg PO BID 05/05/18 Triamterene/Hydrochlorothiazid 1 tab PO DAILY 05/05/18 [Triamterene-Hctz 37.5-25 mg Cp] Microbiology 05/09/18 12:25 Blood - Peripheral Venous Blood Culture - Preliminary NO GROWTH OBTAINED AFTER 96 HOURS, INCUBATION TO CONTINUE FOR 1 DAYS. 05/09/18 12:40 Blood - Peripheral Venous Blood Culture - Preliminary NO GROWTH OBTAINED AFTER 96 HOURS, INCUBATION TO CONTINUE FOR 1 DAYS. 05/12/18 12:30 Blood - Peripheral Venous Blood Culture - Preliminary NO GROWTH OBTAINED AFTER 24 HOURS, INCUBATION TO CONTINUE FOR 4 DAYS. 05/12/18 12:20 Blood - Peripheral Venous Blood Culture - Preliminary NO GROWTH OBTAINED AFTER 24 HOURS, INCUBATION TO CONTINUE FOR 4 DAYS. PE: per resident's note ASSESSMENT AND PLAN: 82 y/o man with h/o essential tremor, hyperlipidemia, gout, bilateral total knee replacement and Dm who presented with R hip fx after a mechanical fall. # Fever: No further fever noted will discharge the patient to rehab. # Acute Right Femoral neck Fx: s/p R hip hemiarthroplasty continue pain control with tylenol and oxycodone. PT on the case # Anemia: Iron ordered to evaluate the patient. # ALISIA: improving 1.4-->1.0 now s/p IVF # Essential Tremor: On Mysoline continue #H/o DM: cont SSI , hGA1c 7.5 , will place him back to his home meds. Glipizide and Actos # HLP: statin therapy continue with Lipitor # Hx of Gout on colchicine continue Dispo: for SNF when ready medically DVT PX: Heparin sq
[2018-05-12 08:41] LABS: ANION GAP 8 MMOL/L (8-16); BLOOD UREA NITROGEN 28 mg/dL (7-18); CALCIUM 7.7 mg/dL (8.5-10.1); CO2 22 mmol/L (21-32); CREATININE 1.1 mg/dL (0.7-1.3); GLUCOSE,RANDOM 249 mg/dL (74-106); MAGNESIUM 2.1 mg/dL (1.8-2.4); PHOSPHOROUS 1.8 mg/dL (2.5-4.9)
[2018-05-12] MEDS ORDERED: BISACODYL 10 MG SUPP.RECT RC ONE (09:15)
--- NOTE | 2018-05-12 09:44 | PN ---
Progress Note (short form) - Note Progress Note: Pt seen and examined. Doing well s/p surgery. No c/o pain. AVSS H/H low at 8.1/24.6 B/L LE grossly NVI Overall doing well. Rec: P.T., DC planning
[2018-05-12] MEDS: POLYETHYLENE GLYCOL 3350 119 GM BTL PO SCH ×2 (10:39→22:26)
[2018-05-12] MEDS: COLCHICINE 0.6 MG TABLET (FP) PO SCH ×2 (10:40→22:25)
[2018-05-12] MEDS: TOPIRAMATE 25 MG TABLET (FP) PO SCH ×2 (10:40→22:25)
--- NOTE | 2018-05-12 12:04 | PN ---
Progress Note, Physician History of Present Illness: patient again spiked to 101.2 low h and h pain at the operated site - Current Medication List Current Medications: Active Medications Acetaminophen (Tylenol -) 650 mg PO Q6H PRN PRN Reason: PAIN OR FEVER Last Admin: 05/11/18 23:10 Dose: 650 mg Aspirin (Asa -) 325 mg PO DAILY@0800 [facility] Last Admin: 05/12/18 08:00 Dose: 325 mg Atorvastatin Calcium (Lipitor -) 20 mg PO HS [facility] Last Admin: 05/11/18 23:11 Dose: 20 mg Colchicine (Colcrys -) 0.6 mg PO BID [facility] Last Admin: 05/12/18 10:40 Dose: 0.6 mg Docusate Sodium (Colace -) 100 mg PO Q12H PRN PRN Reason: CONSTIPATION Last Admin: 05/11/18 23:10 Dose: 100 mg Heparin Sodium (Porcine) (Heparin -) 5,000 unit SQ TID [facility] Last Admin: 05/12/18 06:53 Dose: 5,000 unit Sodium Chloride (Normal Saline -) 1,000 mls @ 75 mls/hr IV ASDIR [facility] Last Admin: 05/12/18 06:53 Dose: 75 mls/hr Insulin Aspart (Novolog Vial Sliding Scale -) 1 vial SQ ACHS [facility]; Protocol Last Admin: 05/12/18 06:59 Dose: 6 units Oxycodone HCl (Roxicodone -) 5 mg PO Q4H PRN PRN Reason: PAIN LEVEL 4 - 6 Last Admin: 05/11/18 13:04 Dose: 5 mg Polyethylene Glycol (Miralax (For Daily Use) -) 17 gm PO BID [facility] Last Admin: 05/12/18 10:39 Dose: 17 grams Primidone (Mysoline -) 125 mg PO AM [facility] Last Admin: 05/12/18 06:53 Dose: 125 mg Primidone (Mysoline -) 250 mg PO HS [facility] Last Admin: 05/11/18 23:10 Dose: 250 mg Senna (Senna -) 2 tab PO HS PRN PRN Reason: CONSTIPATION Last Admin: 05/11/18 23:10 Dose: 2 tab Topiramate (Topamax -) 75 mg PO BID [facility] Last Admin: 05/12/18 10:40 Dose: 75 mg - Objective Vital Signs: Vital Signs Temperature 99.9 F H 05/12/18 05:00 Pulse Rate 78 05/12/18 05:00 Respiratory Rate 20 05/12/18 05:00 Blood Pressure 100/44 05/12/18 05:00 O2 Sat by Pulse Oximetry (%) 96 05/11/18 21:00 Constitutional: Yes: No Distress, Calm Cardiovascular: Yes: Regular Rate and Rhythm Respiratory: Yes: Regular, CTA Bilaterally Gastrointestinal: Yes: Normal Bowel Sounds, Soft Musculoskeletal: Yes: WNL Extremities: Yes: Other Neurological: Yes: Alert, Oriented Psychiatric: Yes: Alert, Oriented Labs: CBC, BMP 05/12/18 06:30 05/12/18 06:30 INR, PTT INR 1.04 (0.83-1.09) 05/05/18 19:31 Assessment/Plan still spiking fevers rt hip fracture dm hld fever plan i ahve ordered a stat blood cx and xray chest continue monitoring rest as per the team if patient continues to spike i might initiate abx and see if that helps and he will need further work up
[2018-05-12] MEDS ORDERED: INSULIN (NOVOLOG) ASPART 100 UNITS/ML 10ML VIAL ONE ×2 (12:14→21:49)
[2018-05-12] MEDS: SENNOSIDES 8.6MG TABLET (FP) PO PRN (14:10)
[2018-05-12] MEDS: BISACODYL 10 MG SUPP.RECT PR ONE (14:19)
[2018-05-12] MEDS: oxyCODONE HCL 5 MG TABLET PO PRN ×2 (14:33→18:54)
--- NOTE | 2018-05-12 15:03 | PN ---
Physical Exam: SUBJECTIVE: Patient seen and examined at bedside. Continues to complain of constipation. Fever to 101.2 today. Denies n/v, cp, sob. OBJECTIVE: Vital Signs Period Temp Pulse Resp BP Sys/Hill Pulse Ox Last 24 Hr 99.2 F-100.2 F 72-86 20-20 100-110/44-58 96 GENERAL: A&Ox3, NAD HEAD: NC/AT EYES: PERRLA, EOMI, no scleral icterus EARS, NOSE, THROAT: oropharynx clear without exudates. Moist mucous membranes. NECK: supple without lymphadenopathy LUNGS: CTA b/l, no crackles or wheezes HEART: Regular rate and rhythm, S1S2, mild systolic murmur at right sternal border ABDOMEN: Soft, NT/ND, normoactive bowel sounds MUSCULOSKELETAL: Right hip pain with movement, minimal pain on palpation, right leg externally rotated. No sacral ulcer. UPPER EXTREMITIES: 2+ pulses, warm, well-perfused. No cyanosis. No clubbing. No peripheral edema. LOWER EXTREMITIES: 2+ pulses, warm, well-perfused. No calf tenderness. No peripheral edema. Surgical dressing on R hip c/d/i with no drainage or bleeding NEUROLOGICAL: CN II-XII grossly intact. Normal speech. 5/5 strength x RUE, LUE , LLE; RLE exam limited due to pain. PSYCHIATRIC: Cooperative. Good eye contact. Appropriate mood and affect. SKIN: Warm, dry, normal turgor, no rashes or lesions noted Laboratory Results - last 24 hr 05/11/18 05/11/18 05/11/18 16:30 16:34 23:09 WBC 6.4 RBC 2.54 L Hgb 7.9 L Hct 23.3 L MCV 91.7 MCH 30.9 MCHC 33.7 RDW 13.4 Plt Count 198 MPV 9.1 Absolute Neuts (auto) 4.2 Neutrophils % 66.4 Lymphocytes % 15.6 D Monocytes % 9.8 Eosinophils % 7.8 H Basophils % 0.4 Nucleated RBC % 0 Sodium Potassium Chloride Carbon Dioxide Anion Gap BUN Creatinine Creat Clearance w eGFR POC Glucometer 313 272 Random Glucose Calcium Phosphorus Magnesium 05/12/18 05/12/18 05/12/18 06:30 06:30 06:58 WBC 8.6 RBC 2.68 L Hgb 8.1 L Hct 24.6 L MCV 91.8 MCH 30.2 MCHC 32.9 RDW 13.6 Plt Count 221 MPV 8.8 Absolute Neuts (auto) 6.2 Neutrophils % 72.2 Lymphocytes % 11.4 D Monocytes % 8.5 Eosinophils % 7.6 H Basophils % 0.3 Nucleated RBC % 0 Sodium 139 Potassium 4.6 D Chloride 109 H Carbon Dioxide 22 Anion Gap 8 BUN 28 H Creatinine 1.1 Creat Clearance w eGFR > 60 POC Glucometer 270 Random Glucose 249 H Calcium 7.7 L Phosphorus 1.8 L D Magnesium 2.1 05/12/18 12:09 WBC RBC Hgb Hct MCV MCH MCHC RDW Plt Count MPV Absolute Neuts (auto) Neutrophils % Lymphocytes % Monocytes % Eosinophils % Basophils % Nucleated RBC % Sodium Potassium Chloride Carbon Dioxide Anion Gap BUN Creatinine Creat Clearance w eGFR POC Glucometer 213 Random Glucose Calcium Phosphorus Magnesium Active Medications Generic Name Dose Route Start Last Admin Trade Name Freq PRN Reason Stop Dose Admin Acetaminophen 650 mg 05/08/18 22:37 05/11/18 23:10 Tylenol - PO 650 mg Q6H PRN Administration PAIN OR FEVER Aspirin 325 mg 05/07/18 08:00 05/12/18 08:00 Asa - PO 325 mg DAILY@0800 DAYAMI Administration Atorvastatin Calcium 20 mg 05/06/18 22:00 05/11/18 23:11 Lipitor - PO 20 mg HS DAYAMI Administration Colchicine 0.6 mg 05/06/18 22:00 05/12/18 10:40 Colcrys - PO 0.6 mg BID DAYAMI Administration Docusate Sodium 100 mg 05/07/18 17:00 05/11/18 23:10 Colace - PO 100 mg Q12H PRN Administration CONSTIPATION Heparin Sodium (Porcine) 5,000 unit 05/07/18 08:00 05/12/18 14:10 Heparin - SQ 5,000 unit TID DAYAMI Administration Sodium Chloride 1,000 mls @ 75 mls/hr 05/09/18 14:00 05/12/18 06:53 Normal Saline - IV 75 mls/hr ASDIR DAYAMI Administration Insulin Aspart 1 vial 05/09/18 22:00 05/12/18 12:10 Novolog Vial Sliding Scale - SQ 4 units ACHS DAYAMI Administration Protocol Oxycodone HCl 5 mg 05/11/18 11:49 08/30/18 14:33 Roxicodone - PO 5 mg Q4H PRN Administration PAIN LEVEL 4 - 6 Polyethylene Glycol 17 gm 05/10/18 22:00 05/12/18 10:39 Miralax (For Daily Use) - PO 17 grams BID DAYAMI Administration Primidone 125 mg 05/07/18 07:00 05/12/18 06:53 Mysoline - PO 125 mg AM DAYAMI Administration Primidone 250 mg 05/06/18 22:00 05/11/18 23:10 Mysoline - PO 250 mg HS DAYAMI Administration Senna 2 tab 05/09/18 11:41 05/12/18 14:10 Senna - PO 2 tab HS PRN Administration CONSTIPATION Topiramate 75 mg 05/06/18 22:00 05/12/18 10:40 Topamax - PO 75 mg BID DAYAMI Administration ASSESSMENT/PLAN: 82 y/o M w/ PMHx NIDDM, essential tremor admitted 2/2 R hip fx, s/p R hip marion, POD #6. #Right Hip Fracture; s/p R hip marion, POD #6. - spiking intermittent fevers, 101.2 today - No growth yet on BCx - oxycodone 5 mg PO Q4 for pain - ID consulted (Dr. Bryant) - UCx re-sent and R hip radiograph per Dr. Bryant - d/c will be to SNF, SW is on board and facility placement ready #Fever -unknown source -new stat BCx -new stat XR pending #anemia - H/H low but stable - constipation may be concealing LGIB - no intervention from orthopedics - FOBT pending #constipation - 1st BM in 8 days this morning - miralax BID #NIDDM - repeat HbA1c = 7.5 - BGMs - ISS - hold home meds #Essential Tremor - Topiramate 25 mg PO QD - Primidone 250 mg 1/2 tab qAM and 1 tab qHS #HLD - Atorvastatin 20 mg PO HS #ALISIA - Cr 1.1, stable/resolved - NS @ 75 - encourage oral hydration #hx of gout -colchicine 0.6 mg BID #DVT Prophylaxis - Heparin 5000U SQ TID #FEN - Fluids: NS @ 75 cc/hr - Electrolytes: No electrolyte abnormalities, BMP in AM - Nutrition: Diabetic diet #Dispo - Med/Surg - SNF after d/c, SW is on board and facility placement ready Visit type - Emergency Visit Emergency Visit: No - New Patient This patient is new to me today: No - Critical Care Critical Care patient: No
--- NOTE | 2018-05-12 16:14 | PATH ---
Surgical Pathology Report Patient Name: KILEY GLASER Med. Rec. #: [id number] /Age/Gender: 1935 (Age: 82) / M Account: [id number] Location: [address] [place] [address]/[facility] Taken: 05/06/2018 Received: 05/09/2018 Reported: 05/12/2018 Physicians: Mina Gomes M.D. PHYSICIAN EMERGENCY DEPT Specimen(s) Received FEMORAL HEAD RIGHT SIDE Clinical History Right femoral neck fracture Final Diagnosis FEMORAL HEAD, RIGHT, RESECTION: FEMORAL HEAD SHOWING FOCAL INTERTRABECULAR ORGANIZING HEMORRHAGE AND FEW FRAGMENTS OF NECROTIC BONE, CONSISTENT WITH FRACTURE. Electronically Signed Nettie Fall M.D. Gross Description Received in formalin, labeled "femoral head right side," is a 4.6 x 4.6 x 3.6 cm. femoral head with a 1.5 cm in length portion of femoral neck attached. The margin of resection is red-brown, jagged and hemorrhagic. No areas of eburnation are identified. The articular surface is whittington-yellow and focally granular. The underlying trabecular bone is yellow, hard and focally hemorrhagic. Finisher Brush sections are submitted in two cassettes, following decalcification. 05/09/2018 [facility]05/09/2018
[2018-05-12] MEDS: ACETAMINOPHEN 325 MG TABLET (FP) PO PRN (18:47)
[2018-05-12] MEDS: ATORVASTATIN CA 20 MG TABLET (FP) PO SCH (22:25)
[2018-05-13] MEDS: ACETAMINOPHEN 325 MG TABLET (FP) PO PRN ×2 (00:49→10:22)
[2018-05-13] MEDS: HEPARIN NA (PORCINE) 5,000 UNITS/ML 1ML VIAL SQ SCH ×3 (06:53→22:18)
[2018-05-13] MEDS: PRIMIDONE 250 MG TABLET PO SCH ×2 (06:54→22:18)
[2018-05-13] MEDS: INSULIN SLIDING SCALE (NOVOLOG) 1 VIAL SQ SCH ×4 (07:01→22:19)
[2018-05-13] MEDS ORDERED: INSULIN (NOVOLOG) ASPART 100 UNITS/ML 10ML VIAL ONE ×4 (07:41→19:55)
[2018-05-13 08:31] LABS: BASO % 0.5 % (0-2.0); HEMATOCRIT 25.8 % (35.4-49); HEMOGLOBIN 8.3 GM/dL (11.7-16.9); LYMPH % 12.8 % (8-40); MCH 29.6 pg (25.7-33.7); MCHC 32.3 g/dl (32.0-35.9); MEAN CELL VOLUME 91.6 fl (80-96); MEAN PLT VOLUME 8.9 fl (7.5-11.1); MONO % 10.3 % (3.8-10.2); NEUT % 70.4 % (42.8-82.8); PLATELET COUNT 269 K/MM3 (134-434); RBC 2.82 M/mm3 (4.00-5.60); RDW 13.4 % (11.9-15.9); WHITE BLOOD COUNT 10.5 K/mm3 (4.0-10.0)
--- NOTE | 2018-05-13 08:36 | PN ---
Teaching Attending Note Name of Resident: Teodoro Dixon ATTENDING PHYSICIAN STATEMENT I saw and evaluated the patient. I reviewed the resident's note and discussed the case with the resident. I agree with the resident's findings and plan as documented. SUBJECTIVE: The discharge was held due to patient was having fever yesterday afternoon of 101.5 as per ID OBJECTIVE: Vital Signs Temperature 99.1 F 05/13/18 05:56 Pulse Rate 82 05/13/18 05:56 Respiratory Rate 20 05/13/18 05:56 Blood Pressure 132/62 05/13/18 05:56 O2 Sat by Pulse Oximetry (%) 96 05/12/18 21:00 CBCD WBC 10.5 K/mm3 (4.0-10.0) H 05/13/18 08:00 RBC 2.82 M/mm3 (4.00-5.60) L 05/13/18 08:00 Hgb 8.3 GM/dL (11.7-16.9) L 05/13/18 08:00 Hct 25.8 % (35.4-49) L 05/13/18 08:00 MCV 91.6 fl (80-96) 05/13/18 08:00 MCHC 32.3 g/dl (32.0-35.9) 05/13/18 08:00 RDW 13.4 % (11.9-15.9) 05/13/18 08:00 Plt Count 269 K/MM3 (134-434) D 05/13/18 08:00 MPV 8.9 fl (7.5-11.1) 05/13/18 08:00 CMP Sodium 139 mmol/L (136-145) 05/12/18 06:30 Potassium 4.6 mmol/L (3.5-5.1) D 05/12/18 06:30 Chloride 109 mmol/L (98-107) H 05/12/18 06:30 Carbon Dioxide 22 mmol/L (21-32) 05/12/18 06:30 Anion Gap 8 MMOL/L (8-16) 05/12/18 06:30 BUN 28 mg/dL (7-18) H 05/12/18 06:30 Creatinine 1.1 mg/dL (0.7-1.3) 05/12/18 06:30 Creat Clearance w eGFR > 60 (>60) 05/12/18 06:30 Random Glucose 249 mg/dL (74-106) H 05/12/18 06:30 Calcium 7.7 mg/dL (8.5-10.1) L 05/12/18 06:30 Total Bilirubin 0.2 mg/dL (0.2-1.0) 05/05/18 18:55 AST 21 U/L (15-37) 05/05/18 18:55 ALT 28 U/L (12-78) 05/05/18 18:55 Alkaline Phosphatase 66 U/L (45-117) 05/05/18 18:55 Total Protein 7.5 g/dl (6.4-8.2) 05/05/18 18:55 Albumin 3.9 g/dl (3.4-5.0) 05/05/18 18:55 CARDIAC ENZYMES Creatine Kinase 146 IU/L (39-308) 05/06/18 07:15 Current Medications Generic Name Dose Route Start Last Admin Trade Name Freq PRN Reason Stop Dose Admin Acetaminophen 650 mg 05/08/18 22:37 05/13/18 00:49 Tylenol - PO 650 mg Q6H PRN Administration PAIN OR FEVER Aspirin 325 mg 05/07/18 08:00 05/12/18 08:00 Asa - PO 325 mg DAILY@0800 DAYAMI Administration Atorvastatin Calcium 20 mg 05/06/18 22:00 05/12/18 22:25 Lipitor - PO 20 mg HS DAYAMI Administration Colchicine 0.6 mg 05/06/18 22:00 05/12/18 22:25 Colcrys - PO 0.6 mg BID DAYAMI Administration Docusate Sodium 100 mg 05/07/18 17:00 05/11/18 23:10 Colace - PO 100 mg Q12H PRN Administration CONSTIPATION Heparin Sodium (Porcine) 5,000 unit 05/07/18 08:00 05/13/18 06:53 Heparin - SQ 5,000 unit TID DAYAMI Administration Sodium Chloride 1,000 mls @ 75 mls/hr 05/09/18 14:00 05/12/18 06:53 Normal Saline - IV 75 mls/hr ASDIR DAYAMI Administration Insulin Aspart 1 vial 05/09/18 22:00 05/13/18 07:01 Novolog Vial Sliding Scale - SQ 4 units ACHS DAYAMI Administration Protocol Oxycodone HCl 5 mg 05/11/18 11:49 05/12/18 18:54 Roxicodone - PO 5 mg Q4H PRN Administration PAIN LEVEL 4 - 6 Polyethylene Glycol 17 gm 05/10/18 22:00 05/12/18 22:26 Miralax (For Daily Use) - PO 17 grams BID DAYAMI Administration Primidone 125 mg 05/07/18 07:00 05/13/18 06:54 Mysoline - PO 125 mg AM DAYAMI Administration Primidone 250 mg 05/06/18 22:00 05/12/18 22:27 Mysoline - PO 250 mg HS DAYAMI Administration Senna 2 tab 05/09/18 11:41 05/12/18 14:10 Senna - PO 2 tab HS PRN Administration CONSTIPATION Topiramate 75 mg 05/06/18 22:00 05/12/18 22:25 Topamax - PO 75 mg BID DAYAMI Administration Home Medications Medication Instructions Recorded Colchicine 0.6 mg PO BID 05/05/18 Glipizide [Glipizide ER] 5 mg PO DAILY 05/05/18 Glipizide [Glipizide ER] 10 mg PO DAILY 05/05/18 Pioglitazone HCl [Actos] 30 mg PO DAILY 05/05/18 Primidone [Mysoline -] 250 mg PO HS 05/05/18 Primidone [Mysoline] 125 mg PO AM 05/05/18 Simvastatin 40 mg PO DAILY 05/05/18 Topiramate 75 mg PO BID 05/05/18 Triamterene/Hydrochlorothiazid 1 tab PO DAILY 05/05/18 [Triamterene-Hctz 37.5-25 mg Cp] Acetaminophen [Tylenol .Regular 650 mg PO Q6H PRN tablet 05/12/18 Strength -] Aspirin [ASA -] 325 mg PO DAILY@0800 tablet 05/12/18 Docusate Sodium [Colace -] 100 mg PO Q12H PRN capsule 05/12/18 Heparin - 5,000 unit SQ TID vial 05/12/18 Polyethylene Glycol 3350 [Miralax 17 gm PO BID bottle 05/12/18 119 gm Btl -] Sennosides [Senna -] 2 tab PO HS PRN tablet 05/12/18 oxyCODONE HCL [Roxicodone -] 5 mg PO Q6H PRN tablet MDD 4 05/12/18 PE: per resident's note Microbiology 05/09/18 12:25 Blood - Peripheral Venous Blood Culture - Preliminary NO GROWTH OBTAINED AFTER 96 HOURS, INCUBATION TO CONTINUE FOR 1 DAYS. 05/09/18 12:40 Blood - Peripheral Venous Blood Culture - Preliminary NO GROWTH OBTAINED AFTER 96 HOURS, INCUBATION TO CONTINUE FOR 1 DAYS. 05/12/18 12:30 Blood - Peripheral Venous Blood Culture - Preliminary NO GROWTH OBTAINED AFTER 24 HOURS, INCUBATION TO CONTINUE FOR 4 DAYS. 05/12/18 12:20 Blood - Peripheral Venous Blood Culture - Preliminary NO GROWTH OBTAINED AFTER 24 HOURS, INCUBATION TO CONTINUE FOR 4 DAYS. ASSESSMENT AND PLAN: 82 y/o man with h/o essential tremor, hyperlipidemia, gout, bilateral total knee replacement and Dm who presented with R hip fx after a mechanical fall. # Fever of unknown source for now, no cough, blood cx , UA urine Cx was ordered , discharge was held, ID on the case, added Rocephin will monitor # Acute Right Femoral neck Fx: s/p R hip hemiarthroplasty continue pain meds; tylenol and oxycodone. PT on the case # Anemia: Iron w/u was ordered to evaluate the patient. # ALISIA: improving 1.4-->1.0 now s/p IVF # Essential Tremor: On Mysoline continue #H/o DM: cont SSI , hGA1c 7.5 , will place him back to his home meds. Glipizide and Actos # HLP: statin therapy continue with Lipitor # Hx of Gout on colchicine continue Dispo: for SNF when ready medically DVT PX: Heparin sq Discharge was held from Rehab due to having fever, negative w/u so far.
[2018-05-13 08:54] LABS: ANION GAP 9 MMOL/L (8-16); BLOOD UREA NITROGEN 25 mg/dL (7-18); CHLORIDE 110 mmol/L (98-107); CO2 23 mmol/L (21-32); GLUCOSE,RANDOM 208 mg/dL (74-106); SODIUM 142 mmol/L (136-145)
--- NOTE | 2018-05-13 09:29 | PN ---
Physical Exam: SUBJECTIVE: Patient seen and examined at bedside, complains of ongoing constipation and disliking the post-surgical braces around his feet. Otherwise comfortable. OBJECTIVE: Vital Signs Period Temp Pulse Resp BP Sys/Hill Pulse Ox Last 24 Hr 98.9 F-101.7 F 76-87 18-20 111-141/56-72 96 GENERAL: A&Ox3, NAD HEAD: NC/AT EYES: PERRLA, EOMI, no scleral icterus EARS, NOSE, THROAT: oropharynx clear without exudates. Moist mucous membranes. NECK: supple without lymphadenopathy LUNGS: CTA b/l, no crackles or wheezes HEART: Regular rate and rhythm, S1S2, mild systolic murmur at right sternal border ABDOMEN: Soft, NT/ND, normoactive bowel sounds MUSCULOSKELETAL: Right hip pain with movement, minimal pain on palpation, right leg externally rotated. No sacral ulcer. UPPER EXTREMITIES: 2+ pulses, warm, well-perfused. No cyanosis. No clubbing. No peripheral edema. LOWER EXTREMITIES: 2+ pulses, warm, well-perfused. No calf tenderness. No peripheral edema. Tender at R hip surgical site. NEUROLOGICAL: CN II-XII grossly intact. Known tremor present. Normal speech. 5/ 5 strength x RUE, LUE, LLE; RLE exam limited due to pain. PSYCHIATRIC: Cooperative. Good eye contact. Appropriate mood and affect. SKIN: Warm, dry, normal turgor, no rashes or lesions noted Laboratory Results - last 24 hr 05/12/18 05/12/18 05/12/18 12:09 18:19 22:33 WBC RBC Hgb Hct MCV MCH MCHC RDW Plt Count MPV Absolute Neuts (auto) Neutrophils % Lymphocytes % Monocytes % Eosinophils % Basophils % Nucleated RBC % Sodium Potassium Chloride Carbon Dioxide Anion Gap BUN Creatinine Creat Clearance w eGFR POC Glucometer 213 246 240 Random Glucose Calcium Stool Occult Blood 05/13/18 05/13/18 05/13/18 03:30 06:59 08:00 WBC 10.5 H RBC 2.82 L Hgb 8.3 L Hct 25.8 L MCV 91.6 MCH 29.6 MCHC 32.3 RDW 13.4 Plt Count 269 D MPV 8.9 Absolute Neuts (auto) 7.4 Neutrophils % 70.4 Lymphocytes % 12.8 Monocytes % 10.3 H Eosinophils % 6.0 H Basophils % 0.5 Nucleated RBC % 0 Sodium Potassium Chloride Carbon Dioxide Anion Gap BUN Creatinine Creat Clearance w eGFR POC Glucometer 243 Random Glucose Calcium Stool Occult Blood Positive 05/13/18 08:00 WBC RBC Hgb Hct MCV MCH MCHC RDW Plt Count MPV Absolute Neuts (auto) Neutrophils % Lymphocytes % Monocytes % Eosinophils % Basophils % Nucleated RBC % Sodium 142 Potassium 4.0 Chloride 110 H Carbon Dioxide 23 Anion Gap 9 BUN 25 H Creatinine 1.0 Creat Clearance w eGFR > 60 POC Glucometer Random Glucose 208 H Calcium 8.0 L Stool Occult Blood Active Medications Generic Name Dose Route Start Last Admin Trade Name Freq PRN Reason Stop Dose Admin Acetaminophen 650 mg 05/08/18 22:37 05/13/18 00:49 Tylenol - PO 650 mg Q6H PRN Administration PAIN OR FEVER Aspirin 325 mg 05/07/18 08:00 05/12/18 08:00 Asa - PO 325 mg DAILY@0800 DAYAMI Administration Atorvastatin Calcium 20 mg 05/06/18 22:00 05/12/18 22:25 Lipitor - PO 20 mg HS DAYAMI Administration Colchicine 0.6 mg 05/06/18 22:00 05/12/18 22:25 Colcrys - PO 0.6 mg BID DAYAMI Administration Docusate Sodium 100 mg 05/07/18 17:00 05/11/18 23:10 Colace - PO 100 mg Q12H PRN Administration CONSTIPATION Heparin Sodium (Porcine) 5,000 unit 05/07/18 08:00 05/13/18 06:53 Heparin - SQ 5,000 unit TID DAYAMI Administration Sodium Chloride 1,000 mls @ 75 mls/hr 05/09/18 14:00 05/12/18 06:53 Normal Saline - IV 75 mls/hr ASDIR DAYAMI Administration Insulin Aspart 1 vial 05/09/18 22:00 05/13/18 07:01 Novolog Vial Sliding Scale - SQ 4 units ACHS DAYAMI Administration Protocol Oxycodone HCl 5 mg 05/11/18 11:49 05/12/18 18:54 Roxicodone - PO 5 mg Q4H PRN Administration PAIN LEVEL 4 - 6 Polyethylene Glycol 17 gm 05/10/18 22:00 05/12/18 22:26 Miralax (For Daily Use) - PO 17 grams BID DAYAMI Administration Primidone 125 mg 05/07/18 07:00 05/13/18 06:54 Mysoline - PO 125 mg AM DAYAMI Administration Primidone 250 mg 05/06/18 22:00 05/12/18 22:27 Mysoline - PO 250 mg HS DAYAMI Administration Senna 2 tab 05/09/18 11:41 05/12/18 14:10 Senna - PO 2 tab HS PRN Administration CONSTIPATION Topiramate 75 mg 05/06/18 22:00 05/12/18 22:25 Topamax - PO 75 mg BID DAYAMI Administration ASSESSMENT/PLAN: 82 y/o M w/ PMHx NIDDM, essential tremor admitted 2/2 R hip fx, s/p R hip marion, POD #7. #Right Hip Fracture; s/p R hip marion, POD #7. - oxycodone 5 mg PO Q4 for pain - d/c will be to SNF, SW is on board and facility placement ready #Fever -unknown source, 101.7 MO last night -WBC 10.5 today from 8.6 -BCx, UCx pending -CXR benign -ID consulted (Dr. Bryant), initating IV Ceftriaxone 1g #anemia - H/H low but now stable - constipation may be concealing LGIB - no intervention from orthopedics - FOBT positive #constipation - FOBT positive - GI (Dr. Shelby consulted), reccs as follows: - enema x 2 today - miralax TID - AXR read pending - non-urgent EGD/colonoscopy #NIDDM - repeat HbA1c = 7.5 - BGMs - ISS - hold home meds #Essential Tremor - Topiramate 25 mg PO QD - Primidone 250 mg 1/2 tab qAM and 1 tab qHS #HLD - Atorvastatin 20 mg PO HS #ALISIA - resolved - BUN Cr stable - NS @ 75 - encourage oral hydration #hx of gout -colchicine 0.6 mg BID #DVT Prophylaxis - Heparin 5000U SQ TID #FEN - Fluids: NS @ 75 cc/hr - Electrolytes: No electrolyte abnormalities, BMP in AM - Nutrition: Diabetic diet #Dispo - Med/Surg - SNF after d/c, SW is on board and facility placement ready Visit type - Emergency Visit Emergency Visit: No - New Patient This patient is new to me today: No - Critical Care Critical Care patient: No
--- NOTE | 2018-05-13 09:43 | CON.GI ---
Consult Consult Specialty:: GI Reason for Consultation:: anemia, heme positive stools - History of Present Illness History of Present Illness: Chart reviewed. Events noted. GI called for normocytic, normochromci anemia with heme positive stools. 2 g decrease in HGB occurred on 05/10/18. Had hip replaced on (12 g/dl to 10 in the following 3 days). Has been spiking fevers and recently developed leukocytosis. Was having drug-induced constipation , which has been mitigated with miralalx, enemas, and stool softners. Per pt.s nurse he had 2 loose stools overnight. No lyndsey melena, hematochezia, hematemesis reported/documented. NAD, AA. Benign abdomen on exam. - History Source History Provided By: Patient, Medical Record, Caregiver - Alcohol/Substance Use Hx Alcohol Use: No - Smoking History Smoking history: Never smoked Home Medications - Allergies Allergies/Adverse Reactions: Allergies Allergy/AdvReac Type Severity Reaction Status Date / Time indomethacin Allergy Verified 05/05/18 17:05 naproxen [From Naprosyn] Allergy Verified 05/05/18 17:05 Penicillins Allergy Verified 05/05/18 17:05 sulindac Allergy Verified 05/05/18 17:05 - Home Medications Home Medications: Ambulatory Orders Colchicine 0.6 mg PO BID 05/05/18 Glipizide [Glipizide ER] 5 mg PO DAILY 05/05/18 Glipizide [Glipizide ER] 10 mg PO DAILY 05/05/18 Pioglitazone HCl [Actos] 30 mg PO DAILY 05/05/18 Primidone [Mysoline -] 250 mg PO HS 05/05/18 Primidone [Mysoline] 125 mg PO AM 05/05/18 Simvastatin 40 mg PO DAILY 05/05/18 Topiramate 75 mg PO BID 05/05/18 Triamterene/Hydrochlorothiazid [Triamterene-Hctz 37.5-25 mg Cp] 1 tab PO DAILY 05/05/18 Acetaminophen [Tylenol .Regular Strength -] 650 mg PO Q6H PRN tablet 05/12/18 Aspirin [ASA -] 325 mg PO DAILY@0800 tablet 05/12/18 Docusate Sodium [Colace -] 100 mg PO Q12H PRN capsule 05/12/18 Heparin - 5,000 unit SQ TID vial 05/12/18 Polyethylene Glycol 3350 [Miralax 119 gm Btl -] 17 gm PO BID bottle 05/12/18 Sennosides [Senna -] 2 tab PO HS PRN tablet 05/12/18 oxyCODONE HCL [Roxicodone -] 5 mg PO Q6H PRN tablet MDD 4 05/12/18 Family Disease History - Family Disease History Family History: Unremarkable Review of Systems Findings/Remarks: as per HPI, H&P, ED Physical Exam-GI Vital Signs: Vital Signs Temperature 99.1 F 05/13/18 05:56 Pulse Rate 82 05/13/18 05:56 Respiratory Rate 20 05/13/18 05:56 Blood Pressure 132/62 05/13/18 05:56 O2 Sat by Pulse Oximetry (%) 96 05/12/18 21:00 Constitutional: Yes: Well Nourished, No Distress, Calm Eyes: Yes: Conjunctiva Clear HENT: Yes: Atraumatic Neck: Yes: Supple Cardiovascular: Yes: Regular Rate and Rhythm Respiratory: Yes: Regular Gastrointestinal Inspection: No: Ascites, Distention ...Auscultate: Yes: Normoactive Bowel Sounds ...Palpate: Yes: Soft. No: Firm/Rigid, Guarding, Mass, Tenderness, Tenderness, Epigastium, Tenderness, Rebound Neurological: Yes: Alert Labs: CBC, BMP 05/13/18 08:00 05/13/18 08:00 INR, PTT INR 1.04 (0.83-1.09) 05/05/18 19:31 Laboratory Last Values WBC 10.5 K/mm3 (4.0-10.0) H 05/13/18 08:00 RBC 2.82 M/mm3 (4.00-5.60) L 05/13/18 08:00 Hgb 8.3 GM/dL (11.7-16.9) L 05/13/18 08:00 Hct 25.8 % (35.4-49) L 05/13/18 08:00 MCV 91.6 fl (80-96) 05/13/18 08:00 MCH 29.6 pg (25.7-33.7) 05/13/18 08:00 MCHC 32.3 g/dl (32.0-35.9) 05/13/18 08:00 RDW 13.4 % (11.9-15.9) 05/13/18 08:00 Plt Count 269 K/MM3 (134-434) D 05/13/18 08:00 MPV 8.9 fl (7.5-11.1) 05/13/18 08:00 Absolute Neuts (auto) 7.4 K/mm3 (1.5-8.0) 05/13/18 08:00 Neutrophils % 70.4 % (42.8-82.8) 05/13/18 08:00 Lymphocytes % 12.8 % (8-40) 05/13/18 08:00 Monocytes % 10.3 % (3.8-10.2) H 05/13/18 08:00 Eosinophils % 6.0 % (0-4.5) H 05/13/18 08:00 Basophils % 0.5 % (0-2.0) 05/13/18 08:00 Nucleated RBC % 0 % (0-0) 05/13/18 08:00 PT with INR 11.70 SEC (9.7-13.0) 05/05/18 19:31 INR 1.04 (0.83-1.09) 05/05/18 19:31 PTT (Actin FS) 25.2 SECONDS (25.2-36.5) 05/05/18 19:55 Sodium 142 mmol/L (136-145) 05/13/18 08:00 Potassium 4.0 mmol/L (3.5-5.1) 05/13/18 08:00 Chloride 110 mmol/L (98-107) H 05/13/18 08:00 Carbon Dioxide 23 mmol/L (21-32) 05/13/18 08:00 Anion Gap 9 MMOL/L (8-16) 05/13/18 08:00 BUN 25 mg/dL (7-18) H 05/13/18 08:00 Creatinine 1.0 mg/dL (0.7-1.3) 05/13/18 08:00 Creat Clearance w eGFR > 60 (>60) 05/13/18 08:00 POC Glucometer 243 UNITS (80-120) 05/13/18 06:59 Random Glucose 208 mg/dL (74-106) H 05/13/18 08:00 Hemoglobin A1c % 7.5 % (4.8-6.0) H D 05/09/18 07:00 Uric Acid 6.8 mg/dL (2.6-7.2) 05/05/18 21:34 Calcium 8.0 mg/dL (8.5-10.1) L 05/13/18 08:00 Phosphorus 1.8 mg/dL (2.5-4.9) L D 05/12/18 06:30 Magnesium 2.1 mg/dL (1.8-2.4) 05/12/18 06:30 Total Bilirubin 0.2 mg/dL (0.2-1.0) 05/05/18 18:55 AST 21 U/L (15-37) 05/05/18 18:55 ALT 28 U/L (12-78) 05/05/18 18:55 Alkaline Phosphatase 66 U/L (45-117) 05/05/18 18:55 Creatine Kinase 146 IU/L (39-308) 05/06/18 07:15 Total Protein 7.5 g/dl (6.4-8.2) 05/05/18 18:55 Albumin 3.9 g/dl (3.4-5.0) 05/05/18 18:55 Urine Color Yellow 05/13/18 09:00 Urine Appearance Clear 05/13/18 09:00 Urine pH 5.0 (5.0-8.0) 05/13/18 09:00 Ur Specific Sharon 1.016 (1.001-1.035) 05/13/18 09:00 Urine Protein Negative (NEGATIVE) 05/13/18 09:00 Urine Glucose (UA) 1+ (NEGATIVE) H 05/13/18 09:00 Urine Ketones Negative (NEGATIVE) 05/13/18 09:00 Urine Blood 1+ (NEGATIVE) H 05/13/18 09:00 Urine Nitrite Negative (NEGATIVE) 05/13/18 09:00 Urine Bilirubin Negative (<2.0 mg/dL) 05/13/18 09:00 Urine Urobilinogen Negative mg/dL (0.2-1.0) 05/13/18 09:00 Ur Leukocyte Esterase Negative (NEGATIVE) 05/13/18 09:00 Urine WBC (Auto) <1 /hpf (3-5) 05/08/18 21:45 Urine RBC (Auto) 1 /hpf (0-3) 05/08/18 21:45 Urine Mucus Rare 05/08/18 21:45 Stool Occult Blood Positive (NEGATIVE) 05/13/18 03:30 Blood Type O POSITIVE 05/05/18 22:15 Antibody Screen Negative 05/05/18 19:55 Problem List - Problems (1) Anemia Code(s): D64.9 - ANEMIA, UNSPECIFIED (2) Hip fracture Code(s): S72.009A - FRACTURE OF UNSP PART OF NECK OF UNSP FEMUR, INIT Assessment/Plan An 82M with normocytic, normocromic anemia of inpatient onset with heme positive , non-melanotic stools. No overt stigmata of GI bleeding noted while hospitalized. Had a normal colonoscopy with Pita 2 y ago. Avoid NSAIDs. Agree with miralax po tid. OK to give tap water enema x 2 today. AXR. Address leukocytosis and fever. Will need non-urgent EGD and colonoscopy.
[2018-05-13 10:14] LABS: URINE APPEARANCE CLEAR; URINE BILIRUBIN NEGATIVE (<2.0 mg/dL); URINE COLOR YELLOW; URINE GLUCOSE (UA) 1+ (NEGATIVE); URINE KETONE NEGATIVE (NEGATIVE); URINE LEUK ESTERASE NEGATIVE (NEGATIVE); URINE NITRITE NEGATIVE (NEGATIVE); URINE PROTEIN NEGATIVE (NEGATIVE); URINE UROBILINOGEN NEGATIVE mg/dL (0.2-1.0)
[2018-05-13] MEDS: ASPIRIN 325 MG TABLET PO SCH (10:15)
[2018-05-13] MEDS: COLCHICINE 0.6 MG TABLET (FP) PO SCH ×2 (10:15→22:18)
[2018-05-13] MEDS: TOPIRAMATE 25 MG TABLET (FP) PO SCH ×2 (10:15→22:19)
[2018-05-13] MEDS: POLYETHYLENE GLYCOL 3350 119 GM BTL PO SCH ×4 (10:16→22:19)
--- NOTE | 2018-05-13 11:25 | PN ---
Progress Note, Physician History of Present Illness: patient continues to spike fever recent cx all are pending - Current Medication List Current Medications: Active Medications Acetaminophen (Tylenol -) 650 mg PO Q6H PRN PRN Reason: PAIN OR FEVER Last Admin: 05/13/18 10:22 Dose: 650 mg Aspirin (Asa -) 325 mg PO DAILY@0800 [facility] Last Admin: 05/13/18 10:15 Dose: 325 mg Atorvastatin Calcium (Lipitor -) 20 mg PO HS [facility] Last Admin: 05/12/18 22:25 Dose: 20 mg Colchicine (Colcrys -) 0.6 mg PO BID [facility] Last Admin: 05/13/18 10:15 Dose: 0.6 mg Docusate Sodium (Colace -) 100 mg PO Q12H PRN PRN Reason: CONSTIPATION Last Admin: 05/11/18 23:10 Dose: 100 mg Heparin Sodium (Porcine) (Heparin -) 5,000 unit SQ TID [facility] Last Admin: 05/13/18 06:53 Dose: 5,000 unit Sodium Chloride (Normal Saline -) 1,000 mls @ 75 mls/hr IV ASDIR [facility] Last Admin: 05/12/18 06:53 Dose: 75 mls/hr Ceftriaxone Sodium 1 gm/ (Dextrose) 100 mls @ 200 mls/hr IVPB DAILY [facility]; Protocol Insulin Aspart (Novolog Vial Sliding Scale -) 1 vial SQ ACHS [facility]; Protocol Last Admin: 05/13/18 07:01 Dose: 4 units Oxycodone HCl (Roxicodone -) 5 mg PO Q4H PRN PRN Reason: PAIN LEVEL 4 - 6 Last Admin: 05/12/18 18:54 Dose: 5 mg Polyethylene Glycol (Miralax (For Daily Use) -) 17 gm PO BID [facility] Last Admin: 05/13/18 10:16 Dose: 17 grams Primidone (Mysoline -) 125 mg PO AM [facility] Last Admin: 05/13/18 06:54 Dose: 125 mg Primidone (Mysoline -) 250 mg PO HS [facility] Last Admin: 05/12/18 22:27 Dose: 250 mg Senna (Senna -) 2 tab PO HS PRN PRN Reason: CONSTIPATION Last Admin: 05/12/18 14:10 Dose: 2 tab Topiramate (Topamax -) 75 mg PO BID [facility] Last Admin: 05/13/18 10:15 Dose: 75 mg - Objective Vital Signs: Vital Signs Temperature 100.0 F H 05/13/18 10:01 Pulse Rate 73 05/13/18 10:01 Respiratory Rate 20 05/13/18 10:01 Blood Pressure 121/58 05/13/18 10:01 O2 Sat by Pulse Oximetry (%) 96 05/12/18 21:00 Constitutional: Yes: No Distress, Calm Cardiovascular: Yes: Regular Rate and Rhythm Respiratory: Yes: Regular, CTA Bilaterally Gastrointestinal: Yes: Normal Bowel Sounds, Soft Musculoskeletal: Yes: WNL Extremities: Yes: Other Wound/Incision: Yes: Clean/Dry Neurological: Yes: Alert, Oriented Labs: CBC, BMP 05/13/18 08:00 05/13/18 08:00 INR, PTT INR 1.04 (0.83-1.09) 05/05/18 19:31 Assessment/Plan still spiking fevers rt hip fracture dm hld fever plan i am empirically going to start him on abx and see if the patient stops spiking if he continues to spike then will need a detailed work up rest as per the team and the patient
[2018-05-13] MEDS ORDERED: CEFTRIAXONE 1 GM in DEXTROSE 5%-WATER - 100 ML IVPB SCH (11:30)
[2018-05-13] MEDS ORDERED: ERTAPENEM SODIUM 1 GM/50 ML PRE-DOCKED IVPB SCH (21:15)
[2018-05-13] MEDS ORDERED: PT OWN MED DRAWER 7, Y5N ONE (22:02)
[2018-05-13] MEDS: ATORVASTATIN CA 20 MG TABLET (FP) PO SCH (22:18)
[2018-05-13] MEDS: ERTAPENEM SODIUM 1 GM in SODIUM CHLORIDE 50 ML IVPB SCH (22:34)
[2018-05-14] MEDS: PRIMIDONE 250 MG TABLET PO SCH ×2 (06:11→21:02)
[2018-05-14] MEDS: HEPARIN NA (PORCINE) 5,000 UNITS/ML 1ML VIAL SQ SCH (06:11)
[2018-05-14] MEDS: POLYETHYLENE GLYCOL 3350 119 GM BTL PO SCH ×3 (06:12→21:02)
[2018-05-14] MEDS: INSULIN SLIDING SCALE (NOVOLOG) 1 VIAL SQ SCH ×4 (06:12→21:40)
[2018-05-14 08:10] LABS: BASO % 0.4 % (0-2.0); EOS % 7.5 % (0-4.5); HEMATOCRIT 23.9 % (35.4-49); HEMOGLOBIN 7.9 GM/dL (11.7-16.9); LYMPH % 16.8 % (8-40); MCH 30.3 pg (25.7-33.7); MEAN CELL VOLUME 91.8 fl (80-96); MEAN PLT VOLUME 9.1 fl (7.5-11.1); MONO % 10.1 % (3.8-10.2); NEUT % 65.2 % (42.8-82.8); PLATELET COUNT 302 K/MM3 (134-434); RDW 13.4 % (11.9-15.9); WHITE BLOOD COUNT 9.6 K/mm3 (4.0-10.0)
--- NOTE | 2018-05-14 08:31 | PN ---
Progress Note (short form) - Note Progress Note: lying in bed in no acute distress. No fever today. Vital Signs Temperature 98.3 F 05/14/18 05:59 Pulse Rate 78 05/14/18 05:59 Respiratory Rate 20 05/14/18 05:59 Blood Pressure 110/50 05/14/18 05:59 O2 Sat by Pulse Oximetry (%) 96 05/13/18 21:00 CBCD WBC 9.6 K/mm3 (4.0-10.0) 05/14/18 06:20 RBC 2.60 M/mm3 (4.00-5.60) L 05/14/18 06:20 Hgb 7.9 GM/dL (11.7-16.9) L 05/14/18 06:20 Hct 23.9 % (35.4-49) L 05/14/18 06:20 MCV 91.8 fl (80-96) 05/14/18 06:20 MCHC 33.0 g/dl (32.0-35.9) 05/14/18 06:20 RDW 13.4 % (11.9-15.9) 05/14/18 06:20 Plt Count 302 K/MM3 (134-434) 05/14/18 06:20 MPV 9.1 fl (7.5-11.1) 05/14/18 06:20 CMP Sodium 142 mmol/L (136-145) 05/13/18 08:00 Potassium 4.0 mmol/L (3.5-5.1) 05/13/18 08:00 Chloride 110 mmol/L (98-107) H 05/13/18 08:00 Carbon Dioxide 23 mmol/L (21-32) 05/13/18 08:00 Anion Gap 9 MMOL/L (8-16) 05/13/18 08:00 BUN 25 mg/dL (7-18) H 05/13/18 08:00 Creatinine 1.0 mg/dL (0.7-1.3) 05/13/18 08:00 Creat Clearance w eGFR > 60 (>60) 05/13/18 08:00 Random Glucose 208 mg/dL (74-106) H 05/13/18 08:00 Calcium 8.0 mg/dL (8.5-10.1) L 08/31/18 08:00 Total Bilirubin 0.2 mg/dL (0.2-1.0) 05/05/18 18:55 AST 21 U/L (15-37) 05/05/18 18:55 ALT 28 U/L (12-78) 05/05/18 18:55 Alkaline Phosphatase 66 U/L (45-117) 05/05/18 18:55 Total Protein 7.5 g/dl (6.4-8.2) 05/05/18 18:55 Albumin 3.9 g/dl (3.4-5.0) 05/05/18 18:55 CARDIAC ENZYMES Creatine Kinase 146 IU/L (39-308) 05/06/18 07:15 Current Medications Generic Name Dose Route Start Last Admin Trade Name Freq PRN Reason Stop Dose Admin Acetaminophen 650 mg 05/08/18 22:37 05/13/18 10:22 Tylenol - PO 650 mg Q6H PRN Administration PAIN OR FEVER Aspirin 325 mg 05/07/18 08:00 05/13/18 10:15 Asa - PO 325 mg DAILY@0800 DAYAMI Administration Atorvastatin Calcium 20 mg 05/06/18 22:00 05/13/18 22:18 Lipitor - PO 20 mg HS DAYAMI Administration Colchicine 0.6 mg 05/06/18 22:00 05/13/18 22:18 Colcrys - PO 0.6 mg BID DAYAMI Administration Docusate Sodium 100 mg 05/07/18 17:00 05/11/18 23:10 Colace - PO 100 mg Q12H PRN Administration CONSTIPATION Sodium Chloride 1,000 mls @ 75 mls/hr 05/09/18 14:00 05/12/18 06:53 Normal Saline - IV 75 mls/hr ASDIR DAYAMI Administration Ertapenem 1 gm/ Sodium 50 mls @ 50 mls/hr 05/13/18 21:30 05/13/18 22:34 Chloride IVPB 50 mls/hr DAILY DAY[facility]I Administration Insulin Aspart 1 vial 05/09/18 22:00 05/14/18 06:12 Novolog Vial Sliding Scale - SQ 4 units ACHS DAYAMI Administration Protocol Oxycodone HCl 5 mg 05/11/18 11:49 05/12/18 18:54 Roxicodone - PO 5 mg Q4H PRN Administration PAIN LEVEL 4 - 6 Polyethylene Glycol 17 gm 05/13/18 12:00 05/14/18 06:12 Miralax (For Daily Use) - PO Not Given TID DAYAMI Primidone 125 mg 05/07/18 07:00 05/14/18 06:11 Mysoline - PO 125 mg AM DAYAMI Administration Primidone 250 mg 05/06/18 22:00 05/13/18 22:18 Mysoline - PO 250 mg HS DAYAMI Administration Senna 2 tab 05/09/18 11:41 05/12/18 14:10 Senna - PO 2 tab HS PRN Administration CONSTIPATION Topiramate 75 mg 05/06/18 22:00 05/13/18 22:19 Topamax - PO 75 mg BID DAYAMI Administration Home Medications Medication Instructions Recorded Colchicine 0.6 mg PO BID 05/05/18 Glipizide [Glipizide ER] 5 mg PO DAILY 05/05/18 Glipizide [Glipizide ER] 10 mg PO DAILY 05/05/18 Pioglitazone HCl [Actos] 30 mg PO DAILY 05/05/18 Primidone [Mysoline -] 250 mg PO HS 05/05/18 Primidone [Mysoline] 125 mg PO AM 05/05/18 Simvastatin 40 mg PO DAILY 05/05/18 Topiramate 75 mg PO BID 05/05/18 Triamterene/Hydrochlorothiazid 1 tab PO DAILY 05/05/18 [Triamterene-Hctz 37.5-25 mg Cp] Acetaminophen [Tylenol .Regular 650 mg PO Q6H PRN tablet 05/12/18 Strength -] Aspirin [ASA -] 325 mg PO DAILY@0800 tablet 05/12/18 Docusate Sodium [Colace -] 100 mg PO Q12H PRN capsule 05/12/18 Heparin - 5,000 unit SQ TID vial 05/12/18 Polyethylene Glycol 3350 [Miralax 17 gm PO BID bottle 05/12/18 119 gm Btl -] Sennosides [Senna -] 2 tab PO HS PRN tablet 05/12/18 oxyCODONE HCL [Roxicodone -] 5 mg PO Q6H PRN tablet MDD 4 05/12/18 Microbiology 05/09/18 12:25 Blood - Peripheral Venous Blood Culture - Preliminary NO GROWTH OBTAINED AFTER 96 HOURS, INCUBATION TO CONTINUE FOR 1 DAYS. 05/09/18 12:40 Blood - Peripheral Venous Blood Culture - Preliminary NO GROWTH OBTAINED AFTER 96 HOURS, INCUBATION TO CONTINUE FOR 1 DAYS. 05/12/18 12:30 Blood - Peripheral Venous Blood Culture - Preliminary NO GROWTH OBTAINED AFTER 24 HOURS, INCUBATION TO CONTINUE FOR 4 DAYS. 05/12/18 12:20 Blood - Peripheral Venous Blood Culture - Preliminary NO GROWTH OBTAINED AFTER 24 HOURS, INCUBATION TO CONTINUE FOR 4 DAYS. GENERAL: A&Ox3, NAD HEAD: NC/AT EYES: PERRLA, EOMI, no scleral icterus EARS, NOSE, THROAT: oropharynx clear without exudates. Moist mucous membranes. NECK: supple without lymphadenopathy LUNGS: CTA b/l, no crackles or wheezes HEART: Regular rate and rhythm, S1S2, mild systolic murmur at right sternal border ABDOMEN: Soft, NT/ND, normoactive bowel sounds MUSCULOSKELETAL: Right hip pain with movement, minimal pain on palpation, right leg externally rotated. No sacral ulcer. EXTREMITIES: 2+ pulses, warm, well-perfused. No calf tenderness. No peripheral edema. Surgical dressing on R hip, with no drainage or bleeding NEUROLOGICAL: CN II-XII grossly intact. Normal speech. 5/5 strength x RUE, LUE , LLE; RLE exam limited due to pain. PSYCHIATRIC: Cooperative. Good eye contact. Appropriate mood and affect. SKIN: Warm, dry, normal turgor, no rashes or lesions noted ASSESSMENT AND PLAN: 82 y/o man with h/o essential tremor, hyperlipidemia, gout, bilateral total knee replacement and Dm who presented with R hip fx after a mechanical fall. # Fever of unknown source for now, no cough, blood cx , UA urine Cx was ordered pending the result, discharge was held due to fever, ID on the case, added Rocephin will monitor. # Acute Right Femoral neck Fx: s/p R hip hemiarthroplasty continue pain meds; tylenol and oxycodone. PT on the case # Anemia: Iron w/u was ordered to evaluate the patient. # ALISIA: improving 1.4-->1.0 now s/p IVF # Essential Tremor: On Mysoline continue #H/o DM: cont SSI , hGA1c 7.5 , will place him back to his home meds. Glipizide and Actos # HLP: statin therapy continue with Lipitor # Hx of Gout on colchicine continue Dispo: for SNF when ready medically DVT PX: Heparin sq Discharge was held from Rehab due to having fever, negative w/u so far. Visit type - Emergency Visit Emergency Visit: Yes ED Registration Date: 05/05/18 Care time: The patient presented to the Emergency Department on the above date and was hospitalized for further evaluation of their emergent condition. - New Patient This patient is new to me today: No - Critical Care Critical Care patient: No - Discharge Referral Referred to [facility] Med P.C.: No
[2018-05-14 08:48] LABS: ANION GAP 8 MMOL/L (8-16); BLOOD UREA NITROGEN 23 mg/dL (7-18); CALCIUM 7.7 mg/dL (8.5-10.1); CHLORIDE 110 mmol/L (98-107); CO2 24 mmol/L (21-32); GLUCOSE,RANDOM 182 mg/dL (74-106); POTASSIUM 3.9 mmol/L (3.5-5.1); SODIUM 142 mmol/L (136-145)
[2018-05-14] MEDS ORDERED: PT OWN MED DRAWER 7, Y5N ONE ×2 (09:08→20:28)
[2018-05-14] MEDS: TOPIRAMATE 25 MG TABLET (FP) PO SCH ×2 (09:10→21:01)
[2018-05-14] MEDS: ASPIRIN 325 MG TABLET PO SCH (09:10)
[2018-05-14] MEDS: COLCHICINE 0.6 MG TABLET (FP) PO SCH ×2 (09:11→21:01)
[2018-05-14] MEDS: SODIUM CHLORIDE 1,000 ML IV SCH ×3 (09:54→23:45)
[2018-05-14] MEDS: ERTAPENEM SODIUM 1 GM in SODIUM CHLORIDE 50 ML IVPB SCH (09:54)
[2018-05-14 11:06] LABS: ANISOCYTOSIS 1+; MACROCYTOSIS 0; PLATELET ESTIMATE NORMAL
--- NOTE | 2018-05-14 12:40 | PN ---
Progress Note, Physician History of Present Illness: Pt seen and examined. Events noted. Has been started on antibiotics. Afebrile today and has no specific complaints. - Current Medication List Current Medications: Active Medications Acetaminophen (Tylenol -) 650 mg PO Q6H PRN PRN Reason: PAIN OR FEVER Last Admin: 05/13/18 10:22 Dose: 650 mg Aspirin (Asa -) 325 mg PO DAILY@0800 [facility] Last Admin: 05/14/18 09:10 Dose: 325 mg Atorvastatin Calcium (Lipitor -) 20 mg PO HS [facility] Last Admin: 05/13/18 22:18 Dose: 20 mg Colchicine (Colcrys -) 0.6 mg PO BID [facility] Last Admin: 05/14/18 09:11 Dose: 0.6 mg Docusate Sodium (Colace -) 100 mg PO Q12H PRN PRN Reason: CONSTIPATION Last Admin: 05/11/18 23:10 Dose: 100 mg Sodium Chloride (Normal Saline -) 1,000 mls @ 75 mls/hr IV ASDIR [facility] Last Admin: 05/14/18 09:54 Dose: 75 mls/hr Ertapenem 1 gm/ Sodium (Chloride) 50 mls @ 50 mls/hr IVPB DAILY [facility] Last Admin: 05/14/18 09:54 Dose: 50 mls/hr Insulin Aspart (Novolog Vial Sliding Scale -) 1 vial SQ ACHS [facility]; Protocol Last Admin: 05/14/18 11:52 Dose: 6 units Oxycodone HCl (Roxicodone -) 5 mg PO Q4H PRN PRN Reason: PAIN LEVEL 4 - 6 Last Admin: 05/12/18 18:54 Dose: 5 mg Polyethylene Glycol (Miralax (For Daily Use) -) 17 gm PO TID [facility] Last Admin: 05/14/18 06:12 Dose: Not Given Primidone (Mysoline -) 125 mg PO AM [facility] Last Admin: 05/14/18 06:11 Dose: 125 mg Primidone (Mysoline -) 250 mg PO HS [facility] Last Admin: 05/13/18 22:18 Dose: 250 mg Senna (Senna -) 2 tab PO HS PRN PRN Reason: CONSTIPATION Last Admin: 05/12/18 14:10 Dose: 2 tab Topiramate (Topamax -) 75 mg PO BID [facility] Last Admin: 05/14/18 09:10 Dose: 75 mg - Objective Vital Signs: Vital Signs Temperature 98.9 F 05/14/18 10:00 Pulse Rate 77 05/14/18 10:00 Respiratory Rate 20 05/14/18 10:00 Blood Pressure 102/49 05/14/18 10:00 O2 Sat by Pulse Oximetry (%) 96 05/13/18 21:00 Constitutional: Yes: No Distress, Calm Cardiovascular: Yes: Regular Rate and Rhythm Respiratory: Yes: Regular Gastrointestinal: Yes: Normal Bowel Sounds, Soft Genitourinary: Yes: WNL Wound/Incision: Yes: Dressing Dry and Intact (Rt hip) Neurological: Yes: Alert, Oriented Labs: CBC, BMP 05/14/18 06:20 05/14/18 06:20 INR, PTT INR 1.04 (0.83-1.09) 05/05/18 19:31 Microbiology 05/12/18 12:30 Blood - Peripheral Venous Blood Culture - Preliminary NO GROWTH OBTAINED AFTER 48 HOURS, INCUBATION TO CONTINUE FOR 3 DAYS. 05/12/18 12:20 Blood - Peripheral Venous Blood Culture - Preliminary NO GROWTH OBTAINED AFTER 48 HOURS, INCUBATION TO CONTINUE FOR 3 DAYS. 05/13/18 09:00 Urine - Urine Clean Catch Urine Culture - Preliminary Proteus Species 05/09/18 12:25 Blood - Peripheral Venous Blood Culture - Preliminary NO GROWTH OBTAINED AFTER 96 HOURS, INCUBATION TO CONTINUE FOR 1 DAYS. 05/09/18 12:40 Blood - Peripheral Venous Blood Culture - Preliminary NO GROWTH OBTAINED AFTER 96 HOURS, INCUBATION TO CONTINUE FOR 1 DAYS. Problem List - Problems (1) Anemia Code(s): D64.9 - ANEMIA, UNSPECIFIED (2) Hip fracture Code(s): S72.009A - FRACTURE OF UNSP PART OF NECK OF UNSP FEMUR, INIT Assessment/Plan 82 y.o. male with PMH of DM, HLD, b/l TKA presented s/p mechanical fall and is s /p Rt THR noted to have persistent fevers Fever, Possible Proteus UTI Rt femur fracture, s/p Rt THR DM -- cont. empiric antibiotics, no allergic reaction noted -- f/u urine culture results continue monitor temperature trends appears clinically stable at this time
[2018-05-14] MEDS: ATORVASTATIN CA 20 MG TABLET (FP) PO SCH (21:01)
[2018-05-15] MEDS: PRIMIDONE 250 MG TABLET PO SCH ×2 (06:06→22:13)
[2018-05-15] MEDS: POLYETHYLENE GLYCOL 3350 119 GM BTL PO SCH ×4 (06:07→22:20)
[2018-05-15] MEDS: INSULIN SLIDING SCALE (NOVOLOG) 1 VIAL SQ SCH ×4 (06:34→22:10)
[2018-05-15 06:36] LABS: SERUM IRON SATURATION 38 % (15-55); TOTAL IRON BINDING CAPACITY 169 ug/dL (250-450); UIBC 104 ug/dL (111-343)
[2018-05-15] MEDS: ASPIRIN 325 MG TABLET PO SCH (08:40)
[2018-05-15] MEDS: COLCHICINE 0.6 MG TABLET (FP) PO SCH ×2 (09:30→22:06)
[2018-05-15] MEDS: TOPIRAMATE 25 MG TABLET (FP) PO SCH ×2 (09:30→22:06)
--- NOTE | 2018-05-15 10:32 | PN ---
Physical Exam: SUBJECTIVE: Patient seen and examined. Pt requesting transfer to rehab. Feels better, T improving. Pain controlled on meds. Urine cx growing proteus, no sensitivities yet. OBJECTIVE: Vital Signs Period Temp Pulse Resp BP Sys/Hill Pulse Ox Last 24 Hr 98.2 F-98.9 F 72-78 19-20 103-119/52-60 93 Vital Signs Temp 98.9 F 05/15/18 09:00 Pulse 77 05/15/18 09:00 Resp 20 05/15/18 09:00 BP 110/53 05/15/18 09:00 Pulse Ox 93 L 05/15/18 09:00 Intake & Output 05/14/18 05/14/18 05/15/18 11:59 23:59 11:59 Intake Total 1400 1115 900 Balance 1400 1115 900 Intake: IV 900 825 900 Normal Saline - 1,000 ml 900 825 900 @ 75 mls/hr IV ASDIR [facility] Rx#:[id number] IVPB 50 Oral 500 240 Other: Voiding Method Urinal Incontinent # Unmeasured Voids Void 2 2 Bowel Movement No No GENERAL: The patient is awake, alert, and fully oriented, in no acute distress. HEAD: Normal with no signs of trauma. EYES: extraocular movements intact, sclera anicteric, conjunctiva clear. ENT: oropharynx clear without exudates, moist mucous membranes. NECK: supple. LUNGS: Breath sounds equal, clear to auscultation bilaterally HEART: Regular rate and rhythm, S1, S2 ABDOMEN: Soft, nontender, nondistended, normoactive bowel sounds EXTREMITIES: R hip dressing intact, clean dry. No erythema, or swelling. 2+ pulses, warm, well-perfused, no edema. NEUROLOGICAL: Cranial nerves II through XII grossly intact. Normal speech, gait not observed. PSYCH: Normal mood, normal affect. CBC, BMP 05/14/18 06:20 05/14/18 06:20 Laboratory Results - last 24 hr 05/14/18 05/14/18 05/14/18 06:20 06:20 11:41 Neutrophils % (Manual) 67.0 Band Neutrophils % 0.0 Lymphocytes % (Manual) 16.5 Monocytes % (Manual) 6 Eosinophils % (Manual) 9.7 H Basophils % (Manual) 1.0 Myelocytes % (Man) 0 Promyelocytes % (Man) 0 Blast Cells % (Manual) 0 Nucleated RBC % 0 Metamyelocytes 0 Hypochromia 0 Platelet Estimate Normal Polychromasia 1+ Poikilocytosis 0 Anisocytosis 1+ Microcytosis 1+ Macrocytosis 0 POC Glucometer 273 Iron 65 TIBC 169 L Iron Saturation 38 05/14/18 05/14/18 05/15/18 17:00 21:39 05:55 Neutrophils % (Manual) Band Neutrophils % Lymphocytes % (Manual) Monocytes % (Manual) Eosinophils % (Manual) Basophils % (Manual) Myelocytes % (Man) Promyelocytes % (Man) Blast Cells % (Manual) Nucleated RBC % Metamyelocytes Hypochromia Platelet Estimate Polychromasia Poikilocytosis Anisocytosis Microcytosis Macrocytosis POC Glucometer 179 220 223 Iron TIBC Iron Saturation Active Medications Generic Name Dose Route Start Last Admin Trade Name Freq PRN Reason Stop Dose Admin Acetaminophen 650 mg 05/08/18 22:37 05/13/18 10:22 Tylenol - PO 650 mg Q6H PRN Administration PAIN OR FEVER Aspirin 325 mg 05/07/18 08:00 05/15/18 08:40 Asa - PO 325 mg DAILY@0800 [facility] Administration Atorvastatin Calcium 20 mg 05/06/18 22:00 05/14/18 21:01 Lipitor - PO 20 mg HS [facility] Administration Colchicine 0.6 mg 05/06/18 22:00 05/15/18 09:30 Colcrys - PO 0.6 mg BID [facility] Administration Docusate Sodium 100 mg 05/07/18 17:00 05/11/18 23:10 Colace - PO 100 mg Q12H PRN Administration CONSTIPATION Sodium Chloride 1,000 mls @ 75 mls/hr 05/09/18 14:00 05/14/18 23:45 Normal Saline - IV 75 mls/hr ASDIR [facility] Administration Ertapenem 1 gm/ Sodium 50 mls @ 50 mls/hr 05/13/18 21:30 05/14/18 09:54 Chloride IVPB 50 mls/hr DAILY [facility] Administration Insulin Aspart 1 vial 05/09/18 22:00 05/15/18 06:34 Novolog Vial Sliding Scale - SQ 4 units ACHS [facility] Administration Protocol Oxycodone HCl 5 mg 05/11/18 11:49 05/12/18 18:54 Roxicodone - PO 5 mg Q4H PRN Administration PAIN LEVEL 4 - 6 Polyethylene Glycol 17 gm 05/13/18 12:00 05/15/18 06:07 Miralax (For Daily Use) - PO 17 gm TID [facility] Administration Primidone 125 mg 05/07/18 07:00 05/15/18 06:06 Mysoline - PO 125 mg AM [facility] Administration Primidone 250 mg 05/06/18 22:00 05/14/18 21:02 Mysoline - PO 250 mg HS [facility] Administration Senna 2 tab 05/09/18 11:41 05/12/18 14:10 Senna - PO 2 tab HS PRN Administration CONSTIPATION Topiramate 75 mg 05/06/18 22:00 05/15/18 09:30 Topamax - PO 75 mg BID [facility] Administration Microbiology 05/12/18 12:30 Blood - Peripheral Venous Blood Culture - Preliminary NO GROWTH OBTAINED AFTER 72 HOURS, INCUBATION TO CONTINUE FOR 2 DAYS. 05/12/18 12:20 Blood - Peripheral Venous Blood Culture - Preliminary NO GROWTH OBTAINED AFTER 72 HOURS, INCUBATION TO CONTINUE FOR 2 DAYS. 05/09/18 12:25 Blood - Peripheral Venous Blood Culture - Final NO GROWTH AFTER 5 DAYS INCUBATION 05/09/18 12:40 Blood - Peripheral Venous Blood Culture - Final NO GROWTH AFTER 5 DAYS INCUBATION 05/13/18 09:00 Urine - Urine Clean Catch Urine Culture - Preliminary Proteus Species ASSESSMENT/PLAN: 82 y/o M w/ PMHx NIDDM, essential tremor admitted with R hip fx, now s/p R hip hemiarthroplasty #Right Hip Fracture; s/p R hip marion, POD #9. - No more fevers - No growth - on BCx - tylenol for pain - ID consulted (Dr. Bryant) - UCx - proteus, pending sensitivities - per Dr. Bryant - d/c will be to [facility], SW is on board and facility placement ready #Fever -secondary to UTI - Cont ertapenem (05/13)- day 3 #anemia - H/H 7.9 (05/14), pt is on colchicine, has no CAD hx, transfusion treshold- 7, monitor, CBC in am - Dr Shelby on board, for colonoscopy and EGD - FOBT positive #constipation - resolved - miralax BID #NIDDM - repeat HbA1c = 7.5 - BGMs - ISS - hold home meds #Essential Tremor - Topiramate 25 mg PO QD - Primidone 250 mg 1/2 tab qAM and 1 tab qHS #HLD - Atorvastatin 20 mg PO HS #ALISIA - Cr 1.1, stable/resolved - NS @ 75 - encourage oral hydration #hx of gout -colchicine 0.6 mg BID #DVT Prophylaxis - Heparin 5000U SQ TID #FEN - Fluids: NS @ 75 cc/hr - Electrolytes: No electrolyte abnormalities, BMP in AM - Nutrition: Diabetic diet #Dispo - Med/Surg - SNF after d/c pending sensitivities for Ucx, SW is on board and facility placement ready Visit type Visit type - Emergency Visit Emergency Visit: Yes ED Registration Date: 05/05/18 Care time: The patient presented to the Emergency Department on the above date and was hospitalized for further evaluation of their emergent condition. - New Patient This patient is new to me today: Yes Date on this admission: 05/15/18 - Critical Care Critical Care patient: No - Discharge Referral Referred to [facility] Med P.C.: No
[2018-05-15] MEDS: ERTAPENEM SODIUM 1 GM in SODIUM CHLORIDE 50 ML IVPB SCH (11:27)
[2018-05-15 13:31] LABS: HEMATOCRIT 25.2 % (35.4-49); HEMOGLOBIN 8.3 GM/dL (11.7-16.9); MCH 30.3 pg (25.7-33.7); MCHC 33.1 g/dl (32.0-35.9); MEAN CELL VOLUME 91.6 fl (80-96); MEAN PLT VOLUME 8.8 fl (7.5-11.1); PLATELET COUNT 348 K/MM3 (134-434); RBC 2.75 M/mm3 (4.00-5.60); RDW 13.6 % (11.9-15.9); WHITE BLOOD COUNT 9.1 K/mm3 (4.0-10.0)
--- NOTE | 2018-05-15 15:26 | PN ---
Teaching Attending Note Name of Resident: Mariela Calvin ATTENDING PHYSICIAN STATEMENT I saw and evaluated the patient. I reviewed the resident's note and discussed the case with the resident. I agree with the resident's findings and plan as documented. SUBJECTIVE: Patient is comfortable with no acute distress, no shortness of breath. OBJECTIVE: Vital Signs Temperature 99.4 F 05/15/18 14:28 Pulse Rate 71 05/15/18 14:28 Respiratory Rate 20 05/15/18 14:28 Blood Pressure 108/57 05/15/18 14:28 O2 Sat by Pulse Oximetry (%) 93 L 05/15/18 09:00 CBCD WBC 9.1 K/mm3 (4.0-10.0) 05/15/18 13:15 RBC 2.75 M/mm3 (4.00-5.60) L 05/15/18 13:15 Hgb 8.3 GM/dL (11.7-16.9) L 05/15/18 13:15 Hct 25.2 % (35.4-49) L 05/15/18 13:15 MCV 91.6 fl (80-96) 05/15/18 13:15 MCHC 33.1 g/dl (32.0-35.9) 05/15/18 13:15 RDW 13.6 % (11.9-15.9) 05/15/18 13:15 Plt Count 348 K/MM3 (134-434) 05/15/18 13:15 MPV 8.8 fl (7.5-11.1) 05/15/18 13:15 CMP Sodium 142 mmol/L (136-145) 05/14/18 06:20 Potassium 3.9 mmol/L (3.5-5.1) 05/14/18 06:20 Chloride 110 mmol/L (98-107) H 05/14/18 06:20 Carbon Dioxide 24 mmol/L (21-32) 05/14/18 06:20 Anion Gap 8 MMOL/L (8-16) 05/14/18 06:20 BUN 23 mg/dL (7-18) H 05/14/18 06:20 Creatinine 1.0 mg/dL (0.7-1.3) 05/14/18 06:20 Creat Clearance w eGFR > 60 (>60) 09/01/18 06:20 Random Glucose 182 mg/dL (74-106) H 05/14/18 06:20 Calcium 7.7 mg/dL (8.5-10.1) L 05/14/18 06:20 Total Bilirubin 0.2 mg/dL (0.2-1.0) 05/05/18 18:55 AST 21 U/L (15-37) 05/05/18 18:55 ALT 28 U/L (12-78) 05/05/18 18:55 Alkaline Phosphatase 66 U/L (45-117) 05/05/18 18:55 Total Protein 7.5 g/dl (6.4-8.2) 05/05/18 18:55 Albumin 3.9 g/dl (3.4-5.0) 05/05/18 18:55 CARDIAC ENZYMES Creatine Kinase 146 IU/L (39-308) 05/06/18 07:15 Current Medications Generic Name Dose Route Start Last Admin Trade Name Freq PRN Reason Stop Dose Admin Acetaminophen 650 mg 05/08/18 22:37 05/13/18 10:22 Tylenol - PO 650 mg Q6H PRN Administration PAIN OR FEVER Aspirin 325 mg 05/07/18 08:00 05/15/18 08:40 Asa - PO 325 mg DAILY@0800 [facility] Administration Atorvastatin Calcium 20 mg 05/06/18 22:00 05/14/18 21:01 Lipitor - PO 20 mg HS [facility] Administration Colchicine 0.6 mg 05/06/18 22:00 05/15/18 09:30 Colcrys - PO 0.6 mg BID [facility] Administration Docusate Sodium 100 mg 05/07/18 17:00 05/11/18 23:10 Colace - PO 100 mg Q12H PRN Administration CONSTIPATION Sodium Chloride 1,000 mls @ 75 mls/hr 05/09/18 14:00 05/14/18 23:45 Normal Saline - IV 75 mls/hr ASDIR [facility] Administration Ertapenem 1 gm/ Sodium 50 mls @ 50 mls/hr 05/13/18 21:30 05/15/18 11:27 Chloride IVPB 50 mls/hr DAILY [facility] Administration Insulin Aspart 1 vial 05/09/18 22:00 05/15/18 11:26 Novolog Vial Sliding Scale - SQ 6 units ACHS [facility] Administration Protocol Oxycodone HCl 5 mg 05/11/18 11:49 05/12/18 18:54 Roxicodone - PO 5 mg Q4H PRN Administration PAIN LEVEL 4 - 6 Polyethylene Glycol 17 gm 05/13/18 12:00 05/15/18 15:19 Miralax (For Daily Use) - PO 17 gm TID [facility] Administration Primidone 125 mg 05/07/18 07:00 05/15/18 06:06 Mysoline - PO 125 mg AM [facility] Administration Primidone 250 mg 05/06/18 22:00 05/14/18 21:02 Mysoline - PO 250 mg HS [facility] Administration Senna 2 tab 05/09/18 11:41 05/12/18 14:10 Senna - PO 2 tab HS PRN Administration CONSTIPATION Topiramate 75 mg 05/06/18 22:00 05/15/18 09:30 Topamax - PO 75 mg BID [facility] Administration Home Medications Medication Instructions Recorded Colchicine 0.6 mg PO BID 05/05/18 Glipizide [Glipizide ER] 5 mg PO DAILY 05/05/18 Glipizide [Glipizide ER] 10 mg PO DAILY 05/05/18 Pioglitazone HCl [Actos] 30 mg PO DAILY 05/05/18 Primidone [Mysoline -] 250 mg PO HS 05/05/18 Primidone [Mysoline] 125 mg PO AM 05/05/18 Simvastatin 40 mg PO DAILY 05/05/18 Topiramate 75 mg PO BID 05/05/18 Triamterene/Hydrochlorothiazid 1 tab PO DAILY 05/05/18 [Triamterene-Hctz 37.5-25 mg Cp] Acetaminophen [Tylenol .Regular 650 mg PO Q6H PRN tablet 05/12/18 Strength -] Aspirin [ASA -] 325 mg PO DAILY@0800 tablet 05/12/18 Docusate Sodium [Colace -] 100 mg PO Q12H PRN capsule 05/12/18 Heparin - 5,000 unit SQ TID vial 05/12/18 Polyethylene Glycol 3350 [Miralax 17 gm PO BID bottle 05/12/18 119 gm Btl -] Sennosides [Senna -] 2 tab PO HS PRN tablet 05/12/18 oxyCODONE HCL [Roxicodone -] 5 mg PO Q6H PRN tablet MDD 4 05/12/18 Selected Entries 05/12/18 05/12/18 05/12/18 05:00 14:00 18:00 Temperature 99.9 F H 101.3 F H 101.2 F H 05/12/18 05/13/18 05/13/18 22:00 02:04 22:00 Temperature 101.7 F H 98.9 F 98.2 F 05/14/18 05/14/18 05/14/18 01:51 05:59 10:00 Temperature 98.7 F 98.3 F 98.9 F 05/14/18 05/14/18 05/15/18 18:00 22:00 05:22 Temperature 98.8 F 98.5 F 98.2 F 05/15/18 05/15/18 09:00 14:28 Temperature 98.9 F 99.4 F Microbiology 05/12/18 12:30 Blood - Peripheral Venous Blood Culture - Preliminary NO GROWTH OBTAINED AFTER 72 HOURS, INCUBATION TO CONTINUE FOR 2 DAYS. 05/12/18 12:20 Blood - Peripheral Venous Blood Culture - Preliminary NO GROWTH OBTAINED AFTER 72 HOURS, INCUBATION TO CONTINUE FOR 2 DAYS. 05/09/18 12:25 Blood - Peripheral Venous Blood Culture - Final NO GROWTH AFTER 5 DAYS INCUBATION 05/09/18 12:40 Blood - Peripheral Venous Blood Culture - Final NO GROWTH AFTER 5 DAYS INCUBATION 05/13/18 09:00 Urine - Urine Clean Catch Urine Culture - Preliminary Proteus Species PE: per resident's note ASSESSMENT AND PLAN: 82 y/o man with h/o essential tremor, hyperlipidemia, gout, bilateral total knee replacement and Dm who presented with R hip fx after a mechanical fall. # Acute UTI; due to Proteus Species , blood cx no growth so far, UA urine Cx is positive for Proteus Species , pending sensitivity, on ERtapenem, once sensitivity is back then we can discharge the patient to rehab. ID on the case. # Acute Right Femoral neck Fx: s/p R hip hemiarthroplasty continue pain meds; tylenol and oxycodone. PT on the case # Anemia: Iron w/u was ordered to evaluate the patient. # ALISIA: improved 1.4-->1.0 now s/p IVF # Essential Tremor: On Mysoline continue #H/o DM: cont SSI , hGA1c 7.5 , will place him back to his home meds. Glipizide and Actos # HLP: statin therapy continue with Lipitor # Hx of Gout on colchicine continue Dispo: for SNF when ready medically DVT PX: Heparin sq Discharge was held from Rehab due to having fever, positive for UTI waiting for the sensitivity
--- NOTE | 2018-05-15 16:23 | PN ---
Progress Note, Physician History of Present Illness: Pt is alert, states he feels well. Temp 99.F Has no new complaints. - Current Medication List Current Medications: Active Medications Acetaminophen (Tylenol -) 650 mg PO Q6H PRN PRN Reason: PAIN OR FEVER Last Admin: 05/13/18 10:22 Dose: 650 mg Aspirin (Asa -) 325 mg PO DAILY@0800 [facility] Last Admin: 05/15/18 08:40 Dose: 325 mg Atorvastatin Calcium (Lipitor -) 20 mg PO HS [facility] Last Admin: 05/14/18 21:01 Dose: 20 mg Colchicine (Colcrys -) 0.6 mg PO BID [facility] Last Admin: 05/15/18 09:30 Dose: 0.6 mg Docusate Sodium (Colace -) 100 mg PO Q12H PRN PRN Reason: CONSTIPATION Last Admin: 05/11/18 23:10 Dose: 100 mg Sodium Chloride (Normal Saline -) 1,000 mls @ 75 mls/hr IV ASDIR [facility] Last Admin: 05/14/18 23:45 Dose: 75 mls/hr Ertapenem 1 gm/ Sodium (Chloride) 50 mls @ 50 mls/hr IVPB DAILY [facility] Last Admin: 05/15/18 11:27 Dose: 50 mls/hr Insulin Aspart (Novolog Vial Sliding Scale -) 1 vial SQ ACHS [facility]; Protocol Last Admin: 05/15/18 11:26 Dose: 6 units Oxycodone HCl (Roxicodone -) 5 mg PO Q4H PRN PRN Reason: PAIN LEVEL 4 - 6 Last Admin: 05/12/18 18:54 Dose: 5 mg Polyethylene Glycol (Miralax (For Daily Use) -) 17 gm PO TID [facility] Last Admin: 05/15/18 15:19 Dose: 17 gm Primidone (Mysoline -) 125 mg PO AM [facility] Last Admin: 05/15/18 06:06 Dose: 125 mg Primidone (Mysoline -) 250 mg PO HS [facility] Last Admin: 05/14/18 21:02 Dose: 250 mg Senna (Senna -) 2 tab PO HS PRN PRN Reason: CONSTIPATION Last Admin: 05/12/18 14:10 Dose: 2 tab Topiramate (Topamax -) 75 mg PO BID [facility] Last Admin: 05/15/18 09:30 Dose: 75 mg - Objective Vital Signs: Vital Signs Temperature 99.4 F 05/15/18 14:28 Pulse Rate 71 05/15/18 14:28 Respiratory Rate 20 05/15/18 14:28 Blood Pressure 108/57 05/15/18 14:28 O2 Sat by Pulse Oximetry (%) 93 L 05/15/18 09:00 Constitutional: Yes: No Distress, Calm Cardiovascular: Yes: Regular Rate and Rhythm Respiratory: Yes: Regular Gastrointestinal: Yes: Normal Bowel Sounds, Soft Genitourinary: Yes: WNL Musculoskeletal: Yes: WNL Wound/Incision: Yes: Dressing Dry and Intact Neurological: Yes: Alert, Oriented Labs: CBC, BMP 05/15/18 13:15 05/14/18 06:20 INR, PTT INR 1.04 (0.83-1.09) 05/05/18 19:31 Microbiology 05/13/18 09:00 Urine - Urine Clean Catch Urine Culture - Final Proteus Species 05/12/18 12:30 Blood - Peripheral Venous Blood Culture - Preliminary NO GROWTH OBTAINED AFTER 72 HOURS, INCUBATION TO CONTINUE FOR 2 DAYS. 05/12/18 12:20 Blood - Peripheral Venous Blood Culture - Preliminary NO GROWTH OBTAINED AFTER 72 HOURS, INCUBATION TO CONTINUE FOR 2 DAYS. 05/09/18 12:25 Blood - Peripheral Venous Blood Culture - Final NO GROWTH AFTER 5 DAYS INCUBATION 05/09/18 12:40 Blood - Peripheral Venous Blood Culture - Final NO GROWTH AFTER 5 DAYS INCUBATION Problem List - Problems (1) Anemia Code(s): D64.9 - ANEMIA, UNSPECIFIED (2) Hip fracture Code(s): S72.009A - FRACTURE OF UNSP PART OF NECK OF UNSP FEMUR, INIT Assessment/Plan 82 y.o. male with PMH of DM, HLD, b/l TKA presented s/p mechanical fall and is s /p Rt THR noted to have persistent fevers Proteus UTI Rt femur fracture, s/p Rt THR DM -- fevers appear to be resolving, cont. empiric antibiotics for now -- f/u urine culture results, plan to switch to po if possible continue monitor temperature trends
[2018-05-15] MEDS: ATORVASTATIN CA 20 MG TABLET (FP) PO SCH (22:06)
[2018-05-15] MEDS ORDERED: PT OWN MED DRAWER 7, Y5N ONE (22:12)
[2018-05-16] MEDS: PRIMIDONE 250 MG TABLET PO SCH ×2 (06:36→22:25)
[2018-05-16] MEDS: SODIUM CHLORIDE 1,000 ML IV SCH ×2 (06:36→16:40)
[2018-05-16] MEDS: POLYETHYLENE GLYCOL 3350 119 GM BTL PO SCH ×3 (06:37→22:01)
[2018-05-16] MEDS: INSULIN SLIDING SCALE (NOVOLOG) 1 VIAL SQ SCH ×4 (06:41→22:01)
[2018-05-16] MEDS: ASPIRIN 325 MG TABLET PO SCH (07:55)
[2018-05-16 08:39] LABS: CHLORIDE 111 mmol/L (98-107); POTASSIUM 4.2 mmol/L (3.5-5.1); SODIUM 143 mmol/L (136-145)
[2018-05-16 08:52] LABS: ALK PHOS 133 U/L (45-117); ANION GAP 10 MMOL/L (8-16); BILIRUBIN,TOTAL 0.4 mg/dL (0.2-1.0); BLOOD UREA NITROGEN 24 mg/dL (7-18); CALCIUM 7.8 mg/dL (8.5-10.1); CO2 22 mmol/L (21-32); CREATININE 0.9 mg/dL (0.7-1.3); GLUCOSE,RANDOM 199 mg/dL (74-106); MAGNESIUM 2.1 mg/dL (1.8-2.4); PHOSPHOROUS 2.7 mg/dL (2.5-4.9); SGOT/AST 204 U/L (15-37); SGPT/ALT 252 U/L (12-78); TOT PROT 5.2 g/dl (6.4-8.2)
[2018-05-16] MEDS ORDERED: PT OWN MED DRAWER 7, Y5N ONE (09:36)
[2018-05-16] MEDS: COLCHICINE 0.6 MG TABLET (FP) PO SCH ×2 (09:41→22:01)
[2018-05-16] MEDS: TOPIRAMATE 25 MG TABLET (FP) PO SCH ×2 (09:41→22:00)
[2018-05-16] MEDS: ERTAPENEM SODIUM 1 GM in SODIUM CHLORIDE 50 ML IVPB SCH (09:41)
--- NOTE | 2018-05-16 09:46 | PN ---
Progress Note (short form) - Note Progress Note: AVSS COMFORTABLE BANDAGES DRY AND INTACT CALF SOFT AND NT, NVI IMP: ORTHOPEDICALLY STABLE DC WHEN MEDICALLY OK
--- NOTE | 2018-05-16 11:08 | PN ---
Progress Note, Physician History of Present Illness: Pt alert, without new complaints. Tmax 99.4F, tolerating antibiotics. - Current Medication List Current Medications: Active Medications Acetaminophen (Tylenol -) 650 mg PO Q6H PRN PRN Reason: PAIN OR FEVER Last Admin: 05/13/18 10:22 Dose: 650 mg Aspirin (Asa -) 325 mg PO DAILY@0800 [facility] Last Admin: 05/16/18 07:55 Dose: 325 mg Atorvastatin Calcium (Lipitor -) 20 mg PO HS [facility] Last Admin: 05/15/18 22:06 Dose: 20 mg Colchicine (Colcrys -) 0.6 mg PO BID [facility] Last Admin: 05/16/18 09:41 Dose: 0.6 mg Docusate Sodium (Colace -) 100 mg PO Q12H PRN PRN Reason: CONSTIPATION Last Admin: 05/11/18 23:10 Dose: 100 mg Sodium Chloride (Normal Saline -) 1,000 mls @ 75 mls/hr IV ASDIR [facility] Last Admin: 05/16/18 06:36 Dose: 75 mls/hr Ertapenem 1 gm/ Sodium (Chloride) 50 mls @ 50 mls/hr IVPB DAILY [facility] Last Admin: 05/16/18 09:41 Dose: 50 mls/hr Insulin Aspart (Novolog Vial Sliding Scale -) 1 vial SQ ACHS [facility]; Protocol Last Admin: 05/16/18 06:41 Dose: 6 units Oxycodone HCl (Roxicodone -) 5 mg PO Q4H PRN PRN Reason: PAIN LEVEL 4 - 6 Last Admin: 05/12/18 18:54 Dose: 5 mg Polyethylene Glycol (Miralax (For Daily Use) -) 17 gm PO TID [facility] Last Admin: 05/16/18 06:37 Dose: 17 gm Primidone (Mysoline -) 125 mg PO AM [facility] Last Admin: 05/16/18 06:36 Dose: 125 mg Primidone (Mysoline -) 250 mg PO HS [facility] Last Admin: 05/15/18 22:13 Dose: 250 mg Senna (Senna -) 2 tab PO HS PRN PRN Reason: CONSTIPATION Last Admin: 05/12/18 14:10 Dose: 2 tab Topiramate (Topamax -) 75 mg PO BID [facility] Last Admin: 05/16/18 09:41 Dose: 75 mg - Objective Vital Signs: Vital Signs Temperature 99.2 F 05/16/18 09:25 Pulse Rate 76 05/16/18 09:25 Respiratory Rate 20 05/16/18 09:25 Blood Pressure 123/68 05/16/18 09:25 O2 Sat by Pulse Oximetry (%) 94 L 05/15/18 21:00 Constitutional: Yes: No Distress Cardiovascular: Yes: Regular Rate and Rhythm Respiratory: Yes: Regular Gastrointestinal: Yes: Normal Bowel Sounds, Soft Genitourinary: Yes: WNL Wound/Incision: Yes: Clean/Dry Neurological: Yes: Alert Labs: CBC, BMP 05/15/18 13:15 05/16/18 07:15 INR, PTT INR 1.04 (0.83-1.09) 05/05/18 19:31 Microbiology 05/13/18 09:00 Urine - Urine Clean Catch Urine Culture - Preliminary Proteus Species 05/12/18 12:30 Blood - Peripheral Venous Blood Culture - Preliminary NO GROWTH OBTAINED AFTER 72 HOURS, INCUBATION TO CONTINUE FOR 2 DAYS. 05/12/18 12:20 Blood - Peripheral Venous Blood Culture - Preliminary NO GROWTH OBTAINED AFTER 72 HOURS, INCUBATION TO CONTINUE FOR 2 DAYS. 05/09/18 12:25 Blood - Peripheral Venous Blood Culture - Final NO GROWTH AFTER 5 DAYS INCUBATION 05/09/18 12:40 Blood - Peripheral Venous Blood Culture - Final NO GROWTH AFTER 5 DAYS INCUBATION Problem List - Problems (1) Anemia Code(s): D64.9 - ANEMIA, UNSPECIFIED (2) Hip fracture Code(s): S72.009A - FRACTURE OF UNSP PART OF NECK OF UNSP FEMUR, INIT Assessment/Plan 82 y.o. male with PMH of DM, HLD, b/l TKA presented s/p mechanical fall and is s /p Rt THR noted to have persistent fevers Proteus UTI Rt femur fracture, s/p Rt THR DM -- called microbiology lab for final urine results - susceptibilities still pending -- plan switch to po based on results -- cont. current antibiotics continue monitor temperature- decreasing trend
--- NOTE | 2018-05-16 13:19 | PN ---
Progress Note (short form) - Note Progress Note: Patient is feeling better, brother at bedside. Vital Signs Temperature 99.2 F 05/16/18 09:25 Pulse Rate 76 05/16/18 09:25 Respiratory Rate 20 05/16/18 09:25 Blood Pressure 123/68 05/16/18 09:25 O2 Sat by Pulse Oximetry (%) 94 L 05/16/18 09:00 Constitutional: Yes: Well Nourished, No Distress, Calm Eyes: Yes: Conjunctiva Clear HENT: Yes: Atraumatic Neck: Yes: Supple Cardiovascular: Yes: Regular Rate and Rhythm Respiratory: Yes: Regular Gastrointestinal Inspection: soft, No Ascites, Distention, Normoactive Bowel Sounds Neurological: Yes: Alert EXtremities: positive for pulses Bl, wound is clean on the right hip. CBCD WBC 9.1 K/mm3 (4.0-10.0) 05/15/18 13:15 RBC 2.75 M/mm3 (4.00-5.60) L 05/15/18 13:15 Hgb 8.3 GM/dL (11.7-16.9) L 05/15/18 13:15 Hct 25.2 % (35.4-49) L 05/15/18 13:15 MCV 91.6 fl (80-96) 05/15/18 13:15 MCHC 33.1 g/dl (32.0-35.9) 05/15/18 13:15 RDW 13.6 % (11.9-15.9) 05/15/18 13:15 Plt Count 348 K/MM3 (134-434) 05/15/18 13:15 MPV 8.8 fl (7.5-11.1) 05/15/18 13:15 CMP Sodium 143 mmol/L (136-145) 05/16/18 07:15 Potassium 4.2 mmol/L (3.5-5.1) 05/16/18 07:15 Chloride 111 mmol/L (98-107) H 05/16/18 07:15 Carbon Dioxide 22 mmol/L (21-32) 05/16/18 07:15 Anion Gap 10 MMOL/L (8-16) 05/16/18 07:15 BUN 24 mg/dL (7-18) H 05/16/18 07:15 Creatinine 0.9 mg/dL (0.7-1.3) 05/16/18 07:15 Creat Clearance w eGFR > 60 (>60) 05/16/18 07:15 Random Glucose 199 mg/dL (74-106) H 05/16/18 07:15 Calcium 7.8 mg/dL (8.5-10.1) L 05/16/18 07:15 Total Bilirubin 0.4 mg/dL (0.2-1.0) 05/16/18 07:15 AST 204 U/L (15-37) H D 05/16/18 07:15 ALT 252 U/L (12-78) H D 05/16/18 07:15 Alkaline Phosphatase 133 U/L (45-117) H D 05/16/18 07:15 Total Protein 5.2 g/dl (6.4-8.2) L D 05/16/18 07:15 Albumin 2.0 g/dl (3.4-5.0) L 05/16/18 07:15 CARDIAC ENZYMES Creatine Kinase 146 IU/L (39-308) 05/06/18 07:15 Current Medications Generic Name Dose Route Start Last Admin Trade Name Freq PRN Reason Stop Dose Admin Acetaminophen 650 mg 05/08/18 22:37 05/13/18 10:22 Tylenol - PO 650 mg Q6H PRN Administration PAIN OR FEVER Aspirin 325 mg 05/07/18 08:00 05/16/18 07:55 Asa - PO 325 mg DAILY@0800 DAYAMI Administration Atorvastatin Calcium 20 mg 05/06/18 22:00 05/15/18 22:06 Lipitor - PO 20 mg HS DAYAMI Administration Colchicine 0.6 mg 05/06/18 22:00 05/16/18 09:41 Colcrys - PO 0.6 mg BID DAYAMI Administration Docusate Sodium 100 mg 05/07/18 17:00 05/11/18 23:10 Colace - PO 100 mg Q12H PRN Administration CONSTIPATION Sodium Chloride 1,000 mls @ 75 mls/hr 05/09/18 14:00 05/16/18 06:36 Normal Saline - IV 75 mls/hr ASDIR DAYAMI Administration Ertapenem 1 gm/ Sodium 50 mls @ 50 mls/hr 05/13/18 21:30 05/16/18 09:41 Chloride IVPB 50 mls/hr DAILY DAYAMI Administration Insulin Aspart 1 vial 05/09/18 22:00 05/16/18 11:59 Novolog Vial Sliding Scale - SQ 4 units ACHS DAYAMI Administration Protocol Oxycodone HCl 5 mg 05/11/18 11:49 05/12/18 18:54 Roxicodone - PO 5 mg Q4H PRN Administration PAIN LEVEL 4 - 6 Polyethylene Glycol 17 gm 05/13/18 12:00 05/16/18 06:37 Miralax (For Daily Use) - PO 17 gm TID DAYAMI Administration Primidone 125 mg 05/07/18 07:00 05/16/18 06:36 Mysoline - PO 125 mg AM DAYAMI Administration Primidone 250 mg 05/06/18 22:00 05/15/18 22:13 Mysoline - PO 250 mg HS DAYAMI Administration Senna 2 tab 05/09/18 11:41 05/12/18 14:10 Senna - PO 2 tab HS PRN Administration CONSTIPATION Topiramate 75 mg 05/06/18 22:00 05/16/18 09:41 Topamax - PO 75 mg BID DAYAMI Administration Home Medications Medication Instructions Recorded Colchicine 0.6 mg PO BID 05/05/18 Glipizide [Glipizide ER] 5 mg PO DAILY 05/05/18 Glipizide [Glipizide ER] 10 mg PO DAILY 05/05/18 Pioglitazone HCl [Actos] 30 mg PO DAILY 05/05/18 Primidone [Mysoline -] 250 mg PO HS 05/05/18 Primidone [Mysoline] 125 mg PO AM 05/05/18 Simvastatin 40 mg PO DAILY 05/05/18 Topiramate 75 mg PO BID 05/05/18 Triamterene/Hydrochlorothiazid 1 tab PO DAILY 05/05/18 [Triamterene-Hctz 37.5-25 mg Cp] Acetaminophen [Tylenol .Regular 650 mg PO Q6H PRN tablet 05/12/18 Strength -] Aspirin [ASA -] 325 mg PO DAILY@0800 tablet 05/12/18 Docusate Sodium [Colace -] 100 mg PO Q12H PRN capsule 05/12/18 Heparin - 5,000 unit SQ TID vial 05/12/18 Polyethylene Glycol 3350 [Miralax 17 gm PO BID bottle 05/12/18 119 gm Btl -] Sennosides [Senna -] 2 tab PO HS PRN tablet 05/12/18 oxyCODONE HCL [Roxicodone -] 5 mg PO Q6H PRN tablet MDD 4 05/12/18 Microbiology 05/12/18 12:30 Blood - Peripheral Venous Blood Culture - Preliminary NO GROWTH OBTAINED AFTER 96 HOURS, INCUBATION TO CONTINUE FOR 1 DAYS. 05/12/18 12:20 Blood - Peripheral Venous Blood Culture - Preliminary NO GROWTH OBTAINED AFTER 96 HOURS, INCUBATION TO CONTINUE FOR 1 DAYS. 05/13/18 09:00 Urine - Urine Clean Catch Urine Culture - Preliminary Proteus Species 05/09/18 12:25 Blood - Peripheral Venous Blood Culture - Final NO GROWTH AFTER 5 DAYS INCUBATION 05/09/18 12:40 Blood - Peripheral Venous Blood Culture - Final NO GROWTH AFTER 5 DAYS INCUBATION ASSESSMENT AND PLAN: 82 y/o man with h/o essential tremor, hyperlipidemia, gout, bilateral total knee replacement and Dm who presented with R hip fx after a mechanical fall. # Acute UTI; due to Proteus Species , UA urine Cx is positive for Proteus Species , pending sensitivity, on ERtapenem, once sensitivity is back then we can switch to oral antibiotic and discharge the patient to rehab. ID on the case. # Acute Right Femoral neck Fx: s/p R hip hemiarthroplasty continue pain meds; tylenol and oxycodone. PT on the case # Anemia: Iron w/u was ordered to evaluate the patient. # ALISIA: improved 1.4-->1.0 now s/p IVF # Essential Tremor: On Mysoline continue #H/o DM: cont SSI , hGA1c 7.5 , will place him back to his home meds. Glipizide and Actos # HLP: statin therapy continue with Lipitor # Hx of Gout on colchicine continue Dispo: for SNF when ready medically DVT PX: Heparin sq Discharge was held from Rehab due to having fever, positive for UTI waiting for the sensitivity for oral antibiotic Visit type - Emergency Visit Emergency Visit: Yes ED Registration Date: 05/05/18 Care time: The patient presented to the Emergency Department on the above date and was hospitalized for further evaluation of their emergent condition. - New Patient This patient is new to me today: No - Critical Care Critical Care patient: No - Discharge Referral Referred to [facility] No
[2018-05-16] MEDS ORDERED: INSULIN (NOVOLOG) ASPART 100 UNITS/ML 10ML VIAL ONE (21:14)
[2018-05-16] MEDS: ATORVASTATIN CA 20 MG TABLET (FP) PO SCH (22:01)
[2018-05-17] MEDS: PRIMIDONE 250 MG TABLET PO SCH (06:02)
[2018-05-17] MEDS: POLYETHYLENE GLYCOL 3350 119 GM BTL PO SCH ×2 (06:02→15:16)
[2018-05-17] MEDS: INSULIN SLIDING SCALE (NOVOLOG) 1 VIAL SQ SCH ×2 (06:06→11:30)
[2018-05-17 07:15] LABS: BASO % 0.5 % (0-2.0); EOS % 7.7 % (0-4.5); HEMATOCRIT 28.6 % (35.4-49); HEMOGLOBIN 9.1 GM/dL (11.7-16.9); LYMPH % 12.6 % (8-40); MCH 29.6 pg (25.7-33.7); MCHC 31.9 g/dl (32.0-35.9); MEAN CELL VOLUME 92.8 fl (80-96); MEAN PLT VOLUME 8.2 fl (7.5-11.1); MONO % 7.1 % (3.8-10.2); NEUT % 72.1 % (42.8-82.8); PLATELET COUNT 378 K/MM3 (134-434); RBC 3.08 M/mm3 (4.00-5.60); RDW 14.4 % (11.9-15.9); WHITE BLOOD COUNT 11.8 K/mm3 (4.0-10.0)
[2018-05-17] MEDS ORDERED: HYDROCORTISONE 0.5% TOPICAL CREAM 30 GM TUBE TP ONE (07:15)
[2018-05-17 07:45] LABS: ANION GAP 8 MMOL/L (8-16); BLOOD UREA NITROGEN 27 mg/dL (7-18); CALCIUM 7.5 mg/dL (8.5-10.1); CHLORIDE 109 mmol/L (98-107); CO2 23 mmol/L (21-32); CREATININE 0.9 mg/dL (0.7-1.3); GLUCOSE,RANDOM 212 mg/dL (74-106); POTASSIUM 4.2 mmol/L (3.5-5.1); SODIUM 140 mmol/L (136-145)
[2018-05-17] MEDS: TOPIRAMATE 25 MG TABLET (FP) PO SCH (10:15)
[2018-05-17] MEDS: COLCHICINE 0.6 MG TABLET (FP) PO SCH (10:15)
[2018-05-17] MEDS: ERTAPENEM SODIUM 1 GM in SODIUM CHLORIDE 50 ML IVPB SCH (10:15)
[2018-05-17] MEDS: ASPIRIN 325 MG TABLET PO SCH (10:15)
[2018-05-17 10:43] LABS: ANISOCYTOSIS 1+; MACROCYTOSIS 1+; OVALOCYTE 1+; PLATELET ESTIMATE NORMAL
[2018-05-17] MEDS: SODIUM CHLORIDE 1,000 ML IV SCH (11:00)
--- NOTE | 2018-05-17 12:07 | PN ---
Physical Exam: SUBJECTIVE: Patient seen and examined at bedside. C/o pruritus over his back, otherwise no acute complaints. Comfortable. OBJECTIVE: Vital Signs Period Temp Pulse Resp BP Sys/Hill Pulse Ox Last 24 Hr 98.1 F-98.8 F 60-76 16-20 112-140/54-71 95 GENERAL: A&Ox3, NAD HEAD: NC/AT EYES: PERRLA, EOMI, no scleral icterus EARS, NOSE, THROAT: oropharynx clear without exudates. Moist mucous membranes. NECK: supple without lymphadenopathy LUNGS: CTA b/l, no crackles or wheezes HEART: Regular rate and rhythm, S1S2, mild systolic murmur at right sternal border ABDOMEN: Soft, NT/ND, normoactive bowel sounds MUSCULOSKELETAL: Right hip pain with movement, minimal pain on palpation, right leg externally rotated. No sacral ulcer. UPPER EXTREMITIES: 2+ pulses, warm, well-perfused. No cyanosis. No clubbing. No peripheral edema. LOWER EXTREMITIES: 2+ pulses, warm, well-perfused. No calf tenderness. No peripheral edema. Tender at R hip surgical site. NEUROLOGICAL: CN II-XII grossly intact. Known tremor present. Normal speech. 5/ 5 strength x RUE, LUE, LLE; RLE exam limited due to pain. PSYCHIATRIC: Cooperative. Good eye contact. Appropriate mood and affect. SKIN: Warm, dry, normal turgor, no rashes or lesions noted Laboratory Results - last 24 hr 05/16/18 05/16/18 05/16/18 11:53 16:38 21:59 WBC RBC Hgb Hct MCV MCH MCHC RDW Plt Count MPV Absolute Neuts (auto) Neutrophils % Neutrophils % (Manual) Band Neutrophils % Lymphocytes % Lymphocytes % (Manual) Monocytes % Monocytes % (Manual) Eosinophils % Eosinophils % (Manual) Basophils % Basophils % (Manual) Myelocytes % (Man) Promyelocytes % (Man) Blast Cells % (Manual) Nucleated RBC % Metamyelocytes Hypochromia Platelet Estimate Polychromasia Poikilocytosis Anisocytosis Microcytosis Macrocytosis Ovalocytes Sodium Potassium Chloride Carbon Dioxide Anion Gap BUN Creatinine Creat Clearance w eGFR POC Glucometer 223 209 233 Random Glucose Calcium 05/17/18 05/17/18 05/17/18 06:05 06:50 06:50 WBC 11.8 H RBC 3.08 L Hgb 9.1 L Hct 28.6 L MCV 92.8 MCH 29.6 MCHC 31.9 L RDW 14.4 Plt Count 378 MPV 8.2 Absolute Neuts (auto) 8.5 H Neutrophils % 72.1 Neutrophils % (Manual) 73.5 Band Neutrophils % 1.0 Lymphocytes % 12.6 D Lymphocytes % (Manual) 10.2 D Monocytes % 7.1 Monocytes % (Manual) 6 Eosinophils % 7.7 H Eosinophils % (Manual) 6.1 H Basophils % 0.5 Basophils % (Manual) 0.0 Myelocytes % (Man) 0 Promyelocytes % (Man) 0 Blast Cells % (Manual) 0 Nucleated RBC % 0 Metamyelocytes 2 D Hypochromia 1+ Platelet Estimate Normal Polychromasia 2+ Poikilocytosis 0 Anisocytosis 1+ Microcytosis 1+ Macrocytosis 1+ Ovalocytes 1+ Sodium 140 Potassium 4.2 Chloride 109 H Carbon Dioxide 23 Anion Gap 8 BUN 27 H Creatinine 0.9 Creat Clearance w eGFR > 60 POC Glucometer 226 Random Glucose 212 H Calcium 7.5 L 05/17/18 11:22 WBC RBC Hgb Hct MCV MCH MCHC RDW Plt Count MPV Absolute Neuts (auto) Neutrophils % Neutrophils % (Manual) Band Neutrophils % Lymphocytes % Lymphocytes % (Manual) Monocytes % Monocytes % (Manual) Eosinophils % Eosinophils % (Manual) Basophils % Basophils % (Manual) Myelocytes % (Man) Promyelocytes % (Man) Blast Cells % (Manual) Nucleated RBC % Metamyelocytes Hypochromia Platelet Estimate Polychromasia Poikilocytosis Anisocytosis Microcytosis Macrocytosis Ovalocytes Sodium Potassium Chloride Carbon Dioxide Anion Gap BUN Creatinine Creat Clearance w eGFR POC Glucometer 267 Random Glucose Calcium Active Medications Generic Name Dose Route Start Last Admin Trade Name Freq PRN Reason Stop Dose Admin Acetaminophen 650 mg 05/08/18 22:37 05/13/18 10:22 Tylenol - PO 650 mg Q6H PRN Administration PAIN OR FEVER Aspirin 325 mg 05/07/18 08:00 05/17/18 10:15 Asa - PO 325 mg DAILY@0800 DAYAMI Administration Atorvastatin Calcium 20 mg 05/06/18 22:00 05/16/18 22:01 Lipitor - PO 20 mg HS DAYAMI Administration Colchicine 0.6 mg 05/06/18 22:00 05/17/18 10:15 Colcrys - PO 0.6 mg BID DAYAMI Administration Docusate Sodium 100 mg 05/07/18 17:00 05/11/18 23:10 Colace - PO 100 mg Q12H PRN Administration CONSTIPATION Sodium Chloride 1,000 mls @ 75 mls/hr 05/09/18 14:00 05/17/18 11:00 Normal Saline - IV 75 mls/hr ASDIR DAYAMI Administration Ertapenem 1 gm/ Sodium 50 mls @ 50 mls/hr 05/13/18 21:30 05/17/18 10:15 Chloride IVPB 50 mls/hr DAILY DAYAMI Administration Insulin Aspart 1 vial 05/09/18 22:00 05/17/18 11:30 Novolog Vial Sliding Scale - SQ 6 units ACHS DAYAMI Administration Protocol Polyethylene Glycol 17 gm 05/13/18 12:00 05/17/18 06:02 Miralax (For Daily Use) - PO 17 gm TID DAYAMI Administration Primidone 125 mg 05/07/18 07:00 05/17/18 06:02 Mysoline - PO 125 mg AM DAYAMI Administration Primidone 250 mg 05/06/18 22:00 05/16/18 22:25 Mysoline - PO 250 mg HS DAYAMI Administration Senna 2 tab 05/09/18 11:41 05/12/18 14:10 Senna - PO 2 tab HS PRN Administration CONSTIPATION Topiramate 75 mg 05/06/18 22:00 05/17/18 10:15 Topamax - PO 75 mg BID DAYAMI Administration ASSESSMENT/PLAN:
--- NOTE | 2018-05-17 14:03 | PN ---
Progress Note, Physician History of Present Illness: Pt is alert, remains afebrile in the past few days. States he feels well. Denies chills, abd pain/n/v/d, dysuria, suprapubic/flank pain. Has no specific complaints. Asking to be discharged. - Current Medication List Current Medications: Active Medications Acetaminophen (Tylenol -) 650 mg PO Q6H PRN PRN Reason: PAIN OR FEVER Last Admin: 05/13/18 10:22 Dose: 650 mg Aspirin (Asa -) 325 mg PO DAILY@0800 [facility] Last Admin: 05/17/18 10:15 Dose: 325 mg Atorvastatin Calcium (Lipitor -) 20 mg PO HS [facility] Last Admin: 05/16/18 22:01 Dose: 20 mg Colchicine (Colcrys -) 0.6 mg PO BID [facility] Last Admin: 05/17/18 10:15 Dose: 0.6 mg Docusate Sodium (Colace -) 100 mg PO Q12H PRN PRN Reason: CONSTIPATION Last Admin: 05/11/18 23:10 Dose: 100 mg Sodium Chloride (Normal Saline -) 1,000 mls @ 75 mls/hr IV ASDIR [facility] Last Admin: 05/17/18 11:00 Dose: 75 mls/hr Ertapenem 1 gm/ Sodium (Chloride) 50 mls @ 50 mls/hr IVPB DAILY [facility] Last Admin: 05/17/18 10:15 Dose: 50 mls/hr Insulin Aspart (Novolog Vial Sliding Scale -) 1 vial SQ ACHS [facility]; Protocol Last Admin: 05/17/18 11:30 Dose: 6 units Polyethylene Glycol (Miralax (For Daily Use) -) 17 gm PO TID [facility] Last Admin: 05/17/18 06:02 Dose: 17 gm Primidone (Mysoline -) 125 mg PO AM [facility]I Last Admin: 05/17/18 06:02 Dose: 125 mg Primidone (Mysoline -) 250 mg PO HS [facility] Last Admin: 05/16/18 22:25 Dose: 250 mg Senna (Senna -) 2 tab PO HS PRN PRN Reason: CONSTIPATION Last Admin: 05/12/18 14:10 Dose: 2 tab Topiramate (Topamax -) 75 mg PO BID DAYAMI Last Admin: 05/17/18 10:15 Dose: 75 mg - Objective Vital Signs: Vital Signs Temperature 98.8 F 05/17/18 09:00 Pulse Rate 75 05/17/18 09:00 Respiratory Rate 20 05/17/18 09:00 Blood Pressure 112/54 05/17/18 09:00 O2 Sat by Pulse Oximetry (%) 95 05/16/18 21:00 Constitutional: Yes: No Distress, Calm Cardiovascular: Yes: Regular Rate and Rhythm Respiratory: Yes: CTA Bilaterally Gastrointestinal: Yes: Normal Bowel Sounds, Soft Genitourinary: Yes: WNL Extremities: Yes: WNL Wound/Incision: Yes: Dressing Dry and Intact Labs: CBC, BMP 05/17/18 06:50 05/17/18 06:50 INR, PTT INR 1.04 (0.83-1.09) 05/05/18 19:31 Problem List - Problems (1) Anemia Code(s): D64.9 - ANEMIA, UNSPECIFIED (2) Hip fracture Code(s): S72.009A - FRACTURE OF UNSP PART OF NECK OF UNSP FEMUR, INIT Assessment/Plan 82 y.o. male with PMH of DM, HLD, b/l TKA presented s/p mechanical fall and is s /p Rt THR noted to have persistent fevers UTI - urine culture results amended by microbiology lab Rt femur fracture, s/p Rt THR DM -- pt has been afebrile for >72hrs, without complaints. -- january d/c Ertapenem, switch to levaquin 500 mg po daily x 2 more days, starting tomorrow -- if patient is discharged and develops recurrence of fever he will need re- evaluation
[2018-05-17 14:06] VITALS: BP 123/67; PULSE 71; TEMP 98.2
--- NOTE | 2018-05-17 14:14 | PN ---
Teaching Attending Note Name of Resident: Teodoro Dixon ATTENDING PHYSICIAN STATEMENT I saw and evaluated the patient. I reviewed the resident's note and discussed the case with the resident. I agree with the resident's findings and plan as documented. SUBJECTIVE: Patient is feeling better with no acute distress, no further fever for >72hrs OBJECTIVE: Vital Signs Temperature 98.2 F 05/17/18 14:04 Pulse Rate 71 05/17/18 14:04 Respiratory Rate 20 05/17/18 09:00 Blood Pressure 123/67 05/17/18 14:04 O2 Sat by Pulse Oximetry (%) 95 05/16/18 21:00 CBCD WBC 11.8 K/mm3 (4.0-10.0) H 05/17/18 06:50 RBC 3.08 M/mm3 (4.00-5.60) L 05/17/18 06:50 Hgb 9.1 GM/dL (11.7-16.9) L 05/17/18 06:50 Hct 28.6 % (35.4-49) L 05/17/18 06:50 MCV 92.8 fl (80-96) 05/17/18 06:50 MCHC 31.9 g/dl (32.0-35.9) L 05/17/18 06:50 RDW 14.4 % (11.9-15.9) 05/17/18 06:50 Plt Count 378 K/MM3 (134-434) 05/17/18 06:50 MPV 8.2 fl (7.5-11.1) 05/17/18 06:50 CMP Sodium 140 mmol/L (136-145) 05/17/18 06:50 Potassium 4.2 mmol/L (3.5-5.1) 05/17/18 06:50 Chloride 109 mmol/L (98-107) H 05/17/18 06:50 Carbon Dioxide 23 mmol/L (21-32) 05/17/18 06:50 Anion Gap 8 MMOL/L (8-16) 05/17/18 06:50 BUN 27 mg/dL (7-18) H 05/17/18 06:50 Creatinine 0.9 mg/dL (0.7-1.3) 05/17/18 06:50 Creat Clearance w eGFR > 60 (>60) 05/17/18 06:50 Random Glucose 212 mg/dL (74-106) H 05/17/18 06:50 Calcium 7.5 mg/dL (8.5-10.1) L 05/17/18 06:50 Total Bilirubin 0.4 mg/dL (0.2-1.0) 05/16/18 07:15 AST 204 U/L (15-37) H D 05/16/18 07:15 ALT 252 U/L (12-78) H D 05/16/18 07:15 Alkaline Phosphatase 133 U/L (45-117) H D 05/16/18 07:15 Total Protein 5.2 g/dl (6.4-8.2) L D 05/16/18 07:15 Albumin 2.0 g/dl (3.4-5.0) L 05/16/18 07:15 CARDIAC ENZYMES Creatine Kinase 146 IU/L (39-308) 05/06/18 07:15 Current Medications Generic Name Dose Route Start Last Admin Trade Name Hiram PRN Reason Stop Dose Admin Acetaminophen 650 mg 05/08/18 22:37 05/13/18 10:22 Tylenol - PO 650 mg Q6H PRN Administration PAIN OR FEVER Aspirin 325 mg 05/07/18 08:00 05/17/18 10:15 Asa - PO 325 mg DAILY@0800 DAY[facility]I Administration Atorvastatin Calcium 20 mg 05/06/18 22:00 05/16/18 22:01 Lipitor - PO 20 mg HS DAYAMI Administration Colchicine 0.6 mg 05/06/18 22:00 05/17/18 10:15 Colcrys - PO 0.6 mg BID DAYAMI Administration Docusate Sodium 100 mg 05/07/18 17:00 05/11/18 23:10 Colace - PO 100 mg Q12H PRN Administration CONSTIPATION Sodium Chloride 1,000 mls @ 75 mls/hr 05/09/18 14:00 05/17/18 11:00 Normal Saline - IV 75 mls/hr ASDIR DAYAMI Administration Insulin Aspart 1 vial 05/09/18 22:00 05/17/18 11:30 Novolog Vial Sliding Scale - SQ 6 units ACHS DAYAMI Administration Protocol Levofloxacin 500 mg 05/18/18 10:00 Levaquin - PO 05/19/18 09:59 DAILY DAYAMI Polyethylene Glycol 17 gm 05/13/18 12:00 05/17/18 06:02 Miralax (For Daily Use) - PO 17 gm TID DAYAMI Administration Primidone 125 mg 05/07/18 07:00 05/17/18 06:02 Mysoline - PO 125 mg AM DAYAMI Administration Primidone 250 mg 05/06/18 22:00 05/16/18 22:25 Mysoline - PO 250 mg HS DAYAMI Administration Senna 2 tab 05/09/18 11:41 05/12/18 14:10 Senna - PO 2 tab HS PRN Administration CONSTIPATION Topiramate 75 mg 05/06/18 22:00 05/17/18 10:15 Topamax - PO 75 mg BID DAYAMI Administration Home Medications Medication Instructions Recorded Colchicine 0.6 mg PO BID 05/05/18 Glipizide [Glipizide ER] 5 mg PO DAILY 05/05/18 Glipizide [Glipizide ER] 10 mg PO DAILY 05/05/18 Pioglitazone HCl [Actos] 30 mg PO DAILY 05/05/18 Primidone [Mysoline -] 250 mg PO HS 05/05/18 Primidone [Mysoline] 125 mg PO AM 05/05/18 Simvastatin 40 mg PO DAILY 05/05/18 Topiramate 75 mg PO BID 05/05/18 Acetaminophen [Tylenol .Regular 650 mg PO Q6H PRN tablet 05/12/18 Strength -] Aspirin [ASA -] 325 mg PO DAILY@0800 tablet 05/12/18 Docusate Sodium [Colace -] 100 mg PO Q12H PRN capsule 05/12/18 Heparin - 5,000 unit SQ TID vial 05/12/18 Sennosides [Senna -] 2 tab PO HS PRN tablet 05/12/18 oxyCODONE HCL [Roxicodone -] 5 mg PO Q6H PRN tablet MDD 4 05/12/18 Polyethylene Glycol 3350 [Miralax 17 gm PO TID bottle 05/17/18 119 gm Btl -] PE: per resident's note Microbiology 05/12/18 12:30 Blood - Peripheral Venous Blood Culture - Final NO GROWTH AFTER 5 DAYS INCUBATION 05/12/18 12:20 Blood - Peripheral Venous Blood Culture - Final NO GROWTH AFTER 5 DAYS INCUBATION 05/13/18 09:00 Urine - Urine Clean Catch Urine Culture - Preliminary Non Lactose Fermenting Gnb Non Lactose Fermenting Gnb#2 05/09/18 12:25 Blood - Peripheral Venous Blood Culture - Final NO GROWTH AFTER 5 DAYS INCUBATION 05/09/18 12:40 Blood - Peripheral Venous Blood Culture - Final NO GROWTH AFTER 5 DAYS INCUBATION ASSESSMENT AND PLAN: 82 y/o man with h/o essential tremor, hyperlipidemia, gout, bilateral total knee replacement and Dm who presented with R hip fx after a mechanical fall. # Acute UTI; Urine culture was amended by Microbiology from Proteus Species--> to having GNB 1 &2 pending sensitivity,s/p ERtapenem x 5 days , a sper ID to give him 2 more days of Levaquin 500mg po daily x 2 more days starting in am . Discussed with Dr.Roya CORDOBA covering MD for . Patient is going to rehab.today. # s/p Right Femoral neck Fx: s/p R hip hemiarthroplasty continue pain meds; tylenol and oxycodone. PT on the case # Anemia: Iron w/u was ordered to evaluate the patient. # ALISIA: improved 1.4-->1.0 now s/p IVF # Essential Tremor: On Mysoline continue #H/o DM: cont SSI , hGA1c 7.5 , will place him back to his home meds. Glipizide , patient takes 15mg po daily and Actos # HLP: statin therapy continue with Lipitor # Hx of Gout on colchicine continue Dispo: for SNF when ready medically DVT PX: Heparin sq If patient develops fever in Rehab to return to the hospital for re-evaluation of recurrence of his fever.
--- NOTE | 2018-05-17 14:56 | DS ---
Physical Exam: SUBJECTIVE: Patient seen and examined at bedside. C/o pruritus over his back, otherwise no acute complaints. Comfortable. OBJECTIVE: Vital Signs Period Temp Pulse Resp BP Sys/Hill Pulse Ox Last 24 Hr 98.2 F-98.8 F 71-76 16-20 112-132/54-71 95 PHYSICAL EXAM GENERAL: A&Ox3, NAD HEAD: NC/AT EYES: PERRLA, EOMI, no scleral icterus EARS, NOSE, THROAT: oropharynx clear without exudates. Moist mucous membranes. NECK: supple without lymphadenopathy LUNGS: CTA b/l, no crackles or wheezes HEART: Regular rate and rhythm, S1S2, mild systolic murmur at right sternal border ABDOMEN: Soft, NT/ND, normoactive bowel sounds MUSCULOSKELETAL: Right hip pain with movement, minimal pain on palpation, right leg externally rotated. No sacral ulcer. UPPER EXTREMITIES: 2+ pulses, warm, well-perfused. No cyanosis. No clubbing. No peripheral edema. LOWER EXTREMITIES: 2+ pulses, warm, well-perfused. No calf tenderness. No peripheral edema. Tender at R hip surgical site. NEUROLOGICAL: CN II-XII grossly intact. Known tremor present. Normal speech. 5/ 5 strength x RUE, LUE, LLE; RLE exam limited due to pain. PSYCHIATRIC: Cooperative. Good eye contact. Appropriate mood and affect. SKIN: Warm, dry, normal turgor, no rashes or lesions noted LABS Laboratory Results - last 24 hr 05/16/18 05/16/18 05/17/18 16:38 21:59 06:05 WBC RBC Hgb Hct MCV MCH MCHC RDW Plt Count MPV Absolute Neuts (auto) Neutrophils % Neutrophils % (Manual) Band Neutrophils % Lymphocytes % Lymphocytes % (Manual) Monocytes % Monocytes % (Manual) Eosinophils % Eosinophils % (Manual) Basophils % Basophils % (Manual) Myelocytes % (Man) Promyelocytes % (Man) Blast Cells % (Manual) Nucleated RBC % Metamyelocytes Hypochromia Platelet Estimate Polychromasia Poikilocytosis Anisocytosis Microcytosis Macrocytosis Ovalocytes Sodium Potassium Chloride Carbon Dioxide Anion Gap BUN Creatinine Creat Clearance w eGFR POC Glucometer 209 233 226 Random Glucose Calcium 05/17/18 05/17/18 05/17/18 06:50 06:50 11:22 WBC 11.8 H RBC 3.08 L Hgb 9.1 L Hct 28.6 L MCV 92.8 MCH 29.6 MCHC 31.9 L RDW 14.4 Plt Count 378 MPV 8.2 Absolute Neuts (auto) 8.5 H Neutrophils % 72.1 Neutrophils % (Manual) 73.5 Band Neutrophils % 1.0 Lymphocytes % 12.6 D Lymphocytes % (Manual) 10.2 D Monocytes % 7.1 Monocytes % (Manual) 6 Eosinophils % 7.7 H Eosinophils % (Manual) 6.1 H Basophils % 0.5 Basophils % (Manual) 0.0 Myelocytes % (Man) 0 Promyelocytes % (Man) 0 Blast Cells % (Manual) 0 Nucleated RBC % 0 Metamyelocytes 2 D Hypochromia 1+ Platelet Estimate Normal Polychromasia 2+ Poikilocytosis 0 Anisocytosis 1+ Microcytosis 1+ Macrocytosis 1+ Ovalocytes 1+ Sodium 140 Potassium 4.2 Chloride 109 H Carbon Dioxide 23 Anion Gap 8 BUN 27 H Creatinine 0.9 Creat Clearance w eGFR > 60 POC Glucometer 267 Random Glucose 212 H Calcium 7.5 L HOSPITAL COURSE: Date of Admission:05/05/18 Patient is an 82 y/o M w/ PMHx NIDDM, essential tremor admitted following fall on right hip. XR demonstrated Fx of the right femoral neck. Orthopedics was consulted. Patient underwent hemiarthroplasty without complication. Patient began spiking intermittent fevers on POD 2-3. ID was consulted. CXR was benign. Additionally, patient complained of constipation over 8-9 days beginning prior to surgery. AXR was benign, and constipation was resolved with aggressive bowel regimen including enemas. Patient also experienced acute drop in hemoglobin following surgery, but this stabilized without intervention. F/u hip XR negative for hematoma. UCx was positive, patient was placed on a 5 day course of Ertapenem. Fevers resolved, patient was asymptomatic, and patient was discharged to SNF for rehab on a 2 day course of oral ABx. At time of discharge , bacterial sensitivity had not been determined, but will be followed and patient/SNF will be contacted immediately if any additional ABx therapy is required. Date of Discharge: 05/17/18 Minutes to complete discharge: 40 Discharge Summary Reason For Visit: FRACTURE OF NECK OF FEMUR Current Active Problems Anemia (Acute) Hip fracture (Acute) Condition: Improved - Instructions Diet, Activity, Other Instructions: You were hospitalized for a hip fracture and underwent surgery to repair it. You were medically monitored following surgery to ensure that you were recovering well. You developed a urinary tract infection and underwent treatment with antibiotics. You are being discharged to a senior care facility for physical rehabilitation. Referrals You have been referred to your primary care doctor, Dr. Balderas, for followup evaluation one week following discharge. You have been referred to your surgeon, Dr. Gomes, for followup evaluation one week following discharge. Please keep these appointments. Medications/medical recommendations Please resume your home medications as prescribed upon discharge. Additionally, you are being prescribed medications to relieve your constipation and control your pain to take as needed. Please continue using your incentive spirometer as instructed every day. Please work with the physical therapists at the facility to ensure that you regain your strength and functionality. Please engage in physical activity as you can tolerate it. You are being prescribed a short course of antibiotics to continue during your rehab for two days following discharge. Please take this medication as prescribed. If you experience fever, chills, burning on urination, chest pain, shortness of breath, or any other new symptoms, please return to the Emergency Department immediately. Referrals: Prince Balderas [Primary Care Provider] - 1 Week Mina Gomes MD [Staff Physician] - 1 Week Disposition: [facility] - Home Medications Comprehensive Discharge Medication List: Ambulatory Orders Colchicine 0.6 mg PO BID 05/05/18 Glipizide [Glipizide ER] 5 mg PO DAILY 05/05/18 Glipizide [Glipizide ER] 10 mg PO DAILY 05/05/18 Pioglitazone HCl [Actos] 30 mg PO DAILY 05/05/18 Primidone [Mysoline -] 250 mg PO HS 05/05/18 Primidone [Mysoline] 125 mg PO AM 05/05/18 Simvastatin 40 mg PO DAILY 05/05/18 Topiramate 75 mg PO BID 05/05/18 Acetaminophen [Tylenol .Regular Strength -] 650 mg PO Q6H PRN tablet 05/12/18 Aspirin [ASA -] 325 mg PO DAILY@0800 tablet 05/12/18 Docusate Sodium [Colace -] 100 mg PO Q12H PRN capsule 05/12/18 Heparin - 5,000 unit SQ TID vial 05/12/18 Sennosides [Senna -] 2 tab PO HS PRN tablet 05/12/18 oxyCODONE HCL [Roxicodone -] 5 mg PO Q6H PRN tablet MDD 4 05/12/18 Polyethylene Glycol 3350 [Miralax 119 gm Btl -] 17 gm PO TID bottle 05/17/18 levoFLOXacin [Levaquin -] 500 mg PO DAILY #2 tablet 05/17/18 This patient is new to me today: No Emergency Visit: No Critical Care patient: No - Discharge Referral Referred to [facility] Med [facility] No
== END 2018-05-17 16:00 | DRG 470 ==
LOC: JER 16:23 → JERBED 19:06 → J6S 21:43
PROVIDERS: ADMIT Internal Medicine; ATTEND Internal Medicine
PROC: 0SRR0JA Replacement of Right Hip Joint, Femoral Surface with Synthetic Substitute, Uncemented, Open Approach (ICD-10-PCS; principal; 2018-05-06 13:00)
DX: S72.001A Fracture of unspecified part of neck of right femur, initial encounter for closed fracture (principal); N17.9 Acute kidney failure, unspecified; N39.0 Urinary tract infection, site not specified; D62 Acute posthemorrhagic anemia; E11.9 Type 2 diabetes mellitus without complications; R50.82 Postprocedural fever; M10.9 Gout, unspecified; B96.4 Proteus (mirabilis) (morganii) as the cause of diseases classified elsewhere; K59.00 Constipation, unspecified; E78.5 Hyperlipidemia, unspecified; W19.XXXA Unspecified fall, initial encounter; Y93.9 Activity, unspecified; Y92.481 Parking lot as the place of occurrence of the external cause; Y99.8 Other external cause status
CPT/HCPCS: 36415; 71045-TC-FY; 73502-TC-RT; 73523-TC-FY; 74190-TC-FY; 76775-TC; 80048; 80053; 81003; 81015; 82272; 82550; 82728; 82962; 83036; 83540; 83550; 83735; 84100; 84550; 85025; 85027; 85610; 85730; 86850; 86900; 86901; 87040; 87086; 87186; 88305-TC; 88311-TC; 93005; 93010; 93970-TC; 94760; 97116-GP; 97162-GP; 99283-25; J1644; J7030

== ENCOUNTER 2021-12-22 12:47 | Inpatient (IN) | payer OTHER, MEDICARE ==
[2021-12-22 14:39] LABS: BASO % 0.1 % (0-2.0); HEMATOCRIT 44.8 % (35.4-49); HEMOGLOBIN 14.5 GM/dL (11.7-16.9); LYMPH % 10.4 % (8-40); MCH 29.7 pg (25.7-33.7); MCHC 32.4 g/dl (32.0-35.9); MEAN CELL VOLUME 91.9 fl (80-96); MEAN PLT VOLUME 8.7 fl (7.5-11.1); MONO % 8.7 % (3.8-10.2); NEUT % 80.8 % (42.8-82.8); PLATELET COUNT 191 10^3/uL (134-434); RBC 4.87 M/mm3 (4.00-5.60); RDW 13.8 % (11.9-15.9); WHITE BLOOD COUNT 8.6 K/mm3 (4.0-10.0)
[2021-12-22 14:44] LABS: INR 1.17 (0.83-1.09); PROTHROMBIN TIME (PATIENT) 13.5 SEC (9.7-13.0)
[2021-12-22 14:47] LABS: ACTIVATED PTT 26.3 SECONDS (25.2-36.5)
[2021-12-22] MEDS ORDERED: ASPIRIN 81 MG CHEWABLE TABLETS ONE (15:26)
[2021-12-22 18:47] LABS: ALBUMIN 3.3 g/dl (3.4-5.0); BLOOD UREA NITROGEN 47.4 mg/dL (7-18); CALCIUM 9.5 mg/dL (8.5-10.1)
[2021-12-22 18:51] LABS: CREATININE 1.3 mg/dL (0.55-1.3)
[2021-12-22 18:52] LABS: BILIRUBIN,TOTAL 0.5 mg/dL (0.2-1); TOT PROT 7.6 g/dl (6.4-8.2)
[2021-12-22] MEDS ORDERED: INSULIN (NOVOLOG) ASPART 100 UNITS/ML 10ML VIAL SQ ONE ×2 (20:14→22:17)
[2021-12-22] MEDS ORDERED: ALBUTEROL SO4 0.5 % INH SOLN 2.5 MG/0.5 ML VIAL.NEB. NEB ONE (20:37)
[2021-12-22 22:19] LABS: ARTERIAL BLD GAS O2 SATURATION 96.1 % (95-98); ARTERIAL BLOOD GAS BASE EXCESS -3.2 mmol/L (-2-2); ARTERIAL BLOOD GAS PO2 82.1 mmHg (80-100)
[2021-12-22 22:21] LABS: ALLENS TEST POSITIVE
[2021-12-22] MEDS: INSULIN SLIDING SCALE (NOVOLOG) 1 VIAL SQ SCH (22:46)
[2021-12-22] MEDS ORDERED: FUROSEMIDE 40 MG/4 ML INJECTABLE VIAL IVPUSH ONE (23:05)
[2021-12-23] MEDS ORDERED: FUROSEMIDE 40 MG/4 ML INJECTABLE VIAL IVPUSH ONE (02:00)
[2021-12-23] MEDS: INSULIN SLIDING SCALE (NOVOLOG) 1 VIAL SQ SCH ×4 (06:30→23:59)
[2021-12-23 07:27] LABS: BASO % 0.3 % (0-2.0); EOS % 0.6 % (0-4.5); HEMATOCRIT 40.7 % (35.4-49); HEMOGLOBIN 13.3 GM/dL (11.7-16.9); LYMPH % 18.7 % (8-40); MCH 29.9 pg (25.7-33.7); MCHC 32.6 g/dl (32.0-35.9); MEAN CELL VOLUME 91.9 fl (80-96); MEAN PLT VOLUME 8.3 fl (7.5-11.1); MONO % 6.2 % (3.8-10.2); NEUT % 74.2 % (42.8-82.8); PLATELET COUNT 196 10^3/uL (134-434); RBC 4.43 M/mm3 (4.00-5.60); RDW 13.3 % (11.9-15.9); WHITE BLOOD COUNT 7.5 K/mm3 (4.0-10.0)
[2021-12-23 07:45] LABS: BLOOD UREA NITROGEN 49.9 mg/dL (7-18)
[2021-12-23 07:46] LABS: MAGNESIUM 2.2 mg/dL (1.8-2.4)
[2021-12-23 07:48] LABS: CREATININE 1.5 mg/dL (0.55-1.3); PHOSPHOROUS 2.9 mg/dL (2.5-4.9)
[2021-12-23 07:50] LABS: BILIRUBIN,TOTAL 0.5 mg/dL (0.2-1)
[2021-12-23] MEDS ORDERED: ASPIRIN 325 MG TABLET PO SCH (08:00)
[2021-12-23] MEDS ORDERED: TRIAMTERENE AND HCTZ - 37.5 MG/25 MG CAPSULE PO SCH (10:00)
[2021-12-23] MEDS ORDERED: FUROSEMIDE 40 MG TABLET (FP) PO SCH (10:00)
[2021-12-23] MEDS: TOPIRAMATE 100 MG TABLET PO SCH ×2 (10:53→21:06)
[2021-12-23] MEDS: COLCHICINE 0.6 MG CAPSULE PO SCH ×2 (10:53→21:07)
[2021-12-23] MEDS: ENOXAPARIN NA (PORCINE) 40 MG/0.4 ML DISP.SYRIN SQ SCH (10:54)
[2021-12-23] MEDS ORDERED: DEXAMETHASONE SOD PHOSPHATE 10 MG/1 ML VIAL IM SCH (12:45)
[2021-12-23] MEDS: INSULIN (NOVOLOG) ASPART 100 UNITS/ML 10ML VIAL SQ SCH (17:38)
[2021-12-23] MEDS ORDERED: INSULIN (NOVOLOG) ASPART 100 UNITS/ML 10ML VIAL SQ ONE (19:16)
[2021-12-23] MEDS ORDERED: INSULIN (LEVEMIR) 100 UNITS/ML UNITS SQ SCH (22:00)
[2021-12-24] MEDS: PRIMIDONE 250 MG TABLET PO SCH (06:27)
[2021-12-24] MEDS: INSULIN (NOVOLOG) ASPART 100 UNITS/ML 10ML VIAL SQ SCH ×2 (06:33→17:22)
[2021-12-24] MEDS: INSULIN SLIDING SCALE (NOVOLOG) 1 VIAL SQ SCH ×4 (06:33→22:09)
[2021-12-24 06:54] LABS: HEMATOCRIT 36.8 % (35.4-49); HEMOGLOBIN 12.2 GM/dL (11.7-16.9); MCH 30.5 pg (25.7-33.7); MCHC 33.3 g/dl (32.0-35.9); MEAN CELL VOLUME 91.6 fl (80-96); MEAN PLT VOLUME 8.5 fl (7.5-11.1); PLATELET COUNT 170 10^3/uL (134-434); RBC 4.02 M/mm3 (4.00-5.60); RDW 13.5 % (11.9-15.9); WHITE BLOOD COUNT 6.9 K/mm3 (4.0-10.0)
[2021-12-24] MEDS ORDERED: INSULIN (LEVEMIR) 100 UNITS/ML UNITS SQ SCH ×3 (07:00→18:22)
[2021-12-24 07:07] LABS: CHLORIDE 109 mmol/L (98-107); SODIUM 145 mmol/L (136-145)
[2021-12-24 07:14] LABS: GLUCOSE,RANDOM 217 mg/dL (74-106)
[2021-12-24 07:15] LABS: ALBUMIN 2.7 g/dl (3.4-5.0); ANION GAP 7 MMOL/L (8-16); BLOOD UREA NITROGEN 56.2 mg/dL (7-18); CALCIUM 8.8 mg/dL (8.5-10.1); CO2 30 mmol/L (21-32)
[2021-12-24 07:18] LABS: CREATININE 1.3 mg/dL (0.55-1.3); SGPT/ALT 112 U/L (13-61)
[2021-12-24 07:19] LABS: SGOT/AST 184 U/L (15-37)
[2021-12-24 07:20] LABS: BILIRUBIN,TOTAL 0.4 mg/dL (0.2-1); TOT PROT 6.7 g/dl (6.4-8.2)
[2021-12-24 07:21] LABS: ALK PHOS 59 U/L (45-117)
[2021-12-24] MEDS: ENOXAPARIN NA (PORCINE) 40 MG/0.4 ML DISP.SYRIN SQ SCH (09:53)
[2021-12-24] MEDS: TOPIRAMATE 100 MG TABLET PO SCH ×2 (09:53→22:00)
[2021-12-24] MEDS: COLCHICINE 0.6 MG CAPSULE PO SCH ×2 (12:00→22:00)
[2021-12-24] MEDS ORDERED: Insulin (LOG) Aspart 100 UNITS/ML VIAL SQ SCH (16:30)
[2021-12-24] MEDS ORDERED: REMDESIVIR 200 MG in SODIUM CHLORIDE 250 ML IVPB ONE (17:00)
[2021-12-24] MEDS ORDERED: DEXTROSE 50%-WATER 25 GM/50 ML DISP.SYRIN IVPUSH PRN (18:22)
[2021-12-24] MEDS: DEXAMETHASONE 4 MG TABLET (FP) PO SCH (18:48)
[2021-12-24] MEDS ORDERED: INSULIN (NOVOLOG) ASPART 100 UNITS/ML 10ML VIAL ONE (21:53)
[2021-12-24] MEDS: INSULIN (LEVEMIR) 100 UNITS/ML UNITS SQ SCH (22:17)
[2021-12-25] MEDS: PRIMIDONE 250 MG TABLET PO SCH (06:12)
[2021-12-25] MEDS: INSULIN (NOVOLOG) ASPART 100 UNITS/ML 10ML VIAL SQ SCH ×3 (06:33→17:57)
[2021-12-25] MEDS: INSULIN SLIDING SCALE (NOVOLOG) 1 VIAL SQ SCH ×4 (06:33→22:15)
[2021-12-25 08:34] LABS: HEMATOCRIT 34.1 % (35.4-49); HEMOGLOBIN 11.2 GM/dL (11.7-16.9); MCH 30.2 pg (25.7-33.7); MCHC 32.8 g/dl (32.0-35.9); MEAN CELL VOLUME 91.9 fl (80-96); MEAN PLT VOLUME 8.8 fl (7.5-11.1); PLATELET COUNT 173 10^3/uL (134-434); RBC 3.71 M/mm3 (4.00-5.60); WHITE BLOOD COUNT 6.9 K/mm3 (4.0-10.0)
[2021-12-25 08:54] LABS: CALCIUM 8.3 mg/dL (8.5-10.1)
[2021-12-25 08:55] LABS: ALBUMIN 2.3 g/dl (3.4-5.0); BLOOD UREA NITROGEN 47.4 mg/dL (7-18)
[2021-12-25 08:56] LABS: MAGNESIUM 2.3 mg/dL (1.8-2.4)
[2021-12-25 08:58] LABS: CREATININE 1.1 mg/dL (0.55-1.3)
[2021-12-25 08:59] LABS: BILIRUBIN,TOTAL 0.4 mg/dL (0.2-1); TOT PROT 5.9 g/dl (6.4-8.2)
[2021-12-25 09:41] LABS: ERYTHROCYTE SEDIMENTATION RATE 81 mm/hr (0-20)
[2021-12-25] MEDS ORDERED: INSULIN (LEVEMIR) 100 UNITS/ML UNITS SQ ONE (11:05)
[2021-12-25] MEDS: ENOXAPARIN NA (PORCINE) 40 MG/0.4 ML DISP.SYRIN SQ SCH (12:27)
[2021-12-25] MEDS: DEXAMETHASONE 4 MG TABLET (FP) PO SCH (12:28)
[2021-12-25] MEDS: TOPIRAMATE 100 MG TABLET PO SCH ×2 (12:28→22:06)
[2021-12-25] MEDS: COLCHICINE 0.6 MG TAB PO SCH ×2 (12:28→22:06)
[2021-12-25] MEDS: COLCHICINE 0.6 MG CAPSULE PO SCH (13:08)
[2021-12-25] MEDS: NAPH,MB-DB/K PH,MBDB POWDER PACKET PO SCH ×2 (15:12→22:06)
[2021-12-25] MEDS: REMDESIVIR 100 MG in SODIUM CHLORIDE 250 ML IVPB SCH (18:01)
[2021-12-25 19:51] LABS: EPI CELLS 3 /uL (0-25.1); HYALINE CASTS 1 /uL (0-3.1); URINE APPEARANCE CLEAR; URINE BACTERIA 44 /uL (0-1359); URINE BILIRUBIN NEGATIVE (NEGATIVE); URINE COLOR YELLOW; URINE GLUCOSE (UA) 1+ (NEGATIVE); URINE KETONE NEGATIVE (NEGATIVE); URINE LEUK ESTERASE NEGATIVE (NEGATIVE); URINE NITRITE NEGATIVE (NEGATIVE); URINE PROTEIN 1+ (NEGATIVE); URINE RBC 5 /uL (0-23.9); URINE UROBILINOGEN 0.2 mg/dL (0.2-1.0); URINE WBC 3 /uL (0-25.8)
[2021-12-25] MEDS: INSULIN (LEVEMIR) 100 UNITS/ML UNITS SQ SCH (22:15)
[2021-12-26] MEDS: INSULIN SLIDING SCALE (NOVOLOG) 1 VIAL SQ SCH ×4 (06:08→21:46)
[2021-12-26] MEDS: INSULIN (LEVEMIR) 100 UNITS/ML UNITS SQ SCH ×2 (06:27→21:45)
[2021-12-26] MEDS: INSULIN (NOVOLOG) ASPART 100 UNITS/ML 10ML VIAL SQ SCH ×3 (06:27→17:58)
[2021-12-26] MEDS: PRIMIDONE 250 MG TABLET PO SCH (06:42)
[2021-12-26 07:59] LABS: ALBUMIN 2.5 g/dl (3.4-5.0)
[2021-12-26 08:00] LABS: CALCIUM 8.2 mg/dL (8.5-10.1)
[2021-12-26 08:01] LABS: BLOOD UREA NITROGEN 48.2 mg/dL (7-18)
[2021-12-26 08:02] LABS: MAGNESIUM 2.2 mg/dL (1.8-2.4)
[2021-12-26 08:03] LABS: CREATININE 1.1 mg/dL (0.55-1.3); PHOSPHOROUS 2.8 mg/dL (2.5-4.9)
[2021-12-26 08:04] LABS: BILIRUBIN,TOTAL 0.4 mg/dL (0.2-1); TOT PROT 5.6 g/dl (6.4-8.2)
[2021-12-26 08:27] LABS: HEMATOCRIT 31.5 % (35.4-49); HEMOGLOBIN 10.7 GM/dL (11.7-16.9); MCH 30.8 pg (25.7-33.7); MCHC 33.9 g/dl (32.0-35.9); MEAN CELL VOLUME 90.7 fl (80-96); MEAN PLT VOLUME 8.4 fl (7.5-11.1); PLATELET COUNT 174 10^3/uL (134-434); RBC 3.48 M/mm3 (4.00-5.60); RDW 13.2 % (11.9-15.9); WHITE BLOOD COUNT 5.8 K/mm3 (4.0-10.0)
[2021-12-26 11:08] LABS: SARS-CoV-2 NAA Detected (Not Detected)
[2021-12-26] MEDS: ENOXAPARIN NA (PORCINE) 40 MG/0.4 ML DISP.SYRIN SQ SCH (12:06)
[2021-12-26] MEDS: DEXAMETHASONE 4 MG TABLET (FP) PO SCH (12:06)
[2021-12-26] MEDS: COLCHICINE 0.6 MG TAB PO SCH ×2 (12:07→21:37)
[2021-12-26] MEDS: TOPIRAMATE 100 MG TABLET PO SCH ×2 (12:07→21:37)
[2021-12-26] MEDS: REMDESIVIR 100 MG in SODIUM CHLORIDE 250 ML IVPB SCH (17:43)
[2021-12-27] MEDS: INSULIN (LEVEMIR) 100 UNITS/ML UNITS SQ SCH ×2 (06:14→10:20)
[2021-12-27] MEDS: PRIMIDONE 250 MG TABLET PO SCH (06:14)
[2021-12-27] MEDS: INSULIN SLIDING SCALE (NOVOLOG) 1 VIAL SQ SCH ×4 (06:15→22:20)
[2021-12-27] MEDS: INSULIN (NOVOLOG) ASPART 100 UNITS/ML 10ML VIAL SQ SCH ×3 (06:15→17:30)
[2021-12-27] MEDS ORDERED: INSULIN (LEVEMIR) 100 UNITS/ML UNITS SQ SCH (07:47)
[2021-12-27 07:59] LABS: HEMATOCRIT 31.9 % (35.4-49); HEMOGLOBIN 10.8 GM/dL (11.7-16.9); MCH 30.7 pg (25.7-33.7); MCHC 33.8 g/dl (32.0-35.9); MEAN CELL VOLUME 90.9 fl (80-96); MEAN PLT VOLUME 8.4 fl (7.5-11.1); PLATELET COUNT 212 10^3/uL (134-434); RBC 3.51 M/mm3 (4.00-5.60); RDW 13.3 % (11.9-15.9); WHITE BLOOD COUNT 8.3 K/mm3 (4.0-10.0)
[2021-12-27 08:09] LABS: ALBUMIN 2.2 g/dl (3.4-5.0); BLOOD UREA NITROGEN 40.7 mg/dL (7-18); CALCIUM 8.2 mg/dL (8.5-10.1)
[2021-12-27 08:10] LABS: MAGNESIUM 2.2 mg/dL (1.8-2.4)
[2021-12-27 08:12] LABS: CREATININE 1.1 mg/dL (0.55-1.3); PHOSPHOROUS 3.4 mg/dL (2.5-4.9)
[2021-12-27 08:13] LABS: TOT PROT 5.5 g/dl (6.4-8.2)
[2021-12-27 08:15] LABS: BILIRUBIN,TOTAL 0.5 mg/dL (0.2-1)
[2021-12-27] MEDS: ENOXAPARIN NA (PORCINE) 40 MG/0.4 ML DISP.SYRIN SQ SCH (10:22)
[2021-12-27] MEDS: DEXAMETHASONE 4 MG TABLET (FP) PO SCH (10:25)
[2021-12-27] MEDS: COLCHICINE 0.6 MG TAB PO SCH ×2 (10:25→22:21)
[2021-12-27] MEDS: TOPIRAMATE 100 MG TABLET PO SCH ×2 (10:26→22:21)
[2021-12-27] MEDS: REMDESIVIR 100 MG in SODIUM CHLORIDE 250 ML IVPB SCH (17:28)
[2021-12-27] MEDS: POLYETHYLENE GLYCOL (HEALTHYLAX) 3350 17 GM PACKET PO SCH (22:20)
[2021-12-28] MEDS: INSULIN SLIDING SCALE (NOVOLOG) 1 VIAL SQ SCH ×4 (06:39→21:59)
[2021-12-28] MEDS: INSULIN (NOVOLOG) ASPART 100 UNITS/ML 10ML VIAL SQ SCH ×3 (06:39→17:51)
[2021-12-28] MEDS: PRIMIDONE 250 MG TABLET PO SCH (06:42)
[2021-12-28] MEDS: INSULIN (LEVEMIR) 100 UNITS/ML UNITS SQ SCH (07:54)
[2021-12-28 08:00] LABS: ALBUMIN 2.4 g/dl (3.4-5.0)
[2021-12-28 08:03] LABS: BILIRUBIN,DIRECT 0.1 mg/dL (0.0-0.2)
[2021-12-28 08:05] LABS: BILIRUBIN,TOTAL 0.3 mg/dL (0.2-1)
[2021-12-28 08:56] LABS: BASO % 0.3 % (0-2.0); EOS % 6.4 % (0-4.5); HEMOGLOBIN 11.8 GM/dL (11.7-16.9); LYMPH % 29.4 % (8-40); MCH 30.5 pg (25.7-33.7); MCHC 33.6 g/dl (32.0-35.9); MEAN CELL VOLUME 90.7 fl (80-96); MEAN PLT VOLUME 8.8 fl (7.5-11.1); MONO % 10.5 % (3.8-10.2); NEUT % 53.4 % (42.8-82.8); PLATELET COUNT 249 10^3/uL (134-434); RBC 3.86 M/mm3 (4.00-5.60); RDW 13.4 % (11.9-15.9); WHITE BLOOD COUNT 7.6 K/mm3 (4.0-10.0)
[2021-12-28 09:14] LABS: CALCIUM 8.3 mg/dL (8.5-10.1)
[2021-12-28 09:15] LABS: BLOOD UREA NITROGEN 41.7 mg/dL (7-18); CREATININE 1.1 mg/dL (0.55-1.3)
[2021-12-28] MEDS: DEXAMETHASONE 4 MG TABLET (FP) PO SCH (10:17)
[2021-12-28] MEDS: POLYETHYLENE GLYCOL (HEALTHYLAX) 3350 17 GM PACKET PO SCH ×2 (10:17→21:58)
[2021-12-28] MEDS: COLCHICINE 0.6 MG TAB PO SCH ×2 (10:17→21:58)
[2021-12-28] MEDS: TOPIRAMATE 100 MG TABLET PO SCH ×2 (10:18→22:06)
[2021-12-28] MEDS: ENOXAPARIN NA (PORCINE) 40 MG/0.4 ML DISP.SYRIN SQ SCH (10:18)
[2021-12-28] MEDS ORDERED: INSULIN (LEVEMIR) 100 UNITS/ML UNITS SQ SCH ×2 (15:02)
[2021-12-28] MEDS: REMDESIVIR 100 MG in SODIUM CHLORIDE 250 ML IVPB SCH (17:52)
[2021-12-28 19:03] VITALS: BMI 21.2
[2021-12-29] MEDS: PRIMIDONE 250 MG TABLET PO SCH (06:14)
[2021-12-29] MEDS: INSULIN (NOVOLOG) ASPART 100 UNITS/ML 10ML VIAL SQ SCH ×3 (06:15→17:29)
[2021-12-29] MEDS: INSULIN SLIDING SCALE (NOVOLOG) 1 VIAL SQ SCH ×3 (06:15→17:44)
[2021-12-29 07:13] LABS: HEMATOCRIT 33.9 % (35.4-49); HEMOGLOBIN 11.3 GM/dL (11.7-16.9); MCH 30.2 pg (25.7-33.7); MCHC 33.2 g/dl (32.0-35.9); MEAN PLT VOLUME 8.8 fl (7.5-11.1); PLATELET COUNT 289 10^3/uL (134-434); RBC 3.73 M/mm3 (4.00-5.60); RDW 13.1 % (11.9-15.9); WHITE BLOOD COUNT 8.5 K/mm3 (4.0-10.0)
[2021-12-29 07:43] LABS: CALCIUM 8.1 mg/dL (8.5-10.1)
[2021-12-29 07:44] LABS: ALBUMIN 2.5 g/dl (3.4-5.0); BLOOD UREA NITROGEN 42.5 mg/dL (7-18); MAGNESIUM 2.3 mg/dL (1.8-2.4)
[2021-12-29 07:45] LABS: BILIRUBIN,TOTAL 0.2 mg/dL (0.2-1)
[2021-12-29 07:47] LABS: PHOSPHOROUS 3.6 mg/dL (2.5-4.9)
[2021-12-29 09:04] LABS: ANISOCYTOSIS 1+; MACROCYTOSIS 0
[2021-12-29] MEDS ORDERED: ASCORBIC ACID 500 MG TABLET (FP) PO SCH (10:00)
[2021-12-29] MEDS ORDERED: MULTIVITAMINS (DAILY MVI) TABLET (FP) PO SCH (10:00)
[2021-12-29] MEDS: POLYETHYLENE GLYCOL (HEALTHYLAX) 3350 17 GM PACKET PO SCH (10:20)
[2021-12-29] MEDS: COLCHICINE 0.6 MG TAB PO SCH (10:20)
[2021-12-29] MEDS: DEXAMETHASONE 4 MG TABLET (FP) PO SCH (10:20)
[2021-12-29] MEDS: ENOXAPARIN NA (PORCINE) 40 MG/0.4 ML DISP.SYRIN SQ SCH (10:21)
[2021-12-29] MEDS: TOPIRAMATE 100 MG TABLET PO SCH (10:21)
[2021-12-29 18:45] VITALS: BP 112/62; PULSE 71; TEMP 99.3
[2021-12-29 19:06] LABS: CK-MM 100 % (97-100)
[2021-12-30 10:09] LABS: SARS-CoV-2 NAA Not Detected (Not Detected)
== END 2021-12-29 20:28 | DRG 177 ==
LOC: JER 12:47 → JERBED 15:42 → J4W 23:05
PROVIDERS: ADMIT Internal Medicine; ATTEND Internal Medicine
PROC: XW033E5 Introduction of Remdesivir Anti-infective into Peripheral Vein, Percutaneous Approach, New Technology Group 5 (ICD-10-PCS; principal; 2021-12-24)
PROC: 3E0333Z Introduction of Anti-inflammatory into Peripheral Vein, Percutaneous Approach (ICD-10-PCS; 2021-12-24)
DX: U07.1 COVID-19 (principal); J12.82 Pneumonia due to coronavirus disease 2019; J96.01 Acute respiratory failure with hypoxia; I50.33 Acute on chronic diastolic (congestive) heart failure; N17.9 Acute kidney failure, unspecified; I24.8 Other forms of acute ischemic heart disease; M62.82 Rhabdomyolysis; E78.5 Hyperlipidemia, unspecified; E11.65 Type 2 diabetes mellitus with hyperglycemia; R94.5 Abnormal results of liver function studies; R77.8 Other specified abnormalities of plasma proteins; M60.9 Myositis, unspecified; D64.9 Anemia, unspecified; I11.0 Hypertensive heart disease with heart failure; E11.42 Type 2 diabetes mellitus with diabetic polyneuropathy; Z88.0 Allergy status to penicillin
CPT/HCPCS: 36415; 36600; 71045-TC-FY; 76705-TC; 80053; 80076; 81003; 82550; 82552; 82553; 82570; 82728; 82803; 82962; 83036; 83615; 83735; 83880; 84100; 84133; 84300; 84484; 85025; 85027; 85379; 85610; 85651; 85730; 86140; 86705; 87340; 87517; 87651; 87804; 87902; 93005; 93010; 94660; 97116-GP; 97162-GP; 99285-25; C9399; C9803-CS; J1100; U0003; U0005

== ENCOUNTER 2022-02-03 15:20 | Inpatient (IN) | payer OTHER, MEDICARE ==
[2022-02-03] MEDS ORDERED: ACETAMINOPHEN 1000 MG/100 ML BAG IVPB ONE ×2 (17:06→22:28)
[2022-02-03 17:39] LABS: BASO % 0.7 % (0-2.0); HEMATOCRIT 37.8 % (35.4-49); HEMOGLOBIN 12.4 GM/dL (11.7-16.9); LYMPH % 20.9 % (8-40); MCH 29.9 pg (25.7-33.7); MCHC 32.8 g/dl (32.0-35.9); MEAN CELL VOLUME 91.3 fl (80-96); MEAN PLT VOLUME 7.2 fl (7.5-11.1); MONO % 10.6 % (3.8-10.2); NEUT % 63.8 % (42.8-82.8); PLATELET COUNT 285 10^3/uL (134-434); RBC 4.14 M/mm3 (4.00-5.60); RDW 13.4 % (11.9-15.9); WHITE BLOOD COUNT 5.7 K/mm3 (4.0-10.0)
[2022-02-03] MEDS ORDERED: ACETAMINOPHEN INJECTION 100 ML IVPB ONE ×2 (18:04→23:41)
[2022-02-03 18:25] LABS: CHLORIDE 102 mmol/L (98-107); SODIUM 142 mmol/L (136-145)
[2022-02-03 18:27] LABS: CALCIUM 9.7 mg/dL (8.5-10.1)
[2022-02-03 18:28] LABS: ALBUMIN 3.8 g/dl (3.4-5.0); ANION GAP 10 MMOL/L (8-16); BLOOD UREA NITROGEN 43.1 mg/dL (7-18); CO2 30 mmol/L (21-32); GLUCOSE,RANDOM 190 mg/dL (74-106)
[2022-02-03 18:31] LABS: CREATININE 1.2 mg/dL (0.55-1.3); SGOT/AST 18 U/L (15-37)
[2022-02-03 18:32] LABS: BILIRUBIN,TOTAL 0.3 mg/dL (0.2-1); SGPT/ALT 20 U/L (13-61)
[2022-02-03 18:33] LABS: TOT PROT 7.6 g/dl (6.4-8.2)
[2022-02-03 18:34] LABS: ALK PHOS 76 U/L (45-117)
[2022-02-04 00:01] LABS: URINE APPEARANCE CLEAR; URINE BILIRUBIN NEGATIVE (NEGATIVE); URINE COLOR YELLOW; URINE GLUCOSE (UA) NEGATIVE (NEGATIVE); URINE KETONE 1+ (NEGATIVE); URINE LEUK ESTERASE NEGATIVE (NEGATIVE); URINE NITRITE NEGATIVE (NEGATIVE); URINE PROTEIN TRACE (NEGATIVE); URINE UROBILINOGEN 0.2 mg/dL (0.2-1.0)
[2022-02-04] MEDS: INSULIN SLIDING SCALE (NOVOLOG) 1 VIAL SQ SCH ×4 (06:10→21:46)
[2022-02-04 08:03] LABS: URINE APPEARANCE CLEAR; URINE BILIRUBIN NEGATIVE (NEGATIVE); URINE COLOR YELLOW; URINE GLUCOSE (UA) NEGATIVE (NEGATIVE); URINE KETONE TRACE (NEGATIVE); URINE LEUK ESTERASE NEGATIVE (NEGATIVE); URINE NITRITE NEGATIVE (NEGATIVE); URINE PROTEIN NEGATIVE (NEGATIVE); URINE UROBILINOGEN 0.2 mg/dL (0.2-1.0)
[2022-02-04 08:27] LABS: BASO % 0.8 % (0-2.0); EOS % 7.2 % (0-4.5); HEMATOCRIT 35.1 % (35.4-49); HEMOGLOBIN 11.5 GM/dL (11.7-16.9); LYMPH % 22.8 % (8-40); MCH 30.6 pg (25.7-33.7); MCHC 32.8 g/dl (32.0-35.9); MEAN CELL VOLUME 93.1 fl (80-96); MEAN PLT VOLUME 7.8 fl (7.5-11.1); MONO % 9.6 % (3.8-10.2); NEUT % 59.6 % (42.8-82.8); RBC 3.77 M/mm3 (4.00-5.60); RDW 13.8 % (11.9-15.9); WHITE BLOOD COUNT 6.1 K/mm3 (4.0-10.0)
[2022-02-04 08:35] LABS: INR 1.09 (0.83-1.09); PROTHROMBIN TIME (PATIENT) 12.6 SEC (9.7-13.0)
[2022-02-04 08:37] LABS: ACTIVATED PTT 27.2 SECONDS (25.2-36.5)
[2022-02-04 08:54] LABS: PLATELET COUNT 211 10^3/uL (134-434)
[2022-02-04 09:18] LABS: BLOOD UREA NITROGEN 37.2 mg/dL (7-18); CALCIUM 9.2 mg/dL (8.5-10.1); MAGNESIUM 2.3 mg/dL (1.8-2.4)
[2022-02-04 09:19] LABS: ALBUMIN 3.3 g/dl (3.4-5.0)
[2022-02-04 09:21] LABS: CREATININE 0.9 mg/dL (0.55-1.3); PHOSPHOROUS 2.9 mg/dL (2.5-4.9)
[2022-02-04 09:22] LABS: BILIRUBIN,TOTAL 0.4 mg/dL (0.2-1); TOT PROT 6.8 g/dl (6.4-8.2)
[2022-02-04] MEDS: ENOXAPARIN NA (PORCINE) 40 MG/0.4 ML DISP.SYRIN SQ SCH (09:52)
[2022-02-04] MEDS ORDERED: SODIUM CHLORIDE 1,000 ML IV SCH (10:00)
[2022-02-04] MEDS ORDERED: ARTIFICIAL TEARS (POLYVINYL ALCOHOL) OPTH DROPS OU PRN (10:17)
[2022-02-04 10:29] LABS: LDH 179 U/L (87-246)
[2022-02-04] MEDS: CLOPIDOGREL BISULFATE 75 MG TABLET (FP) PO SCH (10:50)
[2022-02-04] MEDS: SODIUM CHLORIDE 1,000 ML IV SCH (14:48)
[2022-02-04] MEDS: TOPIRAMATE 100 MG TABLET PO SCH ×2 (15:54→21:46)
[2022-02-04] MEDS: PRIMIDONE 250 MG TABLET PO SCH ×2 (16:24→21:46)
[2022-02-04] MEDS: ATORVASTATIN CA 20 MG TABLET (FP) PO SCH (21:46)
[2022-02-05] MEDS: SODIUM CHLORIDE 1,000 ML IV SCH ×2 (05:22→09:39)
[2022-02-05] MEDS: INSULIN SLIDING SCALE (NOVOLOG) 1 VIAL SQ SCH ×4 (06:06→21:48)
[2022-02-05 09:03] LABS: BASO % 0.8 % (0-2.0); EOS % 8.5 % (0-4.5); HEMATOCRIT 33.1 % (35.4-49); LYMPH % 22.2 % (8-40); MCH 30.7 pg (25.7-33.7); MCHC 33.3 g/dl (32.0-35.9); MEAN CELL VOLUME 92.2 fl (80-96); MEAN PLT VOLUME 7.7 fl (7.5-11.1); MONO % 9.1 % (3.8-10.2); NEUT % 59.4 % (42.8-82.8); PLATELET COUNT 243 10^3/uL (134-434); RBC 3.59 M/mm3 (4.00-5.60); RDW 13.8 % (11.9-15.9); WHITE BLOOD COUNT 5.2 K/mm3 (4.0-10.0)
[2022-02-05 09:11] LABS: BLOOD UREA NITROGEN 27.3 mg/dL (7-18); CALCIUM 8.6 mg/dL (8.5-10.1); MAGNESIUM 2.2 mg/dL (1.8-2.4)
[2022-02-05 09:14] LABS: PHOSPHOROUS 2.6 mg/dL (2.5-4.9)
[2022-02-05 09:16] LABS: BILIRUBIN,TOTAL 0.4 mg/dL (0.2-1); TOT PROT 6.2 g/dl (6.4-8.2)
[2022-02-05] MEDS: CLOPIDOGREL BISULFATE 75 MG TABLET (FP) PO SCH (09:36)
[2022-02-05] MEDS: PRIMIDONE 250 MG TABLET PO SCH ×2 (09:38→21:44)
[2022-02-05] MEDS: COLLAGENASE CLOSTRIDIUM HIST. 30 GRAMS TUBE TP SCH (09:39)
[2022-02-05] MEDS: ENOXAPARIN NA (PORCINE) 40 MG/0.4 ML DISP.SYRIN SQ SCH (09:39)
[2022-02-05] MEDS: TOPIRAMATE 100 MG TABLET PO SCH (09:40)
[2022-02-05 13:28] VITALS: BMI 20.9
[2022-02-05] MEDS ORDERED: SODIUM CHLORIDE 1,000 ML IV SCH (16:45)
[2022-02-05] MEDS: AMINO ACIDS/PROTEIN HYDROLYS 30 ML LIQUID.PKT PO SCH (16:47)
[2022-02-05] MEDS: ATORVASTATIN CA 20 MG TABLET (FP) PO SCH (21:44)
[2022-02-05] MEDS: TOPIRAMATE 25 MG TABLET PO SCH (21:44)
[2022-02-06] MEDS: INSULIN SLIDING SCALE (NOVOLOG) 1 VIAL SQ SCH ×3 (06:12→16:32)
[2022-02-06 09:06] LABS: BASO % 0.4 % (0-2.0); EOS % 9.3 % (0-4.5); HEMATOCRIT 30.8 % (35.4-49); HEMOGLOBIN 10.1 GM/dL (11.7-16.9); LYMPH % 23.8 % (8-40); MCH 30.3 pg (25.7-33.7); MCHC 32.8 g/dl (32.0-35.9); MEAN CELL VOLUME 92.2 fl (80-96); MEAN PLT VOLUME 7.8 fl (7.5-11.1); MONO % 9.8 % (3.8-10.2); NEUT % 56.7 % (42.8-82.8); PLATELET COUNT 228 10^3/uL (134-434); RBC 3.34 M/mm3 (4.00-5.60); RDW 13.6 % (11.9-15.9); WHITE BLOOD COUNT 4.7 K/mm3 (4.0-10.0)
[2022-02-06] MEDS: ENOXAPARIN NA (PORCINE) 40 MG/0.4 ML DISP.SYRIN SQ SCH (09:22)
[2022-02-06] MEDS: CLOPIDOGREL BISULFATE 75 MG TABLET (FP) PO SCH (09:23)
[2022-02-06] MEDS: TOPIRAMATE 25 MG TABLET PO SCH (09:23)
[2022-02-06] MEDS: AMINO ACIDS/PROTEIN HYDROLYS 30 ML LIQUID.PKT PO SCH ×2 (09:24→16:38)
[2022-02-06] MEDS: COLLAGENASE CLOSTRIDIUM HIST. 30 GRAMS TUBE TP SCH (09:28)
[2022-02-06 09:31] LABS: BLOOD UREA NITROGEN 26.2 mg/dL (7-18); CALCIUM 8.3 mg/dL (8.5-10.1); MAGNESIUM 2.1 mg/dL (1.8-2.4)
[2022-02-06 09:32] LABS: ALBUMIN 2.8 g/dl (3.4-5.0)
[2022-02-06 09:35] LABS: CREATININE 0.9 mg/dL (0.55-1.3); PHOSPHOROUS 2.3 mg/dL (2.5-4.9)
[2022-02-06 09:36] LABS: BILIRUBIN,TOTAL 0.3 mg/dL (0.2-1); TOT PROT 5.9 g/dl (6.4-8.2)
[2022-02-06] MEDS ORDERED: ASCORBIC ACID 500 MG TABLET (FP) PO SCH (10:00)
[2022-02-06] MEDS ORDERED: MULTIVITAMINS (DAILY MVI) TABLET (FP) PO SCH (10:00)
[2022-02-06] MEDS ORDERED: POTASSIUM CHLORIDE TABS 20 MEQ TABLET.ER (FP) PO ONE (10:00)
[2022-02-06] MEDS ORDERED: ZINC SULFATE 220 MG CAPSULE (FP) PO SCH (10:00)
[2022-02-06] MEDS ORDERED: POTASSIUM PHOSPHATE 30 MM in SODIUM CHLORIDE 500 ML IVPB ONE (11:15)
[2022-02-06] MEDS ORDERED: metoPROLOL SUCCINATE 25 MG TAB.SR.24H (FP) PO SCH (12:30)
[2022-02-06 14:38] VITALS: BP 129/65
[2022-02-06 15:05] VITALS: PULSE 84; TEMP 98.7
== END 2022-02-06 19:13 | disposition home or self-care (01) | DRG 56 ==
LOC: JER 15:20 → JERBED 20:50 → J4S 02-04 05:02
PROVIDERS: ADMIT Internal Medicine; ATTEND Internal Medicine
DX: G20 Parkinson's disease (principal); L89.314 Pressure ulcer of right buttock, stage 4; L89.153 Pressure ulcer of sacral region, stage 3; I24.8 Other forms of acute ischemic heart disease; N17.9 Acute kidney failure, unspecified; J98.11 Atelectasis; R29.6 Repeated falls; E78.00 Pure hypercholesterolemia, unspecified; M10.9 Gout, unspecified; E11.65 Type 2 diabetes mellitus with hyperglycemia; E86.9 Volume depletion, unspecified; R94.5 Abnormal results of liver function studies; E11.40 Type 2 diabetes mellitus with diabetic neuropathy, unspecified; Z96.653 Presence of artificial knee joint, bilateral; W18.30XA Fall on same level, unspecified, initial encounter; Y92.098 Other place in other non-institutional residence as the place of occurrence of the external cause; R27.0 Ataxia, unspecified
CPT/HCPCS: 36415; 70450-TC; 71045-TC-FY; 71260-TC; 72125-TC; 72170-TC-FY; 72220-TC-FY; 80053; 80061; 81003; 82550; 82728; 82962; 83036; 83615; 83735; 84100; 84484; 85025; 85379; 85610; 85651; 85730; 86140; 87086; 87186; 93005; 93010; 93306-TC; 97116-GP; 97161-GP; 99285-25; C9803-CS; Q9967; U0003; U0005

== ENCOUNTER 2023-02-28 01:31 | Inpatient (IN) | payer OTHER, MEDICARE ==
[2023-02-28] MEDS ORDERED: SODIUM CHLORIDE 1,000 ML IV STA (01:56)
[2023-02-28] MEDS ORDERED: ACETAMINOPHEN 1000 MG/100 ML BAG IVPB ONE (01:56)
[2023-02-28] MEDS ORDERED: CEFTRIAXONE 1,000 MG in DEXTROSE 5%-WATER - 50 ML IVPB ONE (01:56)
[2023-02-28] MEDS ORDERED: ACETAMINOPHEN INJECTION 100 ML IVPB ONE (02:32)
[2023-02-28] MEDS ORDERED: CEFTRIAXONE 1 GM/50 ML BAG ONE (02:32)
[2023-02-28 02:36] LABS: BASO % 0.4 % (0-2.0); EOS % 0.1 % (0-4.5); HEMATOCRIT 36.7 % (35.4-49); MCH 29.6 pg (25.7-33.7); MCHC 32.8 g/dl (32.0-35.9); MEAN CELL VOLUME 90.4 fl (80-96); MEAN PLT VOLUME 8.2 fl (7.5-11.1); MONO % 8.7 % (3.8-10.2); NEUT % 76.8 % (42.8-82.8); PLATELET COUNT 349 10^3/uL (134-434); RBC 4.06 M/mm3 (4.00-5.60); RDW 13.6 % (11.9-15.9); WHITE BLOOD COUNT 10.3 K/mm3 (4.0-10.0)
[2023-02-28 02:39] LABS: VENOUS BASE EXCESS -3.8 mmol/L (-2-2); VENOUS O2 SATURATION 46.4 % (70-80); VENOUS PCO2 41.1 mmHg (38-52); VENOUS PH 7.34 (7.310-7.410)
[2023-02-28 02:43] LABS: INR 1.25 (0.83-1.09); PROTHROMBIN TIME (PATIENT) 14.5 SEC (9.7-13.0)
[2023-02-28 02:46] LABS: ACTIVATED PTT 25.5 SECONDS (25.2-36.5)
[2023-02-28 02:56] LABS: CHLORIDE 104 mmol/L (98-107); SODIUM 139 mmol/L (136-145)
[2023-02-28 02:58] LABS: CALCIUM 9.6 mg/dL (8.5-10.1)
[2023-02-28 02:59] LABS: BLOOD UREA NITROGEN 49.9 mg/dL (7-18); CO2 25 mmol/L (21-32); GLUCOSE,RANDOM 281 mg/dL (74-106)
[2023-02-28 02:59] LABS: EPI CELLS >36 /uL (0-25.1); HYALINE CASTS 1453 /uL (0-3.1); PH,URINE 5.5 (5.0-8.0); URINE APPEARANCE Error; URINE BILIRUBIN 1+ (NEGATIVE); URINE COLOR RED; URINE GLUCOSE (UA) 1+ (NEGATIVE); URINE KETONE NEGATIVE (NEGATIVE); URINE LEUK ESTERASE 3+ (NEGATIVE); URINE NITRITE POSITIVE (NEGATIVE); URINE PROTEIN 3+ (NEGATIVE); URINE RBC 4848 /uL (0-23.9); URINE UROBILINOGEN 0.2 mg/dL (0.2-1.0); URINE WBC 14397 /uL (0-25.8)
[2023-02-28 03:02] LABS: CREATININE 1.9 mg/dL (0.55-1.3); SGOT/AST 75 U/L (15-37); SGPT/ALT 39 U/L (13-61)
[2023-02-28 03:04] LABS: BILIRUBIN,TOTAL 0.7 mg/dL (0.2-1); TOT PROT 8.2 g/dl (6.4-8.2)
[2023-02-28 03:05] LABS: ALK PHOS 72 U/L (45-117)
[2023-02-28 03:23] LABS: ANION GAP 9 MMOL/L (8-16); LACTIC ACID 2.7 mmol/L (0.4-2.0); POTASSIUM 6.7 mmol/L (3.5-5.1)
[2023-02-28] MEDS ORDERED: VANCOMYCIN/WATER FOR INJ (PEG) 1,000 MG/200 ML BAG IVPB ONE ×2 (07:00→07:01)
[2023-02-28] MEDS: INSULIN SLIDING SCALE (NOVOLOG) 1 VIAL SQ SCH ×4 (07:53→22:10)
[2023-02-28] MEDS ORDERED: ACETAMINOPHEN 1000 MG/100 ML BAG IVPB PRN (09:00)
[2023-02-28] MEDS ORDERED: MAGNESIUM HYDROX 2400MG/30ML ORAL SUSPENSION 30 ML CUP PO PRN (10:17)
[2023-02-28] MEDS ORDERED: metoPROLOL SUCCINATE 25 MG TAB.SR.24H (FP) PO ONE (10:41)
[2023-02-28] MEDS ORDERED: TAMSULOSIN HCL 0.4 MG CAP ONE (10:42)
[2023-02-28] MEDS ORDERED: ENOXAPARIN NA (PORCINE) 30 MG/0.3 ML DISP.SYRIN SQ ONE (10:42)
[2023-02-28] MEDS ORDERED: LIDOCAINE 5% TOPICAL PATCH ONE (10:42)
[2023-02-28] MEDS ORDERED: CLOPIDOGREL BISULFATE 75 MG TABLET (FP) ONE (10:42)
[2023-02-28] MEDS ORDERED: CARBIDOPA/LEVODOPA 25/100 TABLET (FP) ONE (10:42)
[2023-02-28] MEDS ORDERED: ACETAMINOPHEN 325 MG TABLET (FP) PO PRN (11:00)
[2023-02-28] MEDS: metoPROLOL SUCCINATE 25 MG TAB.SR.24H (FP) PO SCH (11:04)
[2023-02-28] MEDS: LIDOCAINE 5% TOPICAL PATCH TP SCH (11:04)
[2023-02-28] MEDS: ENOXAPARIN NA (PORCINE) 30 MG/0.3 ML DISP.SYRIN SQ SCH (11:04)
[2023-02-28] MEDS: CLOPIDOGREL BISULFATE 75 MG TABLET (FP) PO SCH (11:04)
[2023-02-28] MEDS: TAMSULOSIN HCL 0.4 MG CAP PO SCH (11:04)
[2023-02-28] MEDS ORDERED: SENNOSIDES 8.6MG TABLET (FP) PO ONE (21:52)
[2023-02-28] MEDS ORDERED: LORATADINE 10 MG TABLET ONE (21:53)
[2023-02-28] MEDS ORDERED: INSULIN (LEVEMIR) 100 UNITS/ML UNITS SQ ONE (21:54)
[2023-02-28] MEDS: LORATADINE 10 MG TABLET PO SCH (22:10)
[2023-02-28] MEDS: PRIMIDONE 250 MG TABLET PO SCH (22:10)
[2023-02-28] MEDS: LIDOCAINE PATCH REMOVAL MC SCH (22:10)
[2023-02-28] MEDS: SENNOSIDES 8.6MG TABLET (FP) PO SCH (22:10)
[2023-02-28] MEDS: INSULIN (LEVEMIR) 100 UNITS/ML UNITS SQ SCH (22:10)
[2023-02-28] MEDS: MINERAL OIL/PETROLAT/WATER TOPICAL CREAM 454 GM JAR TP SCH (22:32)
[2023-03-01] MEDS: INSULIN SLIDING SCALE (NOVOLOG) 1 VIAL SQ SCH ×4 (06:53→21:02)
[2023-03-01 07:25] LABS: BASO % 0.7 % (0-2.0); EOS % 3.4 % (0-4.5); HEMATOCRIT 31.6 % (35.4-49); HEMOGLOBIN 10.3 GM/dL (11.7-16.9); LYMPH % 9.7 % (8-40); MCH 29.9 pg (25.7-33.7); MCHC 32.6 g/dl (32.0-35.9); MEAN CELL VOLUME 91.8 fl (80-96); MEAN PLT VOLUME 8.7 fl (7.5-11.1); MONO % 6.9 % (3.8-10.2); NEUT % 79.3 % (42.8-82.8); PLATELET COUNT 315 10^3/uL (134-434); RBC 3.45 M/mm3 (4.00-5.60); RDW 13.2 % (11.9-15.9); WHITE BLOOD COUNT 10.1 K/mm3 (4.0-10.0)
[2023-03-01 07:52] LABS: POTASSIUM 4.5 mmol/L (3.5-5.1)
[2023-03-01 07:55] LABS: ALBUMIN 2.7 g/dl (3.4-5.0); BLOOD UREA NITROGEN 42.1 mg/dL (7-18)
[2023-03-01 07:58] LABS: CREATININE 1.5 mg/dL (0.55-1.3)
[2023-03-01 07:59] LABS: TOT PROT 6.9 g/dl (6.4-8.2)
[2023-03-01 08:00] LABS: BILIRUBIN,TOTAL 0.3 mg/dL (0.2-1)
[2023-03-01] MEDS: TAMSULOSIN HCL 0.4 MG CAP PO SCH (08:22)
[2023-03-01] MEDS: LIDOCAINE 5% TOPICAL PATCH TP SCH (09:49)
[2023-03-01] MEDS: CEFTRIAXONE 1 GM in DEXTROSE 5%-WATER - 50 ML IVPB SCH (09:49)
[2023-03-01] MEDS: MINERAL OIL/PETROLAT/WATER TOPICAL CREAM 454 GM JAR TP SCH ×2 (09:50→21:05)
[2023-03-01] MEDS: SENNOSIDES 8.6MG TABLET (FP) PO SCH ×2 (09:50→21:02)
[2023-03-01] MEDS: metoPROLOL SUCCINATE 25 MG TAB.SR.24H (FP) PO SCH (09:50)
[2023-03-01] MEDS: CLOPIDOGREL BISULFATE 75 MG TABLET (FP) PO SCH (09:50)
[2023-03-01] MEDS: ENOXAPARIN NA (PORCINE) 30 MG/0.3 ML DISP.SYRIN SQ SCH (09:53)
[2023-03-01 10:40] LABS: EPI CELLS 4 /uL (0-25.1); HYALINE CASTS 5 /uL (0-3.1); PH,URINE 5.5 (5.0-8.0); URINE APPEARANCE CLEAR; URINE BACTERIA 31 /uL (0-1359); URINE BILIRUBIN NEGATIVE (NEGATIVE); URINE COLOR YELLOW; URINE GLUCOSE (UA) NEGATIVE (NEGATIVE); URINE KETONE NEGATIVE (NEGATIVE); URINE LEUK ESTERASE 1+ (NEGATIVE); URINE NITRITE NEGATIVE (NEGATIVE); URINE PROTEIN 3+ (NEGATIVE); URINE RBC 419 /uL (0-23.9); URINE UROBILINOGEN 0.2 mg/dL (0.2-1.0); URINE WBC 3266 /uL (0-25.8)
[2023-03-01] MEDS ORDERED: SODIUM CHLORIDE 0.45% 1,000 ML IV SCH (11:45)
[2023-03-01] MEDS: MULTIVITAMINS THER W-MINERALS COMBO TABLET (FP) PO SCH (17:09)
[2023-03-01] MEDS: LORATADINE 10 MG TABLET PO SCH (21:02)
[2023-03-01] MEDS: INSULIN (LEVEMIR) 100 UNITS/ML UNITS SQ SCH (21:03)
[2023-03-01] MEDS: LIDOCAINE PATCH REMOVAL MC SCH (21:05)
[2023-03-01] MEDS: PRIMIDONE 250 MG TABLET PO SCH (21:39)
[2023-03-02] MEDS: INSULIN SLIDING SCALE (NOVOLOG) 1 VIAL SQ SCH ×4 (06:13→21:38)
[2023-03-02 08:01] LABS: POTASSIUM 4.1 mmol/L (3.5-5.1)
[2023-03-02 08:03] LABS: ALBUMIN 2.3 g/dl (3.4-5.0); BLOOD UREA NITROGEN 31.8 mg/dL (7-18); CALCIUM 8.4 mg/dL (8.5-10.1)
[2023-03-02 08:08] LABS: BILIRUBIN,TOTAL 0.5 mg/dL (0.2-1); TOT PROT 6.2 g/dl (6.4-8.2)
[2023-03-02] MEDS: LIDOCAINE 5% TOPICAL PATCH TP SCH (09:47)
[2023-03-02] MEDS: SENNOSIDES 8.6MG TABLET (FP) PO SCH ×2 (09:48→21:35)
[2023-03-02] MEDS: CLOPIDOGREL BISULFATE 75 MG TABLET (FP) PO SCH (09:48)
[2023-03-02] MEDS: TAMSULOSIN HCL 0.4 MG CAP PO SCH (09:48)
[2023-03-02] MEDS: CEFTRIAXONE 1 GM in DEXTROSE 5%-WATER - 50 ML IVPB SCH (09:48)
[2023-03-02] MEDS: metoPROLOL SUCCINATE 25 MG TAB.SR.24H (FP) PO SCH (09:49)
[2023-03-02] MEDS: ENOXAPARIN NA (PORCINE) 30 MG/0.3 ML DISP.SYRIN SQ SCH (09:49)
[2023-03-02] MEDS: MULTIVITAMINS THER W-MINERALS COMBO TABLET (FP) PO SCH (09:49)
[2023-03-02] MEDS: MINERAL OIL/PETROLAT/WATER TOPICAL CREAM 454 GM JAR TP SCH ×2 (11:04→21:38)
[2023-03-02] MEDS ORDERED: MEROPENEM 1 GM in DEXTROSE 5%-WATER 100 ML IVPB SCH ×2 (13:00→18:00)
[2023-03-02] MEDS: ERTAPENEM SODIUM 1 GM in SODIUM CHLORIDE 50 ML IVPB SCH (19:34)
[2023-03-02] MEDS: LORATADINE 10 MG TABLET PO SCH (21:35)
[2023-03-02] MEDS: PRIMIDONE 250 MG TABLET PO SCH (21:36)
[2023-03-02] MEDS: INSULIN (LEVEMIR) 100 UNITS/ML UNITS SQ SCH (21:36)
[2023-03-02] MEDS: LIDOCAINE PATCH REMOVAL MC SCH (21:38)
[2023-03-03] MEDS: INSULIN SLIDING SCALE (NOVOLOG) 1 VIAL SQ SCH ×4 (06:12→21:46)
[2023-03-03 09:16] LABS: BASO % 0.2 % (0-2.0); EOS % 1.9 % (0-4.5); HEMATOCRIT 32.2 % (35.4-49); HEMOGLOBIN 10.7 GM/dL (11.7-16.9); LYMPH % 8.5 % (8-40); MCH 29.2 pg (25.7-33.7); MCHC 33.1 g/dl (32.0-35.9); MEAN CELL VOLUME 88.3 fl (80-96); MEAN PLT VOLUME 7.9 fl (7.5-11.1); MONO % 10.2 % (3.8-10.2); NEUT % 79.2 % (42.8-82.8); PLATELET COUNT 361 10^3/uL (134-434); RBC 3.65 M/mm3 (4.00-5.60); WHITE BLOOD COUNT 11.4 K/mm3 (4.0-10.0)
[2023-03-03 09:20] LABS: POTASSIUM 3.9 mmol/L (3.5-5.1)
[2023-03-03 09:23] LABS: CALCIUM 9.1 mg/dL (8.5-10.1)
[2023-03-03] MEDS: LIDOCAINE 5% TOPICAL PATCH TP SCH (09:23)
[2023-03-03 09:24] LABS: ALBUMIN 2.5 g/dl (3.4-5.0)
[2023-03-03] MEDS: SENNOSIDES 8.6MG TABLET (FP) PO SCH ×2 (09:24→21:45)
[2023-03-03] MEDS: CLOPIDOGREL BISULFATE 75 MG TABLET (FP) PO SCH (09:24)
[2023-03-03] MEDS: ENOXAPARIN NA (PORCINE) 30 MG/0.3 ML DISP.SYRIN SQ SCH (09:24)
[2023-03-03] MEDS: metoPROLOL SUCCINATE 25 MG TAB.SR.24H (FP) PO SCH (09:24)
[2023-03-03] MEDS: TAMSULOSIN HCL 0.4 MG CAP PO SCH (09:24)
[2023-03-03] MEDS: MINERAL OIL/PETROLAT/WATER TOPICAL CREAM 454 GM JAR TP SCH ×2 (09:25→21:47)
[2023-03-03] MEDS: MULTIVITAMINS THER W-MINERALS COMBO TABLET (FP) PO SCH (09:25)
[2023-03-03 09:27] LABS: CREATININE 1.3 mg/dL (0.55-1.3)
[2023-03-03 09:29] LABS: BILIRUBIN,TOTAL 0.3 mg/dL (0.2-1); TOT PROT 6.8 g/dl (6.4-8.2)
[2023-03-03] MEDS: ERTAPENEM SODIUM 1 GM in SODIUM CHLORIDE 50 ML IVPB SCH (11:02)
[2023-03-03] MEDS: LORATADINE 10 MG TABLET PO SCH (21:45)
[2023-03-03] MEDS: INSULIN (LEVEMIR) 100 UNITS/ML UNITS SQ SCH (21:46)
[2023-03-03] MEDS: LIDOCAINE PATCH REMOVAL MC SCH (21:47)
[2023-03-03] MEDS: PRIMIDONE 250 MG TABLET PO SCH (21:48)
[2023-03-04] MEDS: INSULIN SLIDING SCALE (NOVOLOG) 1 VIAL SQ SCH ×4 (06:49→22:26)
[2023-03-04 07:12] LABS: BASO % 0.3 % (0-2.0); EOS % 3.3 % (0-4.5); HEMATOCRIT 32.3 % (35.4-49); HEMOGLOBIN 10.3 GM/dL (11.7-16.9); LYMPH % 9.9 % (8-40); MCH 28.9 pg (25.7-33.7); MEAN CELL VOLUME 90.4 fl (80-96); MONO % 10.6 % (3.8-10.2); NEUT % 75.9 % (42.8-82.8); PLATELET COUNT 356 10^3/uL (134-434); RBC 3.57 M/mm3 (4.00-5.60); RDW 12.9 % (11.9-15.9)
[2023-03-04] MEDS: TAMSULOSIN HCL 0.4 MG CAP PO SCH (09:52)
[2023-03-04] MEDS: MULTIVITAMINS THER W-MINERALS COMBO TABLET (FP) PO SCH (09:53)
[2023-03-04] MEDS: LIDOCAINE 5% TOPICAL PATCH TP SCH (09:53)
[2023-03-04] MEDS: metoPROLOL SUCCINATE 25 MG TAB.SR.24H (FP) PO SCH (09:53)
[2023-03-04] MEDS: ERTAPENEM SODIUM 1 GM in SODIUM CHLORIDE 50 ML IVPB SCH (09:54)
[2023-03-04] MEDS: MINERAL OIL/PETROLAT/WATER TOPICAL CREAM 454 GM JAR TP SCH ×2 (09:54→22:27)
[2023-03-04] MEDS: DEXTROSE 5%-NORMAL SALINE 1,000 ML IV SCH (10:38)
[2023-03-04] MEDS: SENNOSIDES 8.6MG TABLET (FP) PO SCH (10:41)
[2023-03-04 12:15] LABS: BASO % 0.4 % (0-2.0); EOS % 2.6 % (0-4.5); HEMATOCRIT 31.1 % (35.4-49); HEMOGLOBIN 10.1 GM/dL (11.7-16.9); LYMPH % 9.1 % (8-40); MCHC 32.5 g/dl (32.0-35.9); MEAN CELL VOLUME 89.4 fl (80-96); MEAN PLT VOLUME 8.1 fl (7.5-11.1); MONO % 10.6 % (3.8-10.2); NEUT % 77.3 % (42.8-82.8); PLATELET COUNT 356 10^3/uL (134-434); RBC 3.48 M/mm3 (4.00-5.60); RDW 13.4 % (11.9-15.9); WHITE BLOOD COUNT 13.1 K/mm3 (4.0-10.0)
[2023-03-04] MEDS: POLYETHYLENE GLYCOL (HEALTHYLAX) 3350 17 GM PACKET PO SCH ×2 (14:18→22:27)
[2023-03-04 17:10] LABS: INR 1.23 (0.83-1.09); PROTHROMBIN TIME (PATIENT) 14.2 SEC (9.7-13.0)
[2023-03-04 17:20] LABS: POTASSIUM 4.2 mmol/L (3.5-5.1)
[2023-03-04 17:22] LABS: ALBUMIN 2.4 g/dl (3.4-5.0); CALCIUM 8.8 mg/dL (8.5-10.1)
[2023-03-04 17:23] LABS: BLOOD UREA NITROGEN 34.4 mg/dL (7-18)
[2023-03-04 17:25] LABS: CREATININE 1.2 mg/dL (0.55-1.3)
[2023-03-04 17:27] LABS: BILIRUBIN,TOTAL 0.2 mg/dL (0.2-1); TOT PROT 6.6 g/dl (6.4-8.2)
[2023-03-04 19:48] LABS: HEMATOCRIT 29.4 % (35.4-49); HEMOGLOBIN 9.8 GM/dL (11.7-16.9); MCH 29.8 pg (25.7-33.7); MCHC 33.3 g/dl (32.0-35.9); MEAN CELL VOLUME 89.2 fl (80-96); PLATELET COUNT 331 10^3/uL (134-434); RDW 13.4 % (11.9-15.9); WHITE BLOOD COUNT 10.2 K/mm3 (4.0-10.0)
[2023-03-04] MEDS: LORATADINE 10 MG TABLET PO SCH (22:26)
[2023-03-04] MEDS: PRIMIDONE 250 MG TABLET PO SCH (22:26)
[2023-03-04] MEDS: INSULIN (LEVEMIR) 100 UNITS/ML UNITS SQ SCH (22:27)
[2023-03-04] MEDS: LIDOCAINE PATCH REMOVAL MC SCH (22:27)
[2023-03-05] MEDS: POLYETHYLENE GLYCOL (HEALTHYLAX) 3350 17 GM PACKET PO SCH ×3 (05:44→22:26)
[2023-03-05] MEDS: INSULIN SLIDING SCALE (NOVOLOG) 1 VIAL SQ SCH ×4 (06:20→22:26)
[2023-03-05] MEDS: DEXTROSE 5%-NORMAL SALINE 1,000 ML IV SCH (10:15)
[2023-03-05 10:58] LABS: BASO % 0.4 % (0-2.0); EOS % 5.1 % (0-4.5); HEMATOCRIT 28.5 % (35.4-49); HEMOGLOBIN 9.2 GM/dL (11.7-16.9); LYMPH % 11.6 % (8-40); MCH 28.9 pg (25.7-33.7); MCHC 32.5 g/dl (32.0-35.9); MEAN CELL VOLUME 89.2 fl (80-96); MEAN PLT VOLUME 7.8 fl (7.5-11.1); MONO % 10.7 % (3.8-10.2); NEUT % 72.2 % (42.8-82.8); PLATELET COUNT 360 10^3/uL (134-434); RBC 3.19 M/mm3 (4.00-5.60); RDW 13.5 % (11.9-15.9); WHITE BLOOD COUNT 10.1 K/mm3 (4.0-10.0)
[2023-03-05 11:05] LABS: INR 1.34 (0.83-1.09); PROTHROMBIN TIME (PATIENT) 15.5 SEC (9.7-13.0)
[2023-03-05] MEDS: TAMSULOSIN HCL 0.4 MG CAP PO SCH (11:10)
[2023-03-05] MEDS: metoPROLOL SUCCINATE 25 MG TAB.SR.24H (FP) PO SCH (11:10)
[2023-03-05] MEDS: MULTIVITAMINS THER W-MINERALS COMBO TABLET (FP) PO SCH (11:10)
[2023-03-05] MEDS: MINERAL OIL/PETROLAT/WATER TOPICAL CREAM 454 GM JAR TP SCH ×2 (11:12→22:28)
[2023-03-05] MEDS: LIDOCAINE 5% TOPICAL PATCH TP SCH (11:12)
[2023-03-05] MEDS: ERTAPENEM SODIUM 1 GM in SODIUM CHLORIDE 50 ML IVPB SCH (11:12)
[2023-03-05 11:18] LABS: POTASSIUM 4.6 mmol/L (3.5-5.1)
[2023-03-05 11:20] LABS: CALCIUM 8.8 mg/dL (8.5-10.1)
[2023-03-05 11:21] LABS: ALBUMIN 2.3 g/dl (3.4-5.0); BLOOD UREA NITROGEN 30.3 mg/dL (7-18)
[2023-03-05 11:24] LABS: CREATININE 1.1 mg/dL (0.55-1.3)
[2023-03-05 11:25] LABS: TOT PROT 6.3 g/dl (6.4-8.2)
[2023-03-05 11:26] LABS: BILIRUBIN,TOTAL 0.3 mg/dL (0.2-1)
[2023-03-05] MEDS: DEXTROSE 5%-0.45% SALINE 1,000 ML IV SCH ×2 (12:38→22:42)
[2023-03-05] MEDS: LORATADINE 10 MG TABLET PO SCH (22:25)
[2023-03-05] MEDS: PRIMIDONE 250 MG TABLET PO SCH (22:25)
[2023-03-05] MEDS: INSULIN (LEVEMIR) 100 UNITS/ML UNITS SQ SCH (22:26)
[2023-03-05] MEDS: LIDOCAINE PATCH REMOVAL MC SCH (22:26)
[2023-03-06] MEDS: POLYETHYLENE GLYCOL (HEALTHYLAX) 3350 17 GM PACKET PO SCH ×3 (06:18→21:41)
[2023-03-06] MEDS: INSULIN SLIDING SCALE (NOVOLOG) 1 VIAL SQ SCH ×4 (06:22→21:44)
[2023-03-06] MEDS: TAMSULOSIN HCL 0.4 MG CAP PO SCH (08:37)
[2023-03-06] MEDS: metoPROLOL SUCCINATE 25 MG TAB.SR.24H (FP) PO SCH ×2 (09:19→21:41)
[2023-03-06] MEDS: LIDOCAINE 5% TOPICAL PATCH TP SCH (09:20)
[2023-03-06] MEDS: ERTAPENEM SODIUM 1 GM in SODIUM CHLORIDE 50 ML IVPB SCH (09:20)
[2023-03-06] MEDS: MULTIVITAMINS THER W-MINERALS COMBO TABLET (FP) PO SCH (09:20)
[2023-03-06] MEDS: MINERAL OIL/PETROLAT/WATER TOPICAL CREAM 454 GM JAR TP SCH ×2 (09:21→21:46)
[2023-03-06] MEDS: DEXTROSE 5%-0.45% SALINE 1,000 ML IV SCH ×2 (10:22→13:05)
[2023-03-06] MEDS: ACETAMINOPHEN 325 MG TABLET (FP) PO PRN ×2 (12:54→17:00)
[2023-03-06] MEDS: LORATADINE 10 MG TABLET PO SCH (21:41)
[2023-03-06] MEDS: PRIMIDONE 250 MG TABLET PO SCH (21:42)
[2023-03-06] MEDS: LIDOCAINE PATCH REMOVAL MC SCH (21:44)
[2023-03-06] MEDS: INSULIN (LEVEMIR) 100 UNITS/ML UNITS SQ SCH (21:44)
[2023-03-07] MEDS: POLYETHYLENE GLYCOL (HEALTHYLAX) 3350 17 GM PACKET PO SCH ×3 (05:13→21:48)
[2023-03-07] MEDS: DEXTROSE 5%-0.45% SALINE 1,000 ML IV SCH ×3 (05:13→18:21)
[2023-03-07] MEDS: INSULIN SLIDING SCALE (NOVOLOG) 1 VIAL SQ SCH ×4 (06:00→21:50)
[2023-03-07 07:43] LABS: BASO % 0.3 % (0-2.0); EOS % 5.2 % (0-4.5); HEMATOCRIT 26.5 % (35.4-49); HEMOGLOBIN 8.6 GM/dL (11.7-16.9); LYMPH % 13.7 % (8-40); MCH 29.5 pg (25.7-33.7); MCHC 32.4 g/dl (32.0-35.9); MEAN CELL VOLUME 90.9 fl (80-96); MEAN PLT VOLUME 8.4 fl (7.5-11.1); MONO % 7.9 % (3.8-10.2); NEUT % 72.9 % (42.8-82.8); PLATELET COUNT 381 10^3/uL (134-434); RBC 2.91 M/mm3 (4.00-5.60); RDW 13.1 % (11.9-15.9); RETICULOCYTES 1.86 % (0.5-1.5); WHITE BLOOD COUNT 9.7 K/mm3 (4.0-10.0)
[2023-03-07] MEDS: TAMSULOSIN HCL 0.4 MG CAP PO SCH (07:49)
[2023-03-07 07:58] LABS: POTASSIUM 4.6 mmol/L (3.5-5.1)
[2023-03-07 08:04] LABS: ALBUMIN 2.1 g/dl (3.4-5.0); BLOOD UREA NITROGEN 25.2 mg/dL (7-18); CALCIUM 8.3 mg/dL (8.5-10.1)
[2023-03-07 08:10] LABS: BILIRUBIN,TOTAL 0.4 mg/dL (0.2-1); TOT PROT 5.7 g/dl (6.4-8.2)
[2023-03-07] MEDS: LIDOCAINE 5% TOPICAL PATCH TP SCH (09:17)
[2023-03-07] MEDS: MINERAL OIL/PETROLAT/WATER TOPICAL CREAM 454 GM JAR TP SCH ×2 (09:17→21:51)
[2023-03-07] MEDS: metoPROLOL SUCCINATE 25 MG TAB.SR.24H (FP) PO SCH ×2 (09:18→21:48)
[2023-03-07] MEDS: ERTAPENEM SODIUM 1 GM in SODIUM CHLORIDE 50 ML IVPB SCH (09:19)
[2023-03-07] MEDS: MULTIVITAMINS THER W-MINERALS COMBO TABLET (FP) PO SCH (09:19)
[2023-03-07] MEDS ORDERED: IRON SUCROSE INJECTION 200 MG in SODIUM CHLORIDE 90 ML IVPB ONE (14:30)
[2023-03-07] MEDS: ACETAMINOPHEN 325 MG TABLET (FP) PO PRN ×2 (16:03→21:59)
[2023-03-07] MEDS ORDERED: INSULIN SLIDING SCALE (NOVOLOG) 1 VIAL SQ ONE (16:48)
[2023-03-07] MEDS: PRIMIDONE 250 MG TABLET PO SCH (21:48)
[2023-03-07] MEDS: LIDOCAINE PATCH REMOVAL MC SCH (21:49)
[2023-03-07] MEDS: INSULIN (LEVEMIR) 100 UNITS/ML UNITS SQ SCH (21:49)
[2023-03-07] MEDS: LORATADINE 10 MG TABLET PO SCH (22:41)
[2023-03-08] MEDS: POLYETHYLENE GLYCOL (HEALTHYLAX) 3350 17 GM PACKET PO SCH ×2 (06:35→22:52)
[2023-03-08] MEDS: DEXTROSE 5%-0.45% SALINE 1,000 ML IV SCH (06:35)
[2023-03-08] MEDS: INSULIN SLIDING SCALE (NOVOLOG) 1 VIAL SQ SCH ×4 (06:39→23:21)
[2023-03-08] MEDS ORDERED: INSULIN (LEVEMIR) 100 UNITS/ML UNITS SQ ONE (07:03)
[2023-03-08] MEDS ORDERED: INSULIN SLIDING SCALE (NOVOLOG) 1 VIAL SQ ONE (07:03)
[2023-03-08 07:59] LABS: BASO % 0.3 % (0-2.0); EOS % 4.2 % (0-4.5); HEMATOCRIT 28.9 % (35.4-49); HEMOGLOBIN 9.4 GM/dL (11.7-16.9); LYMPH % 11.2 % (8-40); MCH 29.4 pg (25.7-33.7); MCHC 32.6 g/dl (32.0-35.9); MEAN CELL VOLUME 90.1 fl (80-96); MEAN PLT VOLUME 7.7 fl (7.5-11.1); MONO % 5.8 % (3.8-10.2); NEUT % 78.5 % (42.8-82.8); PLATELET COUNT 431 10^3/uL (134-434); RBC 3.21 M/mm3 (4.00-5.60); RDW 13.4 % (11.9-15.9)
[2023-03-08 08:21] LABS: POTASSIUM 4.7 mmol/L (3.5-5.1)
[2023-03-08 08:24] LABS: BLOOD UREA NITROGEN 24.4 mg/dL (7-18); CALCIUM 8.9 mg/dL (8.5-10.1)
[2023-03-08 08:25] LABS: ALBUMIN 2.2 g/dl (3.4-5.0)
[2023-03-08 08:27] LABS: CREATININE 1.1 mg/dL (0.55-1.3)
[2023-03-08 08:28] LABS: BILIRUBIN,DIRECT 0.1 mg/dL (0.0-0.2)
[2023-03-08 08:29] LABS: BILIRUBIN,TOTAL 0.4 mg/dL (0.2-1); TOT PROT 6.4 g/dl (6.4-8.2)
[2023-03-08] MEDS: TAMSULOSIN HCL 0.4 MG CAP PO SCH (12:02)
[2023-03-08] MEDS: ERTAPENEM SODIUM 1 GM in SODIUM CHLORIDE 50 ML IVPB SCH (12:02)
[2023-03-08] MEDS: metoPROLOL SUCCINATE 25 MG TAB.SR.24H (FP) PO SCH (12:02)
[2023-03-08] MEDS: LIDOCAINE 5% TOPICAL PATCH TP SCH (12:03)
[2023-03-08] MEDS: MULTIVITAMINS THER W-MINERALS COMBO TABLET (FP) PO SCH (12:03)
[2023-03-08 13:26] LABS: BASO % 0.5 % (0-2.0); EOS % 3.5 % (0-4.5); HEMATOCRIT 22.3 % (35.4-49); LYMPH % 12.6 % (8-40); MCHC 31.1 g/dl (32.0-35.9); MEAN CELL VOLUME 93.2 fl (80-96); MEAN PLT VOLUME 8.6 fl (7.5-11.1); MONO % 5.3 % (3.8-10.2); NEUT % 78.1 % (42.8-82.8); PLATELET COUNT 390 10^3/uL (134-434); RDW 13.1 % (11.9-15.9); WHITE BLOOD COUNT 13.8 K/mm3 (4.0-10.0)
[2023-03-08] MEDS ORDERED: SODIUM CHLORIDE 0.9% 500 ML INFUS.BAG IV ONE ×2 (14:23→16:22)
[2023-03-08] MEDS ORDERED: ACETAMINOPHEN 325 MG TABLET (FP) PO PRN (16:22)
[2023-03-08] MEDS ORDERED: DEXTROSE 5%-0.45% SALINE 1,000 ML IV SCH (16:22)
[2023-03-08] MEDS ORDERED: INSULIN (NOVOLOG) ASPART 100 UNITS/ML 10ML VIAL ONE (17:41)
[2023-03-08] MEDS ORDERED: BISACODYL 5 MG TABLET.DR (FP) PO ONE ×2 (20:00)
[2023-03-08] MEDS ORDERED: PEG 3350/NA SULF BICARB CL/KCL 4000 ML SOLN.RECON PO ONE ×2 (20:00)
[2023-03-08 21:36] LABS: BASO % 0.1 % (0-2.0); EOS % 1.2 % (0-4.5); HEMOGLOBIN 7.3 GM/dL (11.7-16.9); LYMPH % 11.9 % (8-40); MCH 28.3 pg (25.7-33.7); MEAN CELL VOLUME 88.6 fl (80-96); MEAN PLT VOLUME 8.3 fl (7.5-11.1); MONO % 3.9 % (3.8-10.2); NEUT % 82.9 % (42.8-82.8); PLATELET COUNT 313 10^3/uL (134-434); RBC 2.59 M/mm3 (4.00-5.60); RDW 13.7 % (11.9-15.9); WHITE BLOOD COUNT 16.2 K/mm3 (4.0-10.0)
[2023-03-08] MEDS ORDERED: LORATADINE 10 MG TABLET PO SCH (22:00)
[2023-03-08] MEDS: PRIMIDONE 250 MG TABLET PO SCH (22:52)
[2023-03-08] MEDS: LIDOCAINE PATCH REMOVAL MC SCH (22:53)
[2023-03-08] MEDS: INSULIN (LEVEMIR) 100 UNITS/ML UNITS SQ SCH (22:53)
[2023-03-08] MEDS: CHLORHEXIDINE GLUCONATE 4% CLEANSER FOR DECOLONIZATION TP SCH (22:53)
[2023-03-08] MEDS: MINERAL OIL/PETROLAT/WATER TOPICAL CREAM 454 GM JAR TP SCH (22:53)
[2023-03-08] MEDS: MUPIROCIN 2% TOPICAL OINTMENT FOR DECOLONIZATION NS SCH (22:54)
[2023-03-09] MEDS: INSULIN SLIDING SCALE (NOVOLOG) 1 VIAL SQ SCH ×4 (06:05→21:25)
[2023-03-09] MEDS: POLYETHYLENE GLYCOL (HEALTHYLAX) 3350 17 GM PACKET PO SCH (06:05)
[2023-03-09 09:20] LABS: BASO % 0.9 % (0-2.0); EOS % 4.2 % (0-4.5); HEMATOCRIT 22.3 % (35.4-49); HEMOGLOBIN 7.5 GM/dL (11.7-16.9); MCH 29.3 pg (25.7-33.7); MCHC 33.4 g/dl (32.0-35.9); MEAN CELL VOLUME 87.6 fl (80-96); MEAN PLT VOLUME 8.4 fl (7.5-11.1); NEUT % 72.9 % (42.8-82.8); PLATELET COUNT 306 10^3/uL (134-434); RBC 2.55 M/mm3 (4.00-5.60); RDW 13.8 % (11.9-15.9); WHITE BLOOD COUNT 11.3 K/mm3 (4.0-10.0)
[2023-03-09] MEDS: MULTIVITAMINS THER W-MINERALS COMBO TABLET (FP) PO SCH (09:52)
[2023-03-09] MEDS: TAMSULOSIN HCL 0.4 MG CAP PO SCH (09:52)
[2023-03-09] MEDS: LIDOCAINE 5% TOPICAL PATCH TP SCH ×2 (09:54→12:41)
[2023-03-09] MEDS: MUPIROCIN 2% TOPICAL OINTMENT FOR DECOLONIZATION NS SCH ×2 (09:54→21:21)
[2023-03-09 10:02] LABS: CHLORIDE 111 mmol/L (98-107); SODIUM 143 mmol/L (136-145)
[2023-03-09 10:10] LABS: ALBUMIN 1.9 g/dl (3.4-5.0); ANION GAP 7 MMOL/L (8-16); BLOOD UREA NITROGEN 25.1 mg/dL (7-18); CALCIUM 7.7 mg/dL (8.5-10.1); CO2 25 mmol/L (21-32); GLUCOSE,RANDOM 196 mg/dL (74-106); MAGNESIUM 1.9 mg/dL (1.8-2.4); PHOSPHOROUS 3.2 mg/dL (2.5-4.9); SGOT/AST 60 U/L (15-37)
[2023-03-09 10:11] LABS: BILIRUBIN,TOTAL 0.2 mg/dL (0.2-1)
[2023-03-09 10:12] LABS: TOT PROT 5.1 g/dl (6.4-8.2)
[2023-03-09 10:13] LABS: ALK PHOS 65 U/L (45-117); BILIRUBIN,DIRECT < 0.1 mg/dL (0.0-0.2); SGPT/ALT 30 U/L (13-61)
[2023-03-09 10:53] LABS: INR 1.17 (0.83-1.09); PROTHROMBIN TIME (PATIENT) 13.5 SEC (9.7-13.0)
[2023-03-09] MEDS: MINERAL OIL/PETROLAT/WATER TOPICAL CREAM 454 GM JAR TP SCH ×2 (11:00→21:21)
[2023-03-09 15:21] LABS: HEMATOCRIT 28.6 % (35.4-49); HEMOGLOBIN 9.4 GM/dL (11.7-16.9); MCH 29.1 pg (25.7-33.7); MCHC 32.7 g/dl (32.0-35.9); MEAN CELL VOLUME 89.1 fl (80-96); MEAN PLT VOLUME 8.5 fl (7.5-11.1); PLATELET COUNT 313 10^3/uL (134-434); RBC 3.21 M/mm3 (4.00-5.60); RDW 13.7 % (11.9-15.9); WHITE BLOOD COUNT 12.8 K/mm3 (4.0-10.0)
[2023-03-09] MEDS: CHLORHEXIDINE GLUCONATE 4% CLEANSER FOR DECOLONIZATION TP SCH (21:21)
[2023-03-09] MEDS: LIDOCAINE PATCH REMOVAL MC SCH (21:21)
[2023-03-09] MEDS ORDERED: INSULIN (NOVOLOG) ASPART 100 UNITS/ML 10ML VIAL ONE ×3 (21:24→21:42)
[2023-03-09] MEDS: INSULIN (LEVEMIR) 100 UNITS/ML UNITS SQ SCH (21:25)
[2023-03-09] MEDS: PRIMIDONE 250 MG TABLET PO SCH (21:26)
[2023-03-10] MEDS: INSULIN SLIDING SCALE (NOVOLOG) 1 VIAL SQ SCH ×4 (06:50→21:35)
[2023-03-10 07:48] LABS: BASO % 0.4 % (0-2.0); EOS % 4.7 % (0-4.5); HEMATOCRIT 26.5 % (35.4-49); HEMOGLOBIN 8.9 GM/dL (11.7-16.9); LYMPH % 12.8 % (8-40); MCH 29.8 pg (25.7-33.7); MCHC 33.5 g/dl (32.0-35.9); MEAN CELL VOLUME 88.9 fl (80-96); MEAN PLT VOLUME 8.5 fl (7.5-11.1); MONO % 6.4 % (3.8-10.2); NEUT % 75.7 % (42.8-82.8); PLATELET COUNT 334 10^3/uL (134-434); RBC 2.98 M/mm3 (4.00-5.60); RDW 13.9 % (11.9-15.9); WHITE BLOOD COUNT 11.9 K/mm3 (4.0-10.0)
[2023-03-10 07:50] LABS: INR 1.33 (0.83-1.09); PROTHROMBIN TIME (PATIENT) 15.4 SEC (9.7-13.0)
[2023-03-10 07:53] LABS: ACTIVATED PTT 26.4 SECONDS (25.2-36.5)
[2023-03-10 08:05] LABS: POTASSIUM 4.3 mmol/L (3.5-5.1)
[2023-03-10 08:17] LABS: CALCIUM 8.4 mg/dL (8.5-10.1)
[2023-03-10 08:18] LABS: ALBUMIN 2.2 g/dl (3.4-5.0); BLOOD UREA NITROGEN 24.1 mg/dL (7-18); MAGNESIUM 1.9 mg/dL (1.8-2.4)
[2023-03-10 08:19] LABS: BILIRUBIN,DIRECT 0.1 mg/dL (0.0-0.2)
[2023-03-10 08:21] LABS: BILIRUBIN,TOTAL 0.3 mg/dL (0.2-1); PHOSPHOROUS 3.1 mg/dL (2.5-4.9); TOT PROT 5.7 g/dl (6.4-8.2)
[2023-03-10] MEDS: LIDOCAINE 5% TOPICAL PATCH TP SCH (09:38)
[2023-03-10] MEDS: TAMSULOSIN HCL 0.4 MG CAP PO SCH (09:41)
[2023-03-10] MEDS: MULTIVITAMINS THER W-MINERALS COMBO TABLET (FP) PO SCH (09:42)
[2023-03-10] MEDS: MINERAL OIL/PETROLAT/WATER TOPICAL CREAM 454 GM JAR TP SCH ×2 (09:44→21:30)
[2023-03-10] MEDS: MUPIROCIN 2% TOPICAL OINTMENT FOR DECOLONIZATION NS SCH (09:44)
[2023-03-10] MEDS ORDERED: ACETAMINOPHEN 325 MG TABLET (FP) PO SCH (10:00)
[2023-03-10] MEDS ORDERED: POLYETHYLENE GLYCOL (HEALTHYLAX) 3350 17 GM PACKET PO SCH (10:00)
[2023-03-10] MEDS: POLYETHYLENE GLYCOL (HEALTHYLAX) 3350 17 GM PACKET PO SCH (10:24)
[2023-03-10] MEDS ORDERED: INSULIN (NOVOLOG) ASPART 100 UNITS/ML 10ML VIAL ONE ×4 (11:20→21:34)
[2023-03-10 12:43] VITALS: BMI 23.3
[2023-03-10 15:28] LABS: HEMATOCRIT 27.6 % (35.4-49); HEMOGLOBIN 9.1 GM/dL (11.7-16.9); MCH 29.4 pg (25.7-33.7); MCHC 32.8 g/dl (32.0-35.9); MEAN CELL VOLUME 89.5 fl (80-96); PLATELET COUNT 350 10^3/uL (134-434); RBC 3.08 M/mm3 (4.00-5.60); RDW 14.1 % (11.9-15.9); WHITE BLOOD COUNT 12.6 K/mm3 (4.0-10.0)
[2023-03-10 18:16] LABS: HEMOGLOBIN 8.4 GM/dL (11.7-16.9); MCH 26.9 pg (25.7-33.7); MCHC 30.1 g/dl (32.0-35.9); MEAN CELL VOLUME 89.6 fl (80-96); MEAN PLT VOLUME 8.6 fl (7.5-11.1); PLATELET COUNT 381 10^3/uL (134-434); RBC 3.13 M/mm3 (4.00-5.60); WHITE BLOOD COUNT 15.6 K/mm3 (4.0-10.0)
[2023-03-10] MEDS: ACETAMINOPHEN 325 MG TABLET (FP) PO SCH (21:35)
[2023-03-10] MEDS ORDERED: INSULIN (LEVEMIR) 100 UNITS/ML UNITS SQ SCH (22:00)
[2023-03-10] MEDS ORDERED: CHLORHEXIDINE GLUCONATE 4% CLEANSER FOR DECOLONIZATION TP SCH (22:00)
[2023-03-10] MEDS ORDERED: PRIMIDONE 250 MG TABLET PO SCH (22:00)
[2023-03-10] MEDS ORDERED: MUPIROCIN 2% TOPICAL OINTMENT FOR DECOLONIZATION NS SCH (22:00)
[2023-03-10] MEDS ORDERED: LIDOCAINE PATCH REMOVAL MC SCH (22:00)
[2023-03-10 23:07] LABS: GLIADIN ANTIBODY IGA 8 units (0-19); GLIADIN ANTIBODY IGG 4 units (0-19); TRANSGLUTAMINASE IGG < 2 U/mL (0-5)
[2023-03-11] MEDS: INSULIN SLIDING SCALE (NOVOLOG) 1 VIAL SQ SCH ×3 (06:23→18:42)
[2023-03-11 08:05] LABS: HEMATOCRIT 27.2 % (35.4-49); HEMOGLOBIN 8.9 GM/dL (11.7-16.9); MCH 29.5 pg (25.7-33.7); MCHC 32.8 g/dl (32.0-35.9); MEAN PLT VOLUME 8.9 fl (7.5-11.1); PLATELET COUNT 357 10^3/uL (134-434); RBC 3.03 M/mm3 (4.00-5.60); WHITE BLOOD COUNT 9.3 K/mm3 (4.0-10.0)
[2023-03-11 08:14] LABS: POTASSIUM 4.3 mmol/L (3.5-5.1)
[2023-03-11] MEDS ORDERED: TAMSULOSIN HCL 0.4 MG CAP PO SCH (08:30)
[2023-03-11 08:39] LABS: BLOOD UREA NITROGEN 28.3 mg/dL (7-18); CALCIUM 8.7 mg/dL (8.5-10.1)
[2023-03-11 08:40] LABS: ALBUMIN 2.2 g/dl (3.4-5.0); MAGNESIUM 2.1 mg/dL (1.8-2.4)
[2023-03-11 08:41] LABS: PHOSPHOROUS 3.3 mg/dL (2.5-4.9)
[2023-03-11 08:43] LABS: BILIRUBIN,DIRECT 0.1 mg/dL (0.0-0.2)
[2023-03-11 08:44] LABS: TOT PROT 5.8 g/dl (6.4-8.2)
[2023-03-11 08:46] LABS: BILIRUBIN,TOTAL 0.4 mg/dL (0.2-1)
[2023-03-11] MEDS ORDERED: MULTIVITAMINS THER W-MINERALS COMBO TABLET (FP) PO SCH (10:00)
[2023-03-11] MEDS ORDERED: LIDOCAINE 5% TOPICAL PATCH TP SCH (10:00)
[2023-03-11] MEDS ORDERED: POLYETHYLENE GLYCOL (HEALTHYLAX) 3350 17 GM PACKET PO SCH (10:00)
[2023-03-11] MEDS: ACETAMINOPHEN 325 MG TABLET (FP) PO SCH (10:21)
[2023-03-11] MEDS: MINERAL OIL/PETROLAT/WATER TOPICAL CREAM 454 GM JAR TP SCH (10:23)
[2023-03-11 10:53] LABS: ANISOCYTOSIS 1+; MACROCYTOSIS 0
[2023-03-11 15:26] VITALS: RESP 18
[2023-03-11 18:47] VITALS: BP 126/61; PULSE 65; TEMP 97.7
== END 2023-03-11 19:42 | DRG 689 ==
LOC: JER 01:31 → JERBED 05:39 → J4S 23:09 → UNDODISIN 03-05 16:38 → JICU 03-08 15:41 → J4W 03-10 15:52
PROVIDERS: ADMIT Internal Medicine; ATTEND Internal Medicine
PROC: 30233N1 Transfusion of Nonautologous Red Blood Cells into Peripheral Vein, Percutaneous Approach (ICD-10-PCS; 2023-03-08)
PROC: 0DBE8ZX Excision of Large Intestine, Via Natural or Artificial Opening Endoscopic, Diagnostic (ICD-10-PCS; principal; 2023-03-09 13:45)
DX: N39.0 Urinary tract infection, site not specified (principal); G93.41 Metabolic encephalopathy; K57.91 Diverticulosis of intestine, part unspecified, without perforation or abscess with bleeding; I24.8 Other forms of acute ischemic heart disease; N17.9 Acute kidney failure, unspecified; I47.1 Supraventricular tachycardia; Z16.12 Extended spectrum beta lactamase (ESBL) resistance; E87.0 Hyperosmolality and hypernatremia; I10 Essential (primary) hypertension; G20 Parkinson's disease; E78.5 Hyperlipidemia, unspecified; E11.9 Type 2 diabetes mellitus without complications; I25.10 Atherosclerotic heart disease of native coronary artery without angina pectoris; R41.82 Altered mental status, unspecified; D64.9 Anemia, unspecified; K56.41 Fecal impaction; R33.9 Retention of urine, unspecified; K63.5 Polyp of colon; K64.8 Other hemorrhoids
CPT/HCPCS: 0241U-QW; 36415; 36430; 71045-TC-FY; 74174-TC; 80048; 80053; 80076; 81003; 82378; 82436; 82570; 82728; 82784; 82803; 82962; 83036; 83516; 83540; 83550; 83605; 83735; 84100; 84132; 84133; 84156; 84300; 84484; 85025; 85027; 85045; 85610; 85730; 86038; 86140; 86803; 86850; 86900; 86901; 86922; 87040; 87086; 87186; 88305-TC; 93005; 93010; 93306-TC; 97116-GP; 97161-GP; 99285-25; J1756; P9058

== ENCOUNTER 2023-03-14 06:50 | Emergency (ER) | payer OTHER, MEDICARE ==
[2023-03-14 07:01] VITALS: TEMP 97.7; BMI 23.0
[2023-03-14] MEDS ORDERED: SODIUM CHLORIDE 0.9% 500 ML INFUS.BAG IV ONE (07:45)
[2023-03-14 09:28] LABS: BASO % 0.5 % (0-2.0); EOS % 2.1 % (0-4.5); HEMATOCRIT 24.6 % (35.4-49); LYMPH % 14.8 % (8-40); MCH 30.1 pg (25.7-33.7); MCHC 32.6 g/dl (32.0-35.9); MEAN CELL VOLUME 92.4 fl (80-96); MEAN PLT VOLUME 8.2 fl (7.5-11.1); MONO % 5.8 % (3.8-10.2); NEUT % 76.8 % (42.8-82.8); PLATELET COUNT 391 10^3/uL (134-434); RBC 2.67 M/mm3 (4.00-5.60); RDW 14.5 % (11.9-15.9); WHITE BLOOD COUNT 10.8 K/mm3 (4.0-10.0)
[2023-03-14 09:35] LABS: INR 1.25 (0.83-1.09); PROTHROMBIN TIME (PATIENT) 14.5 SEC (9.7-13.0)
[2023-03-14 09:38] LABS: ACTIVATED PTT 26.4 SECONDS (25.2-36.5)
[2023-03-14 10:24] LABS: ALBUMIN 2.5 g/dl (3.4-5.0); BLOOD UREA NITROGEN 29.4 mg/dL (7-18)
[2023-03-14 10:27] LABS: CREATININE 1.4 mg/dL (0.55-1.3)
[2023-03-14 10:28] LABS: BILIRUBIN,TOTAL 0.3 mg/dL (0.2-1); TOT PROT 6.2 g/dl (6.4-8.2)
[2023-03-14 12:05] VITALS: RESP 15
[2023-03-14 13:37] VITALS: BP 108/56; PULSE 73
== END 2023-03-14 13:42 ==
LOC: JER 06:50
DX: K62.5 Hemorrhage of anus and rectum (principal)
CPT/HCPCS: 36415; 80053; 82272; 85025; 85610; 85730; 86850; 86900; 86901; 99284-25

== ENCOUNTER 2023-03-18 01:09 | Inpatient (IN) | payer OTHER, MEDICARE ==
[2023-03-18] MEDS ORDERED: SODIUM CHLORIDE 500 ML IV STA (01:16)
[2023-03-18 01:45] LABS: BASO % 0.8 % (0-2.0); EOS % 5.7 % (0-4.5); HEMATOCRIT 20.7 % (35.4-49); LYMPH % 29.1 % (8-40); MCH 29.9 pg (25.7-33.7); MCHC 32.1 g/dl (32.0-35.9); MEAN CELL VOLUME 93.2 fl (80-96); MEAN PLT VOLUME 7.1 fl (7.5-11.1); NEUT % 56.4 % (42.8-82.8); PLATELET COUNT 356 10^3/uL (134-434); RBC 2.22 M/mm3 (4.00-5.60); RDW 16.1 % (11.9-15.9); WHITE BLOOD COUNT 7.1 K/mm3 (4.0-10.0)
[2023-03-18 01:53] LABS: HEMOGLOBIN 6.6 GM/dL (11.7-16.9)
[2023-03-18 01:56] LABS: INR 1.16 (0.83-1.09); PROTHROMBIN TIME (PATIENT) 13.4 SEC (9.7-13.0)
[2023-03-18 01:59] LABS: ACTIVATED PTT 25.8 SECONDS (25.2-36.5)
[2023-03-18 02:16] LABS: POTASSIUM 4.8 mmol/L (3.5-5.1)
[2023-03-18 02:19] LABS: ALBUMIN 2.4 g/dl (3.4-5.0); BLOOD UREA NITROGEN 26.6 mg/dL (7-18); CALCIUM 8.5 mg/dL (8.5-10.1); MAGNESIUM 2.3 mg/dL (1.8-2.4)
[2023-03-18 02:22] LABS: CREATININE 1.2 mg/dL (0.55-1.3); PHOSPHOROUS 3.4 mg/dL (2.5-4.9)
[2023-03-18 02:23] LABS: BILIRUBIN,TOTAL 0.1 mg/dL (0.2-1)
[2023-03-18 02:24] LABS: TOT PROT 5.9 g/dl (6.4-8.2)
[2023-03-18 02:27] LABS: N-TERMINAL BNP 327.2 pg/ml (5-450)
[2023-03-18 08:28] LABS: EPI CELLS 23 /uL (0-25.1); HYALINE CASTS 2 /uL (0-3.1); URINE APPEARANCE CLEAR; URINE BACTERIA 3 /uL (0-1359); URINE BILIRUBIN NEGATIVE (NEGATIVE); URINE COLOR YELLOW; URINE GLUCOSE (UA) NEGATIVE (NEGATIVE); URINE KETONE NEGATIVE (NEGATIVE); URINE LEUK ESTERASE 1+ (NEGATIVE); URINE NITRITE NEGATIVE (NEGATIVE); URINE PROTEIN 1+ (NEGATIVE); URINE RBC 15 /uL (0-23.9); URINE UROBILINOGEN 0.2 mg/dL (0.2-1.0); URINE WBC 302 /uL (0-25.8)
[2023-03-18 12:42] LABS: BASO % 0.4 % (0-2.0); EOS % 6.1 % (0-4.5); HEMATOCRIT 26.1 % (35.4-49); HEMOGLOBIN 8.7 GM/dL (11.7-16.9); LYMPH % 25.8 % (8-40); MCHC 33.2 g/dl (32.0-35.9); MEAN CELL VOLUME 90.4 fl (80-96); MEAN PLT VOLUME 7.3 fl (7.5-11.1); MONO % 7.4 % (3.8-10.2); NEUT % 60.3 % (42.8-82.8); PLATELET COUNT 287 10^3/uL (134-434); RBC 2.88 M/mm3 (4.00-5.60); RDW 14.9 % (11.9-15.9); WHITE BLOOD COUNT 7.4 K/mm3 (4.0-10.0)
[2023-03-18] MEDS ORDERED: LIDOCAINE 5% TOPICAL PATCH ONE (13:09)
[2023-03-18] MEDS: LIDOCAINE 5% TOPICAL PATCH TP SCH (13:17)
[2023-03-18] MEDS ORDERED: BISACODYL 5 MG TABLET.DR (FP) PO ONE (16:00)
[2023-03-18 16:25] VITALS: BMI 21.9
[2023-03-18] MEDS ORDERED: PEG 3350/NA SULF BICARB CL/KCL 4000 ML SOLN.RECON PO ONE (17:00)
[2023-03-18] MEDS: PRIMIDONE 250 MG TABLET PO SCH (21:43)
[2023-03-18] MEDS: LIDOCAINE PATCH REMOVAL MC SCH (23:14)
[2023-03-19 08:29] LABS: BASO % 0.7 % (0-2.0); EOS % 7.3 % (0-4.5); HEMATOCRIT 24.8 % (35.4-49); HEMOGLOBIN 8.2 GM/dL (11.7-16.9); LYMPH % 20.1 % (8-40); MCH 30.4 pg (25.7-33.7); MEAN CELL VOLUME 92.1 fl (80-96); MEAN PLT VOLUME 8.3 fl (7.5-11.1); MONO % 7.7 % (3.8-10.2); NEUT % 64.2 % (42.8-82.8); PLATELET COUNT 288 10^3/uL (134-434); RDW 15.3 % (11.9-15.9); WHITE BLOOD COUNT 7.3 K/mm3 (4.0-10.0)
[2023-03-19 08:33] LABS: INR 1.16 (0.83-1.09); PROTHROMBIN TIME (PATIENT) 13.4 SEC (9.7-13.0)
[2023-03-19 08:48] LABS: POTASSIUM 4.2 mmol/L (3.5-5.1)
[2023-03-19 08:49] LABS: CALCIUM 8.4 mg/dL (8.5-10.1)
[2023-03-19 08:53] LABS: CREATININE 0.9 mg/dL (0.55-1.3)
[2023-03-19] MEDS: metoPROLOL SUCCINATE 25 MG TAB.SR.24H (FP) PO SCH (09:40)
[2023-03-19] MEDS: LIDOCAINE 5% TOPICAL PATCH TP SCH (09:40)
[2023-03-19] MEDS: TAMSULOSIN HCL 0.4 MG CAP PO SCH (09:41)
[2023-03-19] MEDS ORDERED: LIDOCAINE HCL 2% JELLY 10 ML CARTRIDGE ONE (13:20)
[2023-03-19] MEDS ORDERED: ETOMIDATE 20 MG/10 ML VIAL IVPUSH ONE (14:09)
[2023-03-19] MEDS ORDERED: LIDOCAINE HCL 2% JELLY 10 ML CARTRIDGE TP ONE (14:43)
[2023-03-19] MEDS ORDERED: LIDOCAINE HCL 2% JELLY 10 ML CARTRIDGE RC PRN (15:15)
[2023-03-19] MEDS ORDERED: ACETAMINOPHEN INJECTION 100 ML IVPB ONE (15:16)
[2023-03-19] MEDS ORDERED: ACETAMINOPHEN 1000 MG/100 ML BAG IVPB ONE (15:20)
[2023-03-19 17:53] LABS: POTASSIUM 4.2 mmol/L (3.5-5.1)
[2023-03-19 17:55] LABS: CALCIUM 8.6 mg/dL (8.5-10.1)
[2023-03-19 17:56] LABS: ALBUMIN 2.4 g/dl (3.4-5.0); BLOOD UREA NITROGEN 12.8 mg/dL (7-18)
[2023-03-19 18:00] LABS: TOT PROT 5.5 g/dl (6.4-8.2)
[2023-03-19 18:01] LABS: BILIRUBIN,TOTAL 0.2 mg/dL (0.2-1)
[2023-03-19] MEDS: PRIMIDONE 250 MG TABLET PO SCH (21:41)
[2023-03-19] MEDS: ACETAMINOPHEN 325 MG TABLET (FP) PO PRN (21:42)
[2023-03-19] MEDS: POLYETHYLENE GLYCOL (HEALTHYLAX) 3350 17 GM PACKET PO SCH (21:49)
[2023-03-19] MEDS: LIDOCAINE PATCH REMOVAL MC SCH (21:54)
[2023-03-19] MEDS ORDERED: IBUPROFEN 400 MG TABLET (FP) PO SCH (22:00)
[2023-03-20] MEDS: ACETAMINOPHEN 325 MG TABLET (FP) PO PRN ×2 (04:13→22:41)
[2023-03-20 06:49] LABS: BASO % 0.7 % (0-2.0); EOS % 9.2 % (0-4.5); HEMATOCRIT 24.2 % (35.4-49); HEMOGLOBIN 7.9 GM/dL (11.7-16.9); LYMPH % 25.6 % (8-40); MCH 30.5 pg (25.7-33.7); MCHC 32.8 g/dl (32.0-35.9); MEAN CELL VOLUME 93.1 fl (80-96); MONO % 7.6 % (3.8-10.2); NEUT % 56.9 % (42.8-82.8); PLATELET COUNT 268 10^3/uL (134-434); RDW 15.9 % (11.9-15.9); WHITE BLOOD COUNT 5.6 K/mm3 (4.0-10.0)
[2023-03-20] MEDS: metoPROLOL SUCCINATE 25 MG TAB.SR.24H (FP) PO SCH (09:45)
[2023-03-20] MEDS: POLYETHYLENE GLYCOL (HEALTHYLAX) 3350 17 GM PACKET PO SCH ×2 (09:45→22:39)
[2023-03-20] MEDS: TAMSULOSIN HCL 0.4 MG CAP PO SCH (09:46)
[2023-03-20] MEDS: LIDOCAINE 5% TOPICAL PATCH TP SCH (09:46)
[2023-03-20] MEDS: LIDOCAINE HCL 2% JELLY 10 ML CARTRIDGE RC PRN (13:19)
[2023-03-20] MEDS: PRIMIDONE 250 MG TABLET PO SCH (22:37)
[2023-03-20] MEDS: LIDOCAINE PATCH REMOVAL MC SCH (22:37)
[2023-03-21 08:33] LABS: BASO % 0.6 % (0-2.0); EOS % 6.8 % (0-4.5); HEMATOCRIT 26.7 % (35.4-49); HEMOGLOBIN 8.5 GM/dL (11.7-16.9); MCH 30.3 pg (25.7-33.7); MEAN CELL VOLUME 94.7 fl (80-96); MEAN PLT VOLUME 8.1 fl (7.5-11.1); MONO % 7.6 % (3.8-10.2); PLATELET COUNT 281 10^3/uL (134-434); RBC 2.83 M/mm3 (4.00-5.60); RDW 17.2 % (11.9-15.9); WHITE BLOOD COUNT 6.6 K/mm3 (4.0-10.0)
[2023-03-21] MEDS: TAMSULOSIN HCL 0.4 MG CAP PO SCH (08:43)
[2023-03-21 08:53] LABS: POTASSIUM 4.8 mmol/L (3.5-5.1)
[2023-03-21 08:55] LABS: ALBUMIN 2.6 g/dl (3.4-5.0)
[2023-03-21 08:56] LABS: BLOOD UREA NITROGEN 12.9 mg/dL (7-18)
[2023-03-21 08:58] LABS: CREATININE 1.1 mg/dL (0.55-1.3)
[2023-03-21 09:01] LABS: BILIRUBIN,TOTAL 0.1 mg/dL (0.2-1)
[2023-03-21] MEDS: POLYETHYLENE GLYCOL (HEALTHYLAX) 3350 17 GM PACKET PO SCH ×2 (09:57→22:16)
[2023-03-21] MEDS: LIDOCAINE 5% TOPICAL PATCH TP SCH (09:57)
[2023-03-21] MEDS: metoPROLOL SUCCINATE 25 MG TAB.SR.24H (FP) PO SCH (09:57)
[2023-03-21] MEDS: LIDOCAINE HCL 2% JELLY 10 ML CARTRIDGE RC PRN (17:07)
[2023-03-21] MEDS ORDERED: SENNOSIDES 8.6MG TABLET (FP) PO SCH (22:00)
[2023-03-21] MEDS: PRIMIDONE 250 MG TABLET PO SCH (22:16)
[2023-03-21] MEDS: LIDOCAINE PATCH REMOVAL MC SCH (22:16)
[2023-03-22 02:46] VITALS: RESP 18
[2023-03-22 08:05] LABS: HEMATOCRIT 27.5 % (35.4-49); HEMOGLOBIN 8.9 GM/dL (11.7-16.9); MCH 30.8 pg (25.7-33.7); MCHC 32.5 g/dl (32.0-35.9); MEAN CELL VOLUME 94.9 fl (80-96); MEAN PLT VOLUME 8.4 fl (7.5-11.1); PLATELET COUNT 300 10^3/uL (134-434); WHITE BLOOD COUNT 6.8 K/mm3 (4.0-10.0)
[2023-03-22] MEDS: TAMSULOSIN HCL 0.4 MG CAP PO SCH (08:12)
[2023-03-22] MEDS: LIDOCAINE 5% TOPICAL PATCH TP SCH (09:43)
[2023-03-22] MEDS: metoPROLOL SUCCINATE 25 MG TAB.SR.24H (FP) PO SCH (09:43)
[2023-03-22] MEDS: POLYETHYLENE GLYCOL (HEALTHYLAX) 3350 17 GM PACKET PO SCH (09:44)
[2023-03-22 16:05] VITALS: BP 132/67; PULSE 72; TEMP 98.3
== END 2023-03-22 17:46 | DRG 348 ==
LOC: JER 01:09 → JERBED 01:15 → J4W 15:25
PROVIDERS: ADMIT Internal Medicine; ATTEND Internal Medicine
PROC: 30233N1 Transfusion of Nonautologous Red Blood Cells into Peripheral Vein, Percutaneous Approach (ICD-10-PCS; 2023-03-18)
PROC: 0DJD8ZZ Inspection of Lower Intestinal Tract, Via Natural or Artificial Opening Endoscopic (ICD-10-PCS; 2023-03-19)
PROC: 06LY8CC Occlusion of Hemorrhoidal Plexus with Extraluminal Device, Via Natural or Artificial Opening Endoscopic (ICD-10-PCS; principal; 2023-03-19 13:30)
DX: K64.8 Other hemorrhoids (principal); D62 Acute posthemorrhagic anemia; K62.6 Ulcer of anus and rectum; K92.1 Melena; K57.30 Diverticulosis of large intestine without perforation or abscess without bleeding; I10 Essential (primary) hypertension; I25.10 Atherosclerotic heart disease of native coronary artery without angina pectoris; E78.5 Hyperlipidemia, unspecified; E11.9 Type 2 diabetes mellitus without complications; G20 Parkinson's disease; Z79.4 Long term (current) use of insulin; K59.00 Constipation, unspecified
CPT/HCPCS: 36415; 36430; 71045-TC-FY; 80048; 80053; 81003; 82272; 82962; 83605; 83690; 83735; 83880; 84100; 84484; 85025; 85027; 85610; 85730; 86850; 86900; 86901; 86922; 87635; 93005; 93010; 99285-25; P9058